=== PATIENT | female | born 1945 | race Caucasian/White ===

== ENCOUNTER → 2018-02-16 16:12 | Outpatient (CLI) | payer MEDICARE, BC, SELFPAY ==
--- NOTE | 2018-02-16 16:23 | DI.RAD.S_ITS ---
PROCEDURE: XR KNEE RT 3V INDICATIONS: pain TECHNIQUE: 3 views of the knee were acquired. COMPARISON: None. FINDINGS: Bones: No fractures or dislocations. No suspicious bony lesions. Soft tissues: No joint effusion. No suspicious soft tissue calcifications. IMPRESSION: Mild medial compartment joint with narrowing, consistent with mild osteoarthritis. A small amount of degenerative spurring is seen at the patellofemoral joint on the lateral projection. Overall, mild osteoarthritis. Dictated by: Seth Gonsalez M.D. on 02/16/2018 at 17:08 Approved by: Seth Gonsalez M.D. on 02/16/2018 at 17:08
--- NOTE | 2018-02-16 16:23 | DI.RAD.S_ITS ---
PROCEDURE: XR HIP W PEL IF DONE RT 2V INDICATIONS: pain TECHNIQUE: AP pelvis with lateral view(s) of the right hip. COMPARISON: None. FINDINGS: Bones: No fractures or dislocations. Pelvic ring appears intact. No suspicious bony lesions. Prior spine fusion posteriorly with transverse pedicle screws and vertical fixation rods and an interbody disc prosthesis at L4-5. Mild hip joint osteoarthritis symmetric bilaterally. Soft tissues: The visualized bowel gas pattern is normal. No suspicious soft tissue calcifications. IMPRESSION: Mild bilateral hip joint osteoarthritis symmetric bilaterally. Prior spine fusion L4-5. No definite acute disease. No trauma found. Dictated by: Seth Gonsalez M.D. on 02/16/2018 at 17:07 Approved by: Seth Gonsalez M.D. on 02/16/2018 at 17:08
== END ==
PROVIDERS: Visit Provider Physician Assistant
DX: M16.0 Bilateral primary osteoarthritis of hip (principal); Z98.1 Arthrodesis status
CPT/HCPCS: 73502; 73562

== ENCOUNTER → 2018-05-26 16:16 | Outpatient (CLI) | payer MEDICARE, BC, SELFPAY ==
--- NOTE | 2018-05-26 | DI.MRI.S_ITS ---
PROCEDURE: MR KNEE RT WO CON INDICATIONS: TEAR TECHNIQUE: Noncontrast sagittal PD fast spin echo and T2 fast spin echo with fat saturation, sagittal 3-D FLASH with fat saturation; coronal T1 spin echo and PD fast spin echo with fat saturation, and axial PD fast spin echo with fat saturation through the knee. COMPARISON: None. FINDINGS: Image quality: Excellent. Menisci: There is no evidence of focal medial or lateral meniscal tear. Degenerative changes are noted in posterior horn medial meniscus. The meniscal root ligaments appear intact. Cruciate ligaments: The anterior and posterior cruciate ligaments appear intact. Medial structures: The medial collateral ligament appears intact. The posterior oblique ligament, semimembranosus tendon insertions, oblique popliteal ligament, and meniscocapsular junction appear intact. Visualized portions of the pes anserinus tendons appear normal. No abnormal bursal fluid. Lateral structures: The lateral collateral ligament, long and short heads of the biceps femoris tendon appear intact. The popliteus tendon appears normal; the popliteofibular ligament appears intact. The posterosuperior and anteroinferior popliteomeniscal fascicles appear intact. The arcuate and fabellofibular ligaments appear intact, on either side of the lateral inferior geniculate artery. Iliotibial band appears normal. Anterior structures: The quadriceps and patellar tendons appear intact. Patellar alignment is normal. No femoral trochlear dysplasia or ventral trochlear prominence. No edema in the infrapatellar fat pad. Bones and cartilage: There is mild to moderate tricompartment osteoarthritis with thinning of articulating cartilages in all 3 compartments, joint space narrowing and subchondral sclerosis. No marrow edema. No fracture or dislocation. Joint space: There is small amount of joint fluid. No Grant's cyst. Normal appearing synovial plicae are incidentally noted. IMPRESSION: 1. Mild to moderate tricompartmental osteoarthritis and small joint effusion. No fracture or dislocation. 2. No MR evidence of focal meniscal tear. Cruciate ligaments are intact. Dictated by: Bentley Bennett M.D. on 05/27/2018 9:17 Approved by: Bentley Bennett M.D. on 05/27/2018 at 10:07
--- NOTE | 2018-05-26 | DI.US.S_ITS ---
PROCEDURE: US PERIPH VENOUS LOW EXTREM RT INDICATIONS: Possible DVT. TECHNIQUE: Real-time imaging, as well as color and pulse Doppler interrogation, were performed of the lower extremity deep veins from the inguinal ligament to the popliteal fossa. COMPARISON: None. FINDINGS: The deep veins are normally compressible, and free of intraluminal thrombus. Color and pulse Doppler demonstrate normal phasic intraluminal flow. There is normal augmentation response to distal compression maneuver. IMPRESSION: No DVT found. Dictated by: Seth Gonsalez M.D. on 05/26/2018 at 16:55 Approved by: Seth Gonsalez M.D. on 05/26/2018 at 17:13
== END ==
PROVIDERS: Visit Provider Physician Assistant Medical
DX: M17.11 Unilateral primary osteoarthritis, right knee (principal); M25.461 Effusion, right knee; Z13.89 Encounter for screening for other disorder
CPT/HCPCS: 73721; 93971

== ENCOUNTER 2019-01-01 12:37 | Emergency (ER) | payer MEDICARE, BC, SELFPAY ==
[2019-01-01 12:41] VITALS: BP 145/70; PULSE 77; RESP 16; TEMP 36.8; O2SAT 99; BMI 28.8
[2019-01-01 13:22] LABS: RBC Urine 1-5/HPF (0-5/HPF)
[2019-01-01 13:23] LABS: Bacteria Urine Moderate (10-30); Culture Indicated Urine Specimen Cultured; Mucus Urine 1+ (Negative); Squamous Epithelial Cell Urine 1-5 /HPF; Urine Comments UNSPUN; WBC Urine 5-10/HPF (0-5/HPF)
--- NOTE | 2019-01-01 14:02 | ED_ITS ---
HPI - Female Genitourinary <CORY Pak - Last Filed: 01/01/19 15:00> General Chief complaint: Urogenital-Female Stated complaint: UTI Time Seen by Provider: 01/01/19 12:59 Source: patient Mode of arrival: ambulatory Limitations: no limitations History of Present Illness HPI Narrative: The patient is a 73-year-old female nonsmoker with history of hypertension and high cholesterol presents with a chief complaint of ?I believe I have a UTI still. She was treated for UTI last month with Macrobid, felt better for a few days and then immediately had dysuria urgency and frequency return. She denies any fevers, nausea vomiting or diarrhea. She denies any abdominal pain. she states she is concerned about her continued symptoms as she is supposed to fly to [place] tomorrow. She denies any vaginal bleeding or vaginal discharge. she denies any rashes. she denies any flank or back pain. Related Data Home Medications Medication Instructions Recorded Confirmed aspirin 81 mg tablet,delayed 81 mg PO DAILY 02/16/18 02/16/18 release atorvastatin 10 mg tablet 10 mg PO DAILY 02/16/18 02/16/18 biotin 1 mg capsule 1 mg PO DAILY 02/16/18 02/16/18 cholecalciferol (vitamin D3) 2,000 2,000 unit PO DAILY 02/16/18 02/16/18 unit capsule [id number]-[id number] tab PO tab 02/16/18 02/16/18 250 mg-250 mg-120 mg tab docusate sodium 100 mg capsule 100 mg PO DAILY 02/16/18 02/16/18 ibuprofen 200 mg tablet 200 mg PO QID PRN 02/16/18 02/16/18 magnesium hydroxide 400 mg/5 mL 5 ml PO BEDTIME PRN 02/16/18 02/16/18 oral suspension omega-3 fatty acids 1,000 mg 1,000 mg PO DAILY 02/16/18 02/16/18 capsule valsartan 40 mg tablet 40 mg PO BID 02/16/18 02/16/18 Allergies Allergy/AdvReac Type Severity Reaction Status Date / Time Sulfa (Sulfonamide Allergy Intermediate rash Verified 01/01/19 12:44 Antibiotics) Review of Systems <CORY Pak - Last Filed: 01/01/19 15:00> Review of Systems GENERAL: Denies chills, fatigue, malaise, fever, sweats. HEENT: Denies sinus pain, ear pain, sore throat, difficulty swallowing, dizziness. RESPIRATORY: Denies dyspnea, cough, wheezing, hemoptysis, sputum. CARDIOVASCULAR: Denies chest pain, palpitations, orthopnea, edema, GASTROINTESTINAL: Denies nausea, vomiting, abdominal pain, diarrhea, constipation, melena. : See HPI MUSCULOSKELETAL: denies weakness, joint pain, or bony pain SKIN: Denies rash, skin lesions, or other NEUROLOGIC: Denies weakness, headache, numbness, change in speech, confusion, seizures, incoordination. PSYCHIATRIC: No concerning psychosocial issues. 12 point review of systems is negative except for those stated above PFSH <CORY Pak - Last Filed: 01/01/19 15:00> Social History Smoking Status: Never smoker Social History Smoking Status: Never smoker Exam <CORY Pak - Last Filed: 01/01/19 15:00> Narrative Exam Narrative: GENERAL: This is a well-nourished, well-developed patient, sitting on stretcher appears anxious HEAD: Atraumatic. Normocephalic. No temporal or scalp tenderness. EYES: Pupils equal round and reactive. Extraocular motions intact. No scleral icterus. No injection or drainage. ENT: Nose without bleeding, purulent drainage or septal hematoma. Throat without erythema, tonsillar hypertrophy or exudate. Uvula midline. Airway patent. NECK: Trachea midline. No JVD or lymphadenopathy. Supple, nontender, no meningeal signs. CARDIOVASCULAR: Regular rate and rhythm RESPIRATORY: Clear to auscultation. Breath sounds equal bilaterally. No wheezes, rales, or rhonchi. No cough. No increased respiratory effort. GASTROINTESTINAL: Abdomen soft, non-tender, nondistended. No hepato- splenomegaly, or palpable masses. No guarding. EXTREMITIES: No clubbing, cyanosis, or edema. No joint tenderness, effusion, or edema noted. BACK: Nontender without deformity or crepitance. No flank tenderness. no CVA tenderness bilaterally. NEURO: AOx3. SKIN: No rash or erythema. Initial Vital Signs Initial Vital Signs: Vital Signs Temperature 98.2 F 01/01/19 12:41 Pulse Rate 77 01/01/19 12:41 Respiratory Rate 16 01/01/19 12:41 Blood Pressure 145/70 H 01/01/19 12:41 Pulse Oximetry 99 01/01/19 12:41 <Danika Layne DO - Last Filed: 01/01/19 17:20> Initial Vital Signs Initial Vital Signs: Vital Signs Temperature 98.2 F 01/01/19 12:41 Pulse Rate 77 01/01/19 12:41 Respiratory Rate 16 01/01/19 12:41 Blood Pressure 145/70 H 01/01/19 12:41 Pulse Oximetry 99 01/01/19 12:41 Course <CORY Pak - Last Filed: 01/01/19 15:00> Orders Ordered: ED Orders 01/01/19 13:17 Urine Culture Stat Urine Microscopic Stat Vital Signs - 8 hr 01/01/19 12:41 01/01/19 14:07 Temperature 98.2 F Pulse Rate 77 62 Respiratory Rate 16 20 Blood Pressure 145/70 H 147/69 H Pulse Oximetry 99 98 <Danika Layne DO - Last Filed: 01/01/19 17:20> Orders Ordered: ED Orders 01/01/19 13:17 Urine Culture Stat Urine Microscopic Stat Vital Signs - 8 hr 01/01/19 12:41 01/01/19 14:07 Temperature 98.2 F Pulse Rate 77 62 Respiratory Rate 16 20 Blood Pressure 145/70 H 147/69 H Pulse Oximetry 99 98 MDM - Female Genitourinary <CORY Pak - Last Filed: 01/01/19 15:00> Lab Data Lab Results 01/01/19 Range/Units 13:17 Urine RBC 1-5/hpf (0-5/HPF) Urine WBC 5-10/hpf H (0-5/HPF) Ur Squamous Epith Cells 1-5 /hpf Urine Bacteria Moderate (10-30) H (None) Urine Mucus 1+ H (Negative) Ur Culture Indicated? Specimen cultured Micro UA Comment Unspun Urine Dip Bedside Urine Glucose 500 mg/dl Bedside Urine Bilirubin - Negative Bedside Urine Ketone +/- 5 Urine Specific Kinsey 1.030 Bedside Urine Occult Blood +/- Bedside Urine pH 6.0 Bedside Urine Protein + 30 Bedside Urine Urobilinogen +/- 1mg Bedside Urine Nitrite - Negative Bedside Urine Leukocytes +++ 500 Esterase MDM Narrative Medical decision making narrative: The patient is a 73-year-old female who presents with chief complaint urinary tract infection symptoms. A UA indicated UTI. She is afebrile, does not have flank pain and is nontoxic appearing and hemodynamically stable. thus I elected to treat her with a different antibiotic. She is allergic to sulfa and has tolerated Cipro while in the past, so I gave her prescription of that. We discussed at length monitoring for tendon pain and/or muscle aches. However her [facility] call stating that she was allergic to Cipro and their system. She had again did declined a Cipro allergy to the pharmacist. However we elected to transfer her to Augmentin 500 mg b.i.d for 7 days. Discussed directly with pharmacist. I discussed at length with the patient that she needs to be re-evaluated if she develops any fevers, vomiting or diarrhea as she is at risk for kidney infection if the UTI continues to not be treated well. she stated understanding and had no questions or co ncerns upon discharge. <Danika Layne, DO - Last Filed: 01/01/19 17:20> Lab Data Lab Results 01/01/19 Range/Units 13:17 Urine RBC 1-5/hpf (0-5/HPF) Urine WBC 5-10/hpf H (0-5/HPF) Ur Squamous Epith Cells 1-5 /hpf Urine Bacteria Moderate (10-30) H (None) Urine Mucus 1+ H (Negative) Ur Culture Indicated? Specimen cultured Micro UA Comment Unspun Urine Dip Bedside Urine Glucose 500 mg/dl Bedside Urine Bilirubin - Negative Bedside Urine Ketone +/- 5 Urine Specific Kinsey 1.030 Bedside Urine Occult Blood +/- Bedside Urine pH 6.0 Bedside Urine Protein + 30 Bedside Urine Urobilinogen +/- 1mg Bedside Urine Nitrite - Negative Bedside Urine Leukocytes +++ 500 Esterase Discharge Plan Departure Patient Disposition: Home Clinical Impression: Urinary tract infection Qualifiers: Urinary tract infection type: site unspecified Hematuria presence: with hematuria Qualified Code(s): N39.0 - Urinary tract infection, site not specified Discharge Date/Time: 01/01/19 14:08 Interventions: ED Discharge Assessment Last Done: 01/01/19 14:07 Instructions: DI for Urinary Tract Infection (UTI) Activity Restrictions/Additional Instructions: I am starting you on another antibiotic for urinary tract infection please monitor for fever, vomiting, diarrhea, and flank pain. These are signs that you are getting sicker any infection might be going to your kidneys. Please rest and push fluids. Please follow up with primary care provider if needed. Please come back to the emergency department for any acute concerns such as inability keep down fluids etc. Please monitor for tendon pain or muscle aches as these could be a side effect of the antibiotic. Please be evaluated if you notice any of these. Prescriptions: No Action omega-3 fatty acids [Fish Oil Concentrate] 1,000 mg capsule 1,000 mg PO DAILY RF: 0 atorvastatin 10 mg tablet 10 mg PO DAILY RF: 0 aspirin [Adult Low Dose Aspirin] 81 mg tablet,delayed release (DR/EC) 81 mg PO DAILY RF: 0 magnesium hydroxide [Roland Milk of Magnesia] 400 mg/5 mL suspension 5 ml PO BEDTIME PRNRF: 0 ibuprofen [Advil] 200 mg tablet 200 mg PO QID PRNRF: 0 docusate sodium [Colace] 100 mg capsule 100 mg PO DAILY RF: 0 valsartan 40 mg tablet 40 mg PO BID RF: 0 [id number]-150hb 250-250-120 mg tablet PO RF: 0 cholecalciferol (vitamin D3) 2,000 unit capsule 2,000 unit PO DAILY RF: 0 biotin 1 mg capsule 1 mg PO DAILY RF: 0 <Danika Layne DO - Last Filed: 01/01/19 17:20> [facility] Attestation: I was immediately available in the department for consultation. Documentation has been reviewed. I agree with assessment and plan.
[2019-01-01 14:07] VITALS: BP 147/69; PULSE 62; RESP 20; O2SAT 98
== END 2019-01-01 14:08 | disposition home or self-care (01) ==
PROVIDERS: Emergency Provider Nurse Practitioner Family
DX: N39.0 Urinary tract infection, site not specified (principal)
CPT/HCPCS: 81003; 81015; 87086; 99283

== ENCOUNTER → 2019-01-15 11:13 | Outpatient (CLI) | payer MEDICARE, BC, SELFPAY | PROVIDERS: Visit Provider Physician Assistant | DX: R07.0 Pain in throat (principal) | CPT/HCPCS: 87070 ==

== ENCOUNTER → 2019-09-13 09:17 | Outpatient (CLI) | payer MEDICARE, BC, SELFPAY ==
--- NOTE | 2019-09-13 | DI.RAD.S_ITS ---
PROCEDURE: XR KNEE LT 3V INDICATIONS: BILATERAL KNEE PAIN TECHNIQUE: 3 views of the knee were acquired. COMPARISON: None. FINDINGS: Bones: No fractures or dislocations. No suspicious bony lesions. Mild tricompartmental knee joint narrowing and para-articular osteophyte formation. Soft tissues: No joint effusion. No suspicious soft tissue calcifications. IMPRESSION: Mild tricompartmental knee joint degeneration. Dictated by: Klever MILNA Interpreted: Lety Camacho MD on 09/13/2019 at 17:28 Approved by: Lety Camacho M.D. on 09/13/2019 at 18:37
--- NOTE | 2019-09-13 | DI.RAD.S_ITS ---
PROCEDURE: XR KNEE RT 3V INDICATIONS: BILATERAL KNEE PAIN TECHNIQUE: 3 views of the knee were acquired. COMPARISON: [facility], , XR KNEE RT 3V, 02/16/2018, 16:05. FINDINGS: Bones: No fractures or dislocations. No suspicious bony lesions. Mild tricompartmental knee joint narrowing. Soft tissues: No joint effusion. No suspicious soft tissue calcifications. IMPRESSION: Mild tricompartmental knee joint degeneration and small effusion. Dictated by: Klever MILAN Interpreted: Lety Camacho MD on 09/13/2019 at 17:29 Approved by: Lety Camacho M.D. on 09/13/2019 at 18:37
--- NOTE | 2019-09-13 | DI.RAD.S_ITS ---
PROCEDURE: XR LUMBAR SPINE 2-3V INDICATIONS: LOWER BACK PAIN TECHNIQUE: 3 views of the lumbar spine were acquired. COMPARISON: None. FINDINGS: Bones: 5 [id number] vertebrae are present. Posterior/interbody fusion at the L4-L5 level. Multilevel disc degeneration, moderate to severe at the L5-S1 level. Moderate lower lumbar spine facet joint arthropathy. There is normal bony alignment. No vertebral body compression fractures. No suspicious bony lesions. Soft tissues: Overlying bowel gas pattern is normal. No suspicious soft tissue calcifications. IMPRESSION: Posterior fixation at the L4-L5 level and multilevel spondylosis. Dictated by: Klever BUENO Interpreted: Lety Camacho MD on 09/13/2019 at 17:31 Approved by: Lety Camacho M.D. on 09/13/2019 at 18:36
== END ==
PROVIDERS: PCP Student in an Organized Health Care Education/Training Program; Visit Provider Student in an Organized Health Care Education/Training Program
DX: M54.5 Low back pain (principal); M47.816 Spondylosis without myelopathy or radiculopathy, lumbar region; M51.37 Other intervertebral disc degeneration, lumbosacral region; M25.561 Pain in right knee; M25.562 Pain in left knee; M17.0 Bilateral primary osteoarthritis of knee; Z98.1 Arthrodesis status
CPT/HCPCS: 72100; 73562

== ENCOUNTER → 2021-03-25 10:38 | Outpatient (CLI) | payer MEDICARE, BC, SELFPAY ==
[2021-03-25 12:44] LABS: BUN Creatinine Ratio 15.8 (6-22); Blood Urea Nitrogen 9 mg/dL (7-17); Calcium 9.6 mg/dL (8.4-10.2); Carbon Dioxide 25 mmol/L (22-32); Chloride 100 mmol/L (98-107); Cholesterol 260 mg/dL (140-199); Estimated Glomerular Filt Rate > 60.0 mL/min (>60); Glucose 98 mg/dL (80-110); HEMOLYSIS < 15 (0-50); Potassium 4.4 mmol/L (3.4-5.1); Sodium 130 mmol/L (137-145); Triglycerides 133 mg/dL (35-150)
[2021-03-25 12:58] LABS: HDL Cholesterol 118 mg/dL (40-60); LDL Cholesterol Calculated 115 mg/dL (<100)
== END ==
PROVIDERS: PCP Student in an Organized Health Care Education/Training Program; Referring Provider Student in an Organized Health Care Education/Training Program; Visit Provider Student in an Organized Health Care Education/Training Program
DX: M85.851 Other specified disorders of bone density and structure, right thigh (principal); Z78.0 Asymptomatic menopausal state; E78.2 Mixed hyperlipidemia; E55.9 Vitamin D deficiency, unspecified; Z13.820 Encounter for screening for osteoporosis; I10 Essential (primary) hypertension
CPT/HCPCS: 36415; 77080; 80048; 80061; 82306

== ENCOUNTER → 2021-04-09 10:11 | Outpatient (CLI) | payer MEDICARE, BC, SELFPAY ==
[2021-04-10 11:42] LABS: Fecal Immunochemical Test Negative (Negative)
== END ==
PROVIDERS: PCP Student in an Organized Health Care Education/Training Program; Referring Provider Student in an Organized Health Care Education/Training Program; Visit Provider Student in an Organized Health Care Education/Training Program
DX: Z12.11 Encounter for screening for malignant neoplasm of colon (principal)
CPT/HCPCS: 82274

== ENCOUNTER → 2021-06-18 09:23 | Outpatient (CLI) | payer MEDICARE, BC, SELFPAY ==
[2021-06-18 10:46] LABS: Blood Urea Nitrogen 9 mg/dL (7-17); Calcium 9.2 mg/dL (8.4-10.2); Carbon Dioxide 28 mmol/L (22-32); Chloride 104 mmol/L (98-107); Cholesterol 265 mg/dL (140-199); Estimated Glomerular Filt Rate > 60.0 mL/min (>60); Glucose 106 mg/dL (80-110); HEMOLYSIS < 15 (0-50); Potassium 4.5 mmol/L (3.4-5.1); Sodium 137 mmol/L (137-145); Triglycerides 112 mg/dL (35-150)
[2021-06-18 10:59] LABS: HDL Cholesterol 148 mg/dL (40-60); LDL Cholesterol Calculated 95 mg/dL (<100); Vitamin D 25 Hydroxy (D3) 52.7 ng/mL (30.0-100.0)
== END ==
PROVIDERS: PCP Student in an Organized Health Care Education/Training Program; Referring Provider Student in an Organized Health Care Education/Training Program; Visit Provider Student in an Organized Health Care Education/Training Program
DX: E78.2 Mixed hyperlipidemia (principal); M81.0 Age-related osteoporosis without current pathological fracture; E87.1 Hypo-osmolality and hyponatremia
CPT/HCPCS: 36415; 80048; 80061; 82306

== ENCOUNTER → 2021-07-22 14:13 | Outpatient (CLI) | payer MEDICARE, BC, SELFPAY ==
--- NOTE | 2021-07-22 14:16 | DI.RAD.S_ITS ---
PROCEDURE: XR LUMBAR SPINE 2-3V INDICATIONS: Low back pain TECHNIQUE: 3 views of the lumbar spine were acquired. COMPARISON: [facility], CR, XR LUMBAR SPINE 2-3V, 09/13/2019, 9:23. FINDINGS: Bones: 5 [id number] vertebrae are present. Again noted are post fusion changes at L4-5 level. Lumbar spine alignment is unchanged from previous study. No gross hardware loosening or failure. No vertebral body compression fractures. No suspicious bony lesions. Soft tissues: Overlying bowel gas pattern is normal. No suspicious soft tissue calcifications. IMPRESSION: Stable lumbar spine alignment. No gross hardware complication. No acute compression fracture or spondylolisthesis. Dictated by: Bentley Bennett M.D. on 07/22/2021 at 15:57 Approved by: Bentley Bennett M.D. on 07/22/2021 at 15:58
--- NOTE | 2021-07-22 14:16 | DI.RAD.S_ITS ---
PROCEDURE: XR HIP W PEL IF DONE EBONY MIN 4V INDICATIONS: Hip pain TECHNIQUE: AP pelvis with lateral view(s) of the bilateral hip(s). COMPARISON: [facility], CR, XR HIP W PEL IF DONE RT 2V, 02/16/2018, 16:05. FINDINGS: Bones: No fractures or dislocations. Pelvic ring appears intact. No suspicious bony lesions. Mild bilateral joint space narrowing and subchondral sclerosis, slightly increased from the prior exam. Lower lumbar spine discectomy and fusion with instrumentation noted. Soft tissues: The visualized bowel gas pattern is normal. No suspicious soft tissue calcifications. IMPRESSION: Bilateral hip osteoarthritis, slightly increased from the prior. Stable L4-5 discectomy and fusion with instrumentation. Approved by: Yosi Bridges M.D. on 07/22/2021 at 18:16
== END ==
PROVIDERS: PCP Student in an Organized Health Care Education/Training Program; Referring Provider Student in an Organized Health Care Education/Training Program; Visit Provider Student in an Organized Health Care Education/Training Program
DX: M54.50 Low back pain, unspecified (principal); M16.0 Bilateral primary osteoarthritis of hip; M25.559 Pain in unspecified hip; Z98.1 Arthrodesis status
CPT/HCPCS: 72100; 73522

== ENCOUNTER 2021-10-16 15:38 | Emergency (ER) | payer MEDICARE, BC, SELFPAY ==
[2021-10-16 16:01] VITALS: BP 181/77; PULSE 71; RESP 16; TEMP 36.4; O2SAT 100; BMI 29.2
--- NOTE | 2021-10-16 19:46 | ED.GIBLEED ---
HPI - GI Bleed General Chief complaint: GI Bleed Stated complaint: PASSED BLACK STOOL Time Seen by Provider: 10/16/21 19:45 Source: patient Mode of arrival: Ambulatory History of Present Illness HPI Narrative: 76-year-old female nonsmoker with history of hyperlipidemia and osteoporosis presents with a chief complaint of dark stools for the past few days. She denies any pain and is not dizzy nor weak or lightheaded. She denies the use of Pepto-Bismol or other stomach medicines. She states that she takes aspirin frequently for arthritis. She denies any history of ulcers and states she has never had an abnormal colonoscopy. She is otherwise well and free of complaint Related Data Home Medications Medication Instructions Recorded Confirmed aspirin 81 mg tablet,delayed 81 mg PO DAILY 02/16/18 07/22/21 release (Adult Low Dose Aspirin) biotin 1 mg capsule 1 mg PO DAILY 02/16/18 07/22/21 docusate sodium 100 mg capsule 100 mg PO DAILY 02/16/18 07/22/21 (Colace) omega-3 fatty acids 1,000 mg 1,000 mg PO DAILY 02/16/18 07/22/21 capsule (Fish Oil Concentrate) cholecalciferol (vitamin D3) 50 800 unit PO DAILY cap 06/20/21 07/22/21 mcg (2,000 unit) capsule Previous Rx's Medication Instructions Recorded pregabalin 25 mg capsule 25 mg PO .COMPLEX #90 cap 02/27/21 atorvastatin 20 mg tablet 20 mg PO DAILY #90 tab 03/27/21 losartan 25 mg tablet 25 mg PO DAILY #90 tab 06/28/21 alendronate 70 mg tablet 70 mg PO QWEEK #12 tab 07/30/21 Allergies Allergy/AdvReac Type Severity Reaction Status Date / Time Sulfa (Sulfonamide Allergy Intermediate rash Verified 10/16/21 16:03 Antibiotics) Review of Systems Review of Systems Narrative: GENERAL: Denies chills, fatigue, malaise, fever, sweats. HEENT: Denies sinus pain, ear pain, sore throat, difficulty swallowing, dizziness. RESPIRATORY: Denies dyspnea, cough, wheezing, hemoptysis, sputum. CARDIOVASCULAR: Denies chest pain, palpitations, orthopnea, edema, GASTROINTESTINAL: See HPI : Denies dysuria, frequency, incontinence, hematuria, urinary retention. MUSCULOSKELETAL: denies weakness, joint pain, or bony pain SKIN: Denies rash, skin lesions, or other NEUROLOGIC: Denies weakness, headache, numbness, change in speech, confusion, seizures, incoordination. PSYCHIATRIC: No concerning psychosocial issues. 12 point review of systems is negative except for those stated above Patient History Social History Smoking Status: Never smoker Smoking Status: Never smoker alcohol intake frequency: holidays/special occasions only Substance Use Type: does not use Exam Narrative Exam Narrative: GENERAL: 76 ] year old patient appears stated age. Well-developed patient, in mild distress. HEAD: Atraumatic. Normocephalic. EYES: Pupils equal round and reactive. Extraocular motions intact. No scleral icterus. No injection or drainage. ENT: Nose without bleeding, purulent drainage. Throat without erythema, tonsillar hypertrophy or exudate. Airway patent. NECK: Trachea midline. Non tender CARDIOVASCULAR: Regular rate and rhythm without murmurs, gallops, or rubs. RESPIRATORY: Clear to auscultation. Breath sounds equal bilaterally. No wheezes, rales, or rhonchi. GASTROINTESTINAL: Abdomen soft, non-tender, nondistended. RECTAL: No fissure, hemorrhoid or pain. No stool in vault, small amount of mucus sampled which is heme-positive EXTREMITIES: No edema or joint tenderness. BACK: Nontender without deformity or crepitance. No flank tenderness. NEURO: AOx3. SKIN: No rash or erythema of visible areas Initial Vital Signs Initial Vital Signs: Vital Signs Temperature 97.6 F 10/16/21 16:01 Pulse Rate 71 10/16/21 16:01 Respiratory Rate 16 10/16/21 16:01 Blood Pressure 181/77 H 10/16/21 16:01 Pulse Oximetry 100 10/16/21 16:01 Course Orders Ordered: ED Orders 10/16/21 20:38 Complete Blood Count AUTO DIFF Stat Comprehensive Metabolic Panel Stat Prothrombin Time INR Stat Type and Screen Stat 10/16/21 22:45 Salicylate Stat 10/16/21 22:55 HH [Hemoglobin and Hematocrit] Stat Vital Signs Vital signs: Vital Signs - 8 hr 10/17/21 00:01 Pulse Rate 60 Respiratory Rate 18 Blood Pressure 165/78 H Pulse Oximetry 100 MDM - GI Bleed Lab Data Result diagrams: 10/16/21 22:55 10/16/21 20:38 Labs: Lab Results 10/16/21 10/16/21 10/16/21 Range/Units 20:38 20:38 20:38 WBC 5.6 (4.5-11.0) X10^3/uL RBC 3.07 L (4.0-5.2) X10^6/uL Hgb 9.2 L (12.0-16.0) g/dL Hct 27.4 L (36-46) % MCV 89.1 (80-100) fL MCH 30.0 (26-34) PG MCHC 33.6 (30-36) % RDW 13.4 (11.6-14.8) % Plt Count 167 (150-400) X10^3/uL Neut % (Auto) 38.5 L (50-75) % Lymph % (Auto) 51.9 H (25-40) % [place] % (Auto) 7.2 (3-14) % Eos % (Auto) 0.4 L (2-4) % Baso % (Auto) 2.0 (0-2) % Neut # (Auto) 2200 (0339-4656) /uL Lymph # (Auto) 2900 (6900-5703) /uL [place] # (Auto) 400 (0-900) /uL Eos # (Auto) 0 (0-450) /uL Baso # (Auto) 100 (0-100) /uL PT (10.1-12.7) SECONDS INR (0.9-1.3) Sodium 136 L (137-145) mmol/L Potassium 4.4 (3.4-5.1) mmol/L Chloride 106 (98-107) mmol/L Carbon Dioxide 29 (22-32) mmol/L BUN 10 (7-17) mg/dL Creatinine 0.57 (0.52-1.04) mg/dL Estimated GFR > 60.0 (>60) mL/min BUN/Creatinine Ratio 17.5 (6-22) Glucose 103 (80-110) mg/dL Calcium 9.2 (8.4-10.2) mg/dL Total Bilirubin 0.4 (0.2-1.3) mg/dL AST 22 (14-36) IU/L ALT 14 (<35) IU/L Alkaline Phosphatase 38 (38-126) U/L Total Protein 6.3 (6.3-8.2) g/dL Albumin 3.8 (3.5-5.0) g/dL Globulin 2.5 (1.7-4.1) g/dL Albumin/Globulin Ratio 1.5 (1.0-2.8) Salicylates (<20) mg/dL Blood Type O Positive Antibody Screen Negative 10/16/21 10/16/21 10/16/21 Range/Units 20:38 22:45 22:55 WBC (4.5-11.0) X10^3/uL RBC (4.0-5.2) X10^6/uL Hgb 9.9 L (12.0-16.0) g/dL Hct 29.1 L (36-46) % MCV (80-100) fL MCH (26-34) PG MCHC (30-36) % RDW (11.6-14.8) % Plt Count (150-400) X10^3/uL Neut % (Auto) (50-75) % Lymph % (Auto) (25-40) % [place] % (Auto) (3-14) % Eos % (Auto) (2-4) % Baso % (Auto) (0-2) % Neut # (Auto) (8098-6293) /uL Lymph # (Auto) (4672-1317) /uL [place] # (Auto) (0-900) /uL Eos # (Auto) (0-450) /uL Baso # (Auto) (0-100) /uL PT 12.2 (10.1-12.7) SECONDS INR 1.1 (0.9-1.3) Sodium (137-145) mmol/L Potassium (3.4-5.1) mmol/L Chloride (98-107) mmol/L Carbon Dioxide (22-32) mmol/L BUN (7-17) mg/dL Creatinine (0.52-1.04) mg/dL Estimated GFR (>60) mL/min BUN/Creatinine Ratio (6-22) Glucose (80-110) mg/dL Calcium (8.4-10.2) mg/dL Total Bilirubin (0.2-1.3) mg/dL AST (14-36) IU/L ALT (<35) IU/L Alkaline Phosphatase (38-126) U/L Total Protein (6.3-8.2) g/dL Albumin (3.5-5.0) g/dL Globulin (1.7-4.1) g/dL Albumin/Globulin Ratio (1.0-2.8) Salicylates < 1.0 (<20) mg/dL Blood Type Antibody Screen MDM Narrative Medical decision making narrative: Patient with very reassuring history and physical exam. Vitals are stable. Initial hemoglobin low no old labs available for comparison. A repeat demonstrates improvement if anything. Very minimal if any active bleeding noted. Extensive discussion with patient regarding her use of aspirin and it is likely contribution to her symptoms. Salicylate level is normal. Patient awake, or ambulatory. She is tolerating orals without difficulty. Extensive return precautions discussed, minimizing use of Excedrin and other NSAIDs discussed, questions answered to her apparent satisfaction. Discharge Plan Departure Patient Disposition: Home Clinical Impression: Acute GI bleeding Instructions: Gastrointestinal Bleeding Activity Restrictions/Additional Instructions: *You have been diagnosed with [mild gastrointestinal bleeding. Thankfully your physical exam and labs are very reassuring. As we discussed you take multiple NSAIDs per day which are likely contributing to this bleeding. Please try to avoid taking Excedrin and stick only to the baby aspirin you take at night *What to do: *Please continue to take your regular medications as directed. [x ] New medication prescriptions sent to your pharmacy: [[facility] ] [ ] New medication written as a paper prescription [ ] No new medications given *Please follow up with your primary care provider in 2-3 days, call for an appointment. Let them know you were seen in the Emergency Department and that we ask that you be seen in follow up. We will electronically transmit a record of today's note if your PCP is in our system *If you do not have a primary care provider please contact the [facility] Resource line at [phone]. They will ask some questions about your medical history and help get you set up with a doctor in the community. *Return to Emergency Department if you should have any new, worsening or concerning symptoms, such as [fever greater than 101 F, shaking chills, worsening pain, persistent vomiting or other bothersome symptoms] Prescriptions: No Action omega-3 fatty acids [Fish Oil Concentrate] 1,000 mg capsule 1,000 mg PO DAILY 0RF aspirin [Adult Low Dose Aspirin] 81 mg tablet,delayed release (DR/EC) 81 mg PO DAILY 0RF docusate sodium [Colace] 100 mg capsule 100 mg PO DAILY 0RF biotin 1 mg capsule 1 mg PO DAILY 0RF pregabalin 25 mg capsule 25 mg PO .COMPLEX Qty: 90 5RF Rx Instructions: 25 mg PO 1 cap in the morning, 2 caps at bedtime; atorvastatin 20 mg tablet 20 mg PO DAILY Qty: 90 3RF losartan 25 mg tablet 25 mg PO DAILY Qty: 90 2RF alendronate 70 mg tablet 70 mg PO QWEEK Qty: 12 3RF cholecalciferol (vitamin D3) 50 mcg (2,000 unit) capsule 800 unit PO DAILY 0RF Referrals: Julián Francis MD [Primary Care Provider] -
[2021-10-16 21:00] LABS: Add Manual Diff / Slide Review NO; Basophils Absolute Auto 100 /uL (0-100); Eosinophils Absolute Auto 0 /uL (0-450); Eosinophils Percent Auto 0.4 % (2-4); Hematocrit 27.4 % (36-46); Hemoglobin 9.2 g/dL (12.0-16.0); Lymphocytes Absolute Auto 2900 /uL (1100-4500); Lymphocytes Percent Auto 51.9 % (25-40); Mean Corpuscular HGB Conc 33.6 % (30-36); Mean Corpuscular Volume 89.1 fL (80-100); Monocytes Absolute Auto 400 /uL (0-900); Monocytes Percent Auto 7.2 % (3-14); Neutrophils Absolute Auto 2200 /uL (1500-7000); Neutrophils Percent Auto 38.5 % (50-75); Platelet Count 167 X10^3/uL (150-400); Red Blood Cell Count 3.07 X10^6/uL (4.0-5.2); Red Cell Distribution Width 13.4 % (11.6-14.8); White Blood Cell Count 5.6 X10^3/uL (4.5-11.0)
[2021-10-16 21:09] LABS: INR 1.1 (0.9-1.3); Prothrombin Time 12.2 SECONDS (10.1-12.7)
[2021-10-16 21:16] LABS: Alanine Aminotransferase 14 IU/L (<35); Albumin 3.8 g/dL (3.5-5.0); Albumin Globulin Ratio 1.5 (1.0-2.8); Alkaline Phosphatase 38 U/L (38-126); Aspartate Aminotransferase 22 IU/L (14-36); BUN Creatinine Ratio 17.5 (6-22); Bilirubin Total 0.4 mg/dL (0.2-1.3); Blood Urea Nitrogen 10 mg/dL (7-17); Calcium 9.2 mg/dL (8.4-10.2); Carbon Dioxide 29 mmol/L (22-32); Chloride 106 mmol/L (98-107); Estimated Glomerular Filt Rate > 60.0 mL/min (>60); Globulin 2.5 g/dL (1.7-4.1); Glucose 103 mg/dL (80-110); HEMOLYSIS < 15 (0-50); Potassium 4.4 mmol/L (3.4-5.1); Sodium 136 mmol/L (137-145); Total Protein 6.3 g/dL (6.3-8.2)
[2021-10-16 23:04] LABS: Hematocrit 29.1 % (36-46); Hemoglobin 9.9 g/dL (12.0-16.0)
[2021-10-16 23:40] LABS: Salicylate < 1.0 mg/dL (<20)
[2021-10-17 00:01] VITALS: BP 165/78; PULSE 60; RESP 18; O2SAT 100
== END 2021-10-17 00:03 | disposition home or self-care (01) ==
PROVIDERS: Emergency Provider Emergency Medicine; PCP Student in an Organized Health Care Education/Training Program
DX: K92.2 Gastrointestinal hemorrhage, unspecified (principal)
CPT/HCPCS: 36415; 80053; 80329; 85014; 85018; 85025; 85610; 86850; 86900; 86901; 99283; G0480

== ENCOUNTER 2021-12-05 10:30 | Outpatient (RCR) | payer MEDICARE, BC, SELFPAY ==
--- NOTE | 2021-11-11 17:10 | PT.OPPOC ---
Physical, Occupational & Speech Therapy At [facility] Current Diagnoses Stiffness of unspecified hip, not elsewhere classified (11/11/21) Sciatica, right side (11/11/21) Other symptoms and signs involving the musculoskeletal system (11/11/21) Visit Care Team Role Provider Type Julián Francis MD Attending Provider Physician Family Provider Primary Care Provider Referring Provider Specialty: Internal Medicine Address: [address] [place] [address], [address], [address] Email: [email or web address] Plan Of Care PT-OP-T Assessment and Plan Start: 11/08/21 17:47 Freq: Status: Active Protocol: Document 11/11/21 14:20 LRN (Rec: 11/11/21 17:53 LRN [id number]) Physical Therapy Assessment Rehab Potential Rehabilitation Potential Good Evaluation Complexity Number of Personal Factors/Comorbidities 3 or More Number of Body Systems Impaired 4 or More Clinical Presentation at Evaluation Evolving Impairments Impairments Activity Tolerance,Functional Activities,Pain,Sensation,Soft Tissue Mobility,Strength Goals Four Impairment Pt lacks supportive footwear ( failing orthotic) [employer] Goal (LTG) Pt will be fit for an over-the -counter arch support. LTG Duration 11/15/21 Three Impairment Decreased core stability Short Term Goal (STG) Pt will be placed on a hip strengthening program to improve pelvic/core stability. STG Duration 12/28/21 Wine Pasteurizer Goal (LTG) Pt will demonstrate ability to maintain a stable core with manual muscle testing of the LE's. LTG Duration 02/09/22 Two Impairment Low back and R Sciatic pain rated 5/10. Impairment ROBBY score initially is 28 (20- 39% impaired). Short Term Goal (STG) Reduce pain in the low back and R LE to a tolerable level (3/10). STG Duration 12/28/21 Skilled Nursing Goal (LTG) Improve function per ROBBY score less than 20. LTG Duration 02/09/22 One Impairment Pt lacks appropriate self care HEP Short Term Goal (STG) Pt will be educated in an initial self care ex program to be done while on her pilgrimage. STG Duration 11/15/21 Wine Pasteurizer Goal (LTG) Pt will be independent in a self care HEP exercise program to improve LB mobility and core/hip stability. LTG Duration 02/09/22 Assessment Summary Assessment Pt presents with complaints of bilateral low back pain and R sciatic pain that has worsened with lack of arch support due to failing support of her current orthotic, and due to decreased stability of her R hip and core and lack of an appriopriate self care program. The pt primary goal this week is to obtain a supportive arch for her feet because she is leaving in a week for a 14 day pilgrimage. It was explained that we do not make orthotics but the pt is agreeable to being fit for [id number] Superfeet arch supports at the next appointment. The pt will return from her pilgrimage to complete her physical therapy rehabilitation, addressing her bilateral low back and R sciatic pain. The pt will benefit from skilled physical therapy to achieve the above stated goals. Physical Therapy Plan Frequency and Duration Frequency of Treatment 2x/Week Plan of Care Start Date 11/11/21 Plan of Care End Date 02/09/22 Therapeutic Interventions Therapeutic Interventions Home Exercise Program,Manual Therapy,Neuromuscular Re- education,Patient/Caregiver Education,Self-Care/Home Management,Soft Tissue Mobilization,Therapeutic Activities,Therapeutic Exercises Modalities Cold Pack/Ice Massage,Hot Packs Next Visit Focus/Plan Next Note Type Treatment Note Next Visit Plan Fit pt for proper superfeet supports and gradual progression of wearing the supports over time, Assess gait. Initiate HEP: Core stab, R hip IR & trunk flex stretch, gentle trunk ext, (if time clamshell w/TA). Core and R hip stabilization. Plan of Care Dates Plan of Care Start Date 11/11/21 Plan of Care End Date 02/09/22 Electronically Signed by: Melita Romano, PT 11/12/21 0822 Please Sign and Return: I have reviewed this Plan of Care and certify that the skilled therapy services above are required to meet the patient?s needs. Physician Signature Date Printed Name and Credentials Clinical Instructor Signature Printed Name and Credentials
--- NOTE | 2021-11-11 17:10 | PT.OIE ---
Current Diagnoses Stiffness of unspecified hip, not elsewhere classified (11/11/21) Sciatica, right side (11/11/21) Other symptoms and signs involving the musculoskeletal system (11/11/21) Visit Care Team Role Provider Type Julián Francis MD Attending Provider Physician Family Provider Primary Care Provider Referring Provider Specialty: Internal Medicine Address: [address] [place] [address], [facility] Email: [email or web address] Physical Therapy Initial Evaluation PT-OP-A Visit Information Start: 11/08/21 17:47 Freq: Status: Active Protocol: Document 11/11/21 14:20 LRN (Rec: 11/11/21 17:53 LRN [id number]) Out-Patient Physical Therapy Visit Information Visit Information Visit Type Initial Evaluation Visit Start Time 14:20 Visit Stop Time 15:13 Total Visit Minutes 53 Visit Number 1 Evaluation Information Evaluation Date 11/11/21 Precautions Precautions Per intake form: Arthritis, back pain, depression, memory loss, osteoporosis, dizziness on standing. Per records review: Flexor hallucis longus tendonitis, bilateral tendonitis, polyarthritis. PT-OP-B Current Condition Start: 11/08/21 17:47 Freq: Status: Active Protocol: Document 11/11/21 14:20 LRN (Rec: 11/11/21 17:53 LRN [id number]) Current Condition History of Current Condition Onset Date 5-6 yrs ago Current Complaints LBP and R sciatic pain and no arch supports for the shoes. History of Current Condition Has had back pain for 5-6 yrs. It has continued to worsen and she is planning on going on a 14 day pilgrimage in a week and wants to get some supports for her feet. Pt states without the arch it throws her balance off, and that contributes to her back pain. Pain is across the low back and down the R leg ( sciatic pain). Spouse has passed, she has 2 children. Wears a soft back brace that she purchased at [employer]. Feet size is 7-7.5 Prior Treatments and Tests Has had X-ray done 3-4 yrs ago . Future Testing and Treatments Planned No. Developmental History Developmental History Takes Lyrica for sleep Fell a long time ago and landing on her knee, and also fell while going down concrete stairs, and bounced down the stairs. She states having back surgery when something metal was put in her back because of missing cartilage between vertebrae. Treatment Goals Patient/Caregiver Goals Pt's goal is to get an arch support for the shoes, to strengthen the back and legs and reduce pain in the lower, HEP exercise program. Prior Functional Status Baseline Function- ADL's Independent Baseline Function- Mobility Independent Baseline Function- Gait 1.5 yrs ago walked 2 hours. 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 Current Functional Impairments (Reported) Functional Limitations- ADL's More difficult vaccuming and hasn't vacummed for a year or two. Functional Limitations- Mobility/Gait Doesn't walk often. Functional Limitations- Other Can sit ~1 hr before getting up to move. Will have to sit (10 hrs) on airplane to get to [place]. Personal Factors Other Personal Factors That May Effect Forgetfulness. Therapy/Recovery Has not walked for any length of distance recently. Pt leaving in 1 week for a 14 day pilgrimage. PT-OP-C Subjective Start: 11/08/21 17:47 Freq: Status: Active Protocol: Document 11/11/21 14:20 LRN (Rec: 11/11/21 17:53 LRN [id number]) Patient Questionnaires Oswestry Low Back Index Oswestry Score 28 Oswestry Impairment 20 to 39% Impaired (Score 20- 39) OP-PT Pain Assessment Pain Assessment Grid Paper Pain Assessment Grid Completed Yes Location Low Back Pain Location Details Low back pain Intensity 5 Scale Used Numeric (0 - 10) Description- Other Toothache, deep inside. PT-OP-H Neuro Start: 11/08/21 17:47 Freq: Status: Active Protocol: Document 11/11/21 14:20 LRN (Rec: 11/11/21 17:53 LRN [id number]) Sensation Evaluation Gross Sensation Sensation Description Numbness Comments Summary Comments Sometimes numbness in R 3-5th toes and lateral foot. Currently normal. Deep Tendon Reflex & Clonus Assessment Deep Tendon Reflex Bilateral Patellar Deep Tendon Reflex 1+ Diminished Left Achilles Deep Tendon Reflex 1+ Diminished Right Achilles Deep Tendon Reflex 0 Absent PT-OP-J Posture/Palpation/Skin Start: 11/08/21 17:47 Freq: Status: Active Protocol: Document 11/11/21 14:20 LRN (Rec: 11/11/21 17:53 LRN [id number]) Posture Evaluation Position Standing Head/C-Spine Posture Forward Head T-Spine Posture Increased Kyphosis L-Spine Posture Decreased Lordosis Hip Posture (L) Flexed,(R) Flexed,(L) Externally Rotated,(R) Externally Rotated Ankle/Foot Posture (R) Calcaneal Eversion,(L) Calcaneal Inversion Foot Arch (L) Low Arch,(R) Low Arch Comments Posture Comments Hips flexed 11 deg's. Wide stance. Low Arch: L is flatter than R. PT-OP-K Range of Motion Start: 11/08/21 17:47 Freq: Status: Active Protocol: Document 11/11/21 14:20 LRN (Rec: 11/11/21 17:53 LRN [id number]) Lumbar Spine Range of Motion Lumbar Spine Active Degrees Testing Position Standing Flexion 90 Extension 15 Rotation Left 20 Rotation Right 20 Lateral Flexion Left 5 Lateral Flexion Right 10 ROM Limitations Soft Tissue Tightness Comments Trunk flex is with 80 deg's hip flexion Trunk ext is with 15 deg's hip extension Hip Goniometric Range of Motion Hip Right Passive Testing Position Supine Flexion w/Knee Flexed 110 Straight Leg Raise 100 Internal Rotation 40 External Rotation 55 Comments KTC relieves LBP Left Passive Hip ROM WFL Yes Testing Position Supine Flexion w/Knee Flexed 110 Straight Leg Raise 85 Internal Rotation 35 External Rotation 50 Comments KTC relieves LBP PT-OP-L Special Tests Start: 11/08/21 17:47 Freq: Status: Active Protocol: Document 11/11/21 14:20 LRN (Rec: 11/11/21 17:53 LRN [id number]) Special Tests Lumbar Spine Special Tests Straight Leg Raise Test Results Negative bilaterally PT-OP-M Strength Start: 11/08/21 17:47 Freq: Status: Active Protocol: Document 11/11/21 14:20 LRN (Rec: 11/11/21 17:53 LRN [id number]) Trunk Strength Trunk Manual Muscle Testing Core Stabilization Lacks rotational core stabilization during LE MMT. Hip Strength Hip Manual Muscle Testing Right Flexion (L2) 5 Normal Left Flexion (L2) 5 Normal PT-OP-Q Treatments Start: 11/08/21 17:47 Freq: Status: Active Protocol: Document 11/11/21 14:20 LRN (Rec: 11/11/21 17:53 LRN [id number]) Self-Care/Home Management Treatment Education Other Education Discussed results of evaluation, goals, and at length plan of care (POC), including plan before and after her pilgrimage. Pt agreeable to goals and POC. Educated pt in Superfeet over- the-counter arch supports with a discussion of the different types. Reviewed pricing and purchasing through hospital or foot store in [facility]. PT-OP-T Assessment and Plan Start: 11/08/21 17:47 Freq: Status: Active Protocol: Document 11/11/21 14:20 LRN (Rec: 11/11/21 17:53 LRN [id number]) Physical Therapy Assessment Rehab Potential Rehabilitation Potential Good Evaluation Complexity Number of Personal Factors/Comorbidities 3 or More Number of Body Systems Impaired 4 or More Clinical Presentation at Evaluation Evolving Impairments Impairments Activity Tolerance,Functional Activities,Pain,Sensation,Soft Tissue Mobility,Strength Goals Four Impairment Pt lacks supportive footwear ( failing orthotic) Correction Goal (LTG) Pt will be fit for an over-the -counter arch support. LTG Duration 11/15/21 Three Impairment Decreased core stability Short Term Goal (STG) Pt will be placed on a hip strengthening program to improve pelvic/core stability. STG Duration 12/28/21 Correction Goal (LTG) Pt will demonstrate ability to maintain a stable core with manual muscle testing of the LE's. LTG Duration 02/09/22 Two Impairment Low back and R Sciatic pain rated 5/10. Impairment ROBBY score initially is 28 (20- 39% impaired). Short Term Goal (STG) Reduce pain in the low back and R LE to a tolerable level (3/10). STG Duration 12/28/21 Correction Goal (LTG) Improve function per ROBBY score less than 20. LTG Duration 02/09/22 One Impairment Pt lacks appropriate self care HEP Short Term Goal (STG) Pt will be educated in an initial self care ex program to be done while on her pilgrimage. STG Duration 11/15/21 Correction Goal (LTG) Pt will be independent in a self care HEP exercise program to improve LB mobility and core/hip stability. LTG Duration 02/09/22 Assessment Summary Assessment Pt presents with complaints of bilateral low back pain and R sciatic pain that has worsened with lack of arch support due to failing support of her current orthotic, and due to decreased stability of her R hip and core and lack of an appriopriate self care program. The pt primary goal this week is to obtain a supportive arch for her feet because she is leaving in a week for a 14 day pilgrimage. It was explained that we do not make orthotics but the pt is agreeable to being fit for [id number] Superfeet arch supports at the next appointment. The pt will return from her pilgrimage to complete her physical therapy rehabilitation, addressing her bilateral low back and R sciatic pain. The pt will benefit from skilled physical therapy to achieve the above stated goals. Physical Therapy Plan Frequency and Duration Frequency of Treatment 2x/Week Plan of Care Start Date 11/11/21 Plan of Care End Date 02/09/22 Therapeutic Interventions Therapeutic Interventions Home Exercise Program,Manual Therapy,Neuromuscular Re- education,Patient/Caregiver Education,Self-Care/Home Management,Soft Tissue Mobilization,Therapeutic Activities,Therapeutic Exercises Modalities Cold Pack/Ice Massage,Hot Packs Next Visit Focus/Plan Next Note Type Treatment Note Next Visit Plan Fit pt for proper superfeet supports and gradual progression of wearing the supports over time, Assess gait. Initiate HEP: Core stab, R hip IR & trunk flex stretch, gentle trunk ext, (if time clamshell w/TA). Core and R hip stabilization.
--- NOTE | 2021-12-05 17:27 | PT.OTN ---
Current Diagnoses Stiffness of unspecified hip, not elsewhere classified (12/05/21) Sciatica, right side (12/05/21) Other symptoms and signs involving the musculoskeletal system (12/05/21) Physical Therapy Treatment Note PT-OP-A Visit Information Start: 11/08/21 17:47 Freq: Status: Active Protocol: Document 12/05/21 10:41 LRN (Rec: 12/05/21 11:20 LRN [id number]) Out-Patient Physical Therapy Visit Information Visit Information Visit Type Treatment Note Visit Start Time 10:41 Visit Stop Time 11:19 Total Visit Minutes 38 Visit Number 2 Evaluation Information Evaluation Date 11/11/21 Precautions Precautions Per intake form: Arthritis, back pain, depression, memory loss, osteoporosis, dizziness on standing. Per records review: Flexor hallucis longus tendonitis, bilateral tendonitis, polyarthritis. PT-OP-B Current Condition Start: 11/08/21 17:47 Freq: Status: Active Protocol: Document 11/11/21 14:20 LRN (Rec: 11/11/21 17:53 LRN [id number]) Current Condition History of Current Condition Onset Date 5-6 yrs ago Current Complaints LBP and R sciatic pain and no arch supports for the shoes. History of Current Condition Has had back pain for 5-6 yrs. It has continued to worsen and she is planning on going on a 14 day pilgrimage in a week and wants to get some supports for her feet. Pt states without the arch it throws her balance off, and that contributes to her back pain. Pain is across the low back and down the R leg ( sciatic pain). Spouse has passed, she has 2 children. Wears a soft back brace that she purchased at [employer]. Feet size is 7-7.5 Prior Treatments and Tests Has had X-ray done 3-4 yrs ago . Future Testing and Treatments Planned No. Developmental History Developmental History [place] for sleep Fell a long time ago and landing on her knee, and also fell while going down concrete stairs, and bounced down the stairs. She states having back surgery when something metal was put in her back because of missing cartilage between vertebrae. Treatment Goals Patient/Caregiver Goals Pt's goal is to get an arch support for the shoes, to strengthen the back and legs and reduce pain in the lower, HEP exercise program. Prior Functional Status Baseline Function- ADL's Independent Baseline Function- Mobility Independent Baseline Function- Gait 1.5 yrs ago walked 2 hours. 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 Current Functional Impairments (Reported) Functional Limitations- ADL's More difficult vaccuming and hasn't vacummed for a year or two. Functional Limitations- Mobility/Gait Doesn't walk often. Functional Limitations- Other Can sit ~1 hr before getting up to move. Will have to sit (10 hrs) on airplane to get to [place]. Personal Factors Other Personal Factors That May Effect Forgetfulness. Therapy/Recovery Has not walked for any length of distance recently. Pt leaving in 1 week for a 14 day pilgrimage. PT-OP-C Subjective Start: 11/08/21 17:47 Freq: Status: Active Protocol: Document 12/05/21 10:41 LRN (Rec: 12/05/21 11:20 LRN [id number]) OP-PT Subjective Patient Comments Patient Comments NO change. Wearing a back and R knee brace; therefore defers supine ex's. Back from trip and had a hard time on the plane. Was able to do the walking but it was difficulty and stairs were really hard. She wore her back and R knee brace. PT-OP-H Neuro Start: 11/08/21 17:47 Freq: Status: Active Protocol: Document 11/11/21 14:20 LRN (Rec: 11/11/21 17:53 LRN [id number]) Sensation Evaluation Gross Sensation Sensation Description Numbness Comments Summary Comments Sometimes numbness in R 3-5th toes and lateral foot. Currently normal. Deep Tendon Reflex & Clonus Assessment Deep Tendon Reflex Bilateral Patellar Deep Tendon Reflex 1+ Diminished Left Achilles Deep Tendon Reflex 1+ Diminished Right Achilles Deep Tendon Reflex 0 Absent PT-OP-J Posture/Palpation/Skin Start: 11/08/21 17:47 Freq: Status: Active Protocol: Document 11/11/21 14:20 LRN (Rec: 11/11/21 17:53 LRN [id number]) Posture Evaluation Position Standing Head/C-Spine Posture Forward Head T-Spine Posture Increased Kyphosis L-Spine Posture Decreased Lordosis Hip Posture (L) Flexed,(R) Flexed,(L) Externally Rotated,(R) Externally Rotated Ankle/Foot Posture (R) Calcaneal Eversion,(L) Calcaneal Inversion Foot Arch (L) Low Arch,(R) Low Arch Comments Posture Comments Hips flexed 11 deg's. Wide stance. Low Arch: L is flatter than R. PT-OP-K Range of Motion Start: 11/08/21 17:47 Freq: Status: Active Protocol: Document 11/11/21 14:20 LRN (Rec: 11/11/21 17:53 LRN [id number]) Lumbar Spine Range of Motion Lumbar Spine Active Degrees Testing Position Standing Flexion 90 Extension 15 Rotation Left 20 Rotation Right 20 Lateral Flexion Left 5 Lateral Flexion Right 10 ROM Limitations Soft Tissue Tightness Comments Trunk flex is with 80 deg's hip flexion Trunk ext is with 15 deg's hip extension Hip Goniometric Range of Motion Hip Right Passive Testing Position Supine Flexion w/Knee Flexed 110 Straight Leg Raise 100 Internal Rotation 40 External Rotation 55 Comments KTC relieves LBP Left Passive Hip ROM WFL Yes Testing Position Supine Flexion w/Knee Flexed 110 Straight Leg Raise 85 Internal Rotation 35 External Rotation 50 Comments KTC relieves LBP PT-OP-L Special Tests Start: 11/08/21 17:47 Freq: Status: Active Protocol: Document 11/11/21 14:20 LRN (Rec: 11/11/21 17:53 LRN [id number]) Special Tests Lumbar Spine Special Tests Straight Leg Raise Test Results Negative bilaterally PT-OP-M Strength Start: 11/08/21 17:47 Freq: Status: Active Protocol: Document 11/11/21 14:20 LRN (Rec: 11/11/21 17:53 LRN [id number]) Trunk Strength Trunk Manual Muscle Testing Core Stabilization Lacks rotational core stabilization during LE MMT. Hip Strength Hip Manual Muscle Testing Right Flexion (L2) 5 Normal Left Flexion (L2) 5 Normal PT-OP-Q Treatments Start: 11/08/21 17:47 Freq: Status: Active Protocol: Document 12/05/21 10:41 LRN (Rec: 12/05/21 11:20 LRN [id number]) Therapeutic Exercises Supine Exercises Hip flexor stretch Supine Exercise Name Leg over side of table - DC'd due to onset sciatic pain Side left Reps/Minutes 2' KTC stretch Supine Exercise Name KTC stretch Side left Reps/Minutes 3' Piriformis Supine Exercise Name Piriformis stretch Side left Reps/Minutes 4' Comments Extra time for training of position and max christy position Sitting Exercises Pelvic Tilts Sitting Exercise Name Pelvic Tilts Reps/Minutes 5 H x 10 Comments V cuing needed for proper movement. Tunk flex stretch Sitting Exercise Name Trunk flex stretch Reps/Minutes 2 breath holds x 10 Comments Extra time for proper stretch and stretch tolerance Piriformis stretch Sitting Exercise Name Piriformis stretch Side bilateral Reps/Minutes 10 H, x10 L, x8 R. Comments phy&v cuing needed,domo on L side to get tolerable stretch. L sitting uprig Self-Care/Home Management Treatment Education Other Education Discussed use of superfeet, pt stated she had one at home after some discussion; therefore pt will bring her's in. Activities Self-Care/Home Management Activities Issued & reviewed HEP: Batsheva VASQUEZ Piriformis stretch in sit & sup. PT-OP-T Assessment and Plan Start: 11/08/21 17:47 Freq: Status: Active Protocol: Document 12/05/21 10:41 LRN (Rec: 12/05/21 11:20 LRN [id number]) Physical Therapy Assessment Goals Four Impairment Pt lacks supportive footwear ( failing orthotic) Protocol Manager Goal (LTG) Pt will be fit for an over-the -counter arch support. LTG Duration 11/15/21 Three Impairment Decreased core stability Short Term Goal (STG) Pt will be placed on a hip strengthening program to improve pelvic/core stability. STG Duration 12/28/21 Protocol Manager Goal (LTG) Pt will demonstrate ability to maintain a stable core with manual muscle testing of the LE's. LTG Duration 02/09/22 Two Impairment Low back and R Sciatic pain rated 5/10. Impairment ROBBY score initially is 28 (20- 39% impaired). Short Term Goal (STG) Reduce pain in the low back and R LE to a tolerable level (3/10). STG Duration 12/28/21 Nursing Home Goal (LTG) Improve function per ROBBY score less than 20. LTG Duration 02/09/22 One Impairment Pt lacks appropriate self care HEP Short Term Goal (STG) Pt will be educated in an initial self care ex program to be done while on her pilgrimage. STG Duration 11/15/21 Protocol Manager Goal (LTG) Pt will be independent in a self care HEP exercise program to improve LB mobility and core/hip stability. LTG Duration 02/09/22 Assessment Summary Assessment Pt attends after returning from her pilgramage trip. She appeared to have a difficult time with the sitting during the flight and presents today wearing a soft back brace and soft knee brace. Pt at first was resistive to supine ex's but later agreed to supine ex' s. Pt needs much cuing for performing ex. L posterior leg pain with stretch to anterior thigh muscles. Physical Therapy Plan Frequency and Duration Frequency of Treatment 2x/Week Plan of Care Start Date 11/11/21 Plan of Care End Date 02/09/22 Next Visit Focus/Plan Next Note Type Treatment Note Next Visit Plan Assess gait Review sitting R hip IR & trunk flex stretch, add active stretch after passive stretch . Initiate HEP: Core stab, trunk flex stretch, gentle trunk ext, (if time clamshell w/TA). Core and R hip stabilization.
--- NOTE | 2022-04-22 09:41 | PT.OPDS ---
Current Diagnoses Stiffness of unspecified hip, not elsewhere classified (12/05/21) Sciatica, right side (12/05/21) Other symptoms and signs involving the musculoskeletal system (12/05/21) Visit Care Team Role Provider Type Julián Francis MD Attending Provider Physician Family Provider Primary Care Provider Referring Provider Specialty: Internal Medicine Address: [address] [place] [address], [address], [facility] Email: [email or web address] Visit Number Visit Number 2 Discharge Summary PT-OP-B Current Condition Start: 11/08/21 17:47 Freq: Status: Active Protocol: Document 11/11/21 14:20 LRN (Rec: 11/11/21 17:53 LRN [id number]) Current Condition History of Current Condition Onset Date 5-6 yrs ago Current Complaints LBP and R sciatic pain and no arch supports for the shoes. History of Current Condition Has had back pain for 5-6 yrs. It has continued to worsen and she is planning on going on a 14 day pilgrimage in a week and wants to get some supports for her feet. Pt states without the arch it throws her balance off, and that contributes to her back pain. Pain is across the low back and down the R leg ( sciatic pain). Spouse has passed, she has 2 children. Wears a soft back brace that she purchased at [employer]. Feet size is 7-7.5 Prior Treatments and Tests Has had X-ray done 3-4 yrs ago . Future Testing and Treatments Planned No. Developmental History Developmental History [place] for sleep Fell a long time ago and landing on her knee, and also fell while going down concrete stairs, and bounced down the stairs. She states having back surgery when something metal was put in her back because of missing cartilage between vertebrae. Treatment Goals Patient/Caregiver Goals Pt's goal is to get an arch support for the shoes, to strengthen the back and legs and reduce pain in the lower, HEP exercise program. Prior Functional Status Baseline Function- ADL's Independent Baseline Function- Mobility Independent Baseline Function- Gait 1.5 yrs ago walked 2 hours. 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 Current Functional Impairments (Reported) Functional Limitations- ADL's More difficult vaccuming and hasn't vacummed for a year or two. Functional Limitations- Mobility/Gait Doesn't walk often. Functional Limitations- Other Can sit ~1 hr before getting up to move. Will have to sit (10 hrs) on airplane to get to [place]. Personal Factors Other Personal Factors That May Effect Forgetfulness. Therapy/Recovery Has not walked for any length of distance recently. Pt leaving in 1 week for a 14 day pilgrimage. PT-OP-C Subjective Start: 11/08/21 17:47 Freq: Status: Active Protocol: Document 12/05/21 10:41 LRN (Rec: 12/05/21 11:20 LRN [id number]) OP-PT Subjective Patient Comments Patient Comments NO change. Wearing a back and R knee brace; therefore defers supine ex's. Back from trip and had a hard time on the plane. Was able to do the walking but it was difficulty and stairs were really hard. She wore her back and R knee brace. PT-OP-H Neuro Start: 11/08/21 17:47 Freq: Status: Active Protocol: Document 11/11/21 14:20 LRN (Rec: 11/11/21 17:53 LRN [id number]) Sensation Evaluation Gross Sensation Sensation Description Numbness Comments Summary Comments Sometimes numbness in R 3-5th toes and lateral foot. Currently normal. Deep Tendon Reflex & Clonus Assessment Deep Tendon Reflex Bilateral Patellar Deep Tendon Reflex 1+ Diminished Left Achilles Deep Tendon Reflex 1+ Diminished Right Achilles Deep Tendon Reflex 0 Absent PT-OP-J Posture/Palpation/Skin Start: 11/08/21 17:47 Freq: Status: Active Protocol: Document 11/11/21 14:20 LRN (Rec: 11/11/21 17:53 LRN [id number]) Posture Evaluation Position Standing Head/C-Spine Posture Forward Head T-Spine Posture Increased Kyphosis L-Spine Posture Decreased Lordosis Hip Posture (L) Flexed,(R) Flexed,(L) Externally Rotated,(R) Externally Rotated Ankle/Foot Posture (R) Calcaneal Eversion,(L) Calcaneal Inversion Foot Arch (L) Low Arch,(R) Low Arch Comments Posture Comments Hips flexed 11 deg's. Wide stance. Low Arch: L is flatter than R. PT-OP-K Range of Motion Start: 11/08/21 17:47 Freq: Status: Active Protocol: Document 11/11/21 14:20 LRN (Rec: 11/11/21 17:53 LRN [id number]) Lumbar Spine Range of Motion Lumbar Spine Active Degrees Testing Position Standing Flexion 90 Extension 15 Rotation Left 20 Rotation Right 20 Lateral Flexion Left 5 Lateral Flexion Right 10 ROM Limitations Soft Tissue Tightness Comments Trunk flex is with 80 deg's hip flexion Trunk ext is with 15 deg's hip extension Hip Goniometric Range of Motion Hip Right Passive Testing Position Supine Flexion w/Knee Flexed 110 Straight Leg Raise 100 Internal Rotation 40 External Rotation 55 Comments KTC relieves LBP Left Passive Hip ROM WFL Yes Testing Position Supine Flexion w/Knee Flexed 110 Straight Leg Raise 85 Internal Rotation 35 External Rotation 50 Comments KTC relieves LBP PT-OP-L Special Tests Start: 11/08/21 17:47 Freq: Status: Active Protocol: Document 11/11/21 14:20 LRN (Rec: 11/11/21 17:53 LRN [id number]) Special Tests Lumbar Spine Special Tests Straight Leg Raise Test Results Negative bilaterally PT-OP-M Strength Start: 11/08/21 17:47 Freq: Status: Active Protocol: Document 11/11/21 14:20 LRN (Rec: 11/11/21 17:53 LRN [id number]) Trunk Strength Trunk Manual Muscle Testing Core Stabilization Lacks rotational core stabilization during LE MMT. Hip Strength Hip Manual Muscle Testing Right Flexion (L2) 5 Normal Left Flexion (L2) 5 Normal PT-OP-T Assessment and Plan Start: 11/08/21 17:47 Freq: Status: Active Protocol: Document 04/22/22 09:36 LRN (Rec: 04/22/22 09:41 LRN [id number]) Physical Therapy Assessment Goals Four Impairment Pt lacks supportive footwear ( failing orthotic) Mechanical Laboratory Technician Goal (LTG) Pt will be fit for an over-the -counter arch support. LTG Duration 11/15/21 Three Impairment Decreased core stability Short Term Goal (STG) Pt will be placed on a hip strengthening program to improve pelvic/core stability. STG Duration 12/28/21 Jail Goal (LTG) Pt will demonstrate ability to maintain a stable core with manual muscle testing of the LE's. LTG Duration 02/09/22 Two Impairment Low back and R Sciatic pain rated 5/10. Impairment ROBBY score initially is 28 (20- 39% impaired). Short Term Goal (STG) Reduce pain in the low back and R LE to a tolerable level (3/10). STG Duration 12/28/21 Mechanical Laboratory Technician Goal (LTG) Improve function per ROBBY score less than 20. LTG Duration 02/09/22 One Impairment Pt lacks appropriate self care HEP Short Term Goal (STG) Pt will be educated in an initial self care ex program to be done while on her pilgrimage. STG Duration 11/15/21 Jail Goal (LTG) Pt will be independent in a self care HEP exercise program to improve LB mobility and core/hip stability. LTG Duration 02/09/22 Assessment Summary Assessment Pt was seen for her initial evaluation and one treatment session. The pt failed to call back to schedule more visits; therefore the pt is being discharged due to lack of attendance. She will need a new referral if physical therapy is needed. Goals were not met. Physical Therapy Plan Discharge Physical Therapy Discharge Reasons No Longer Attending PT Discharge Comments Thank you for your referral.
== END 2022-04-28 14:45 ==
LOC: PHYS 10:30
PROVIDERS: Family Provider Student in an Organized Health Care Education/Training Program; PCP Student in an Organized Health Care Education/Training Program; Referring Provider Student in an Organized Health Care Education/Training Program; Visit Provider Student in an Organized Health Care Education/Training Program
DX: M54.31 Sciatica, right side (principal); M25.659 Stiffness of unspecified hip, not elsewhere classified; R29.898 Other symptoms and signs involving the musculoskeletal system
CPT/HCPCS: 97110; 97162; 97535

== ENCOUNTER → 2022-05-15 15:36 | Outpatient (CLI) | payer MEDICARE, BC, SELFPAY ==
--- NOTE | 2022-05-15 15:37 | DI.MRI.S_ITS ---
PROCEDURE: MR LUMBAR SPINE WO CON INDICATIONS: Chronic Right sciatica TECHNIQUE: Noncontrast sagittal T1 spin echo and T2 fast echo, sagittal STIR, and T2 fast spin echo through the lumbar spine. In cases with scoliosis, additional coronal T2 fast spin echo may be performed. COMPARISON: [facility], CR, XR LUMBAR SPINE 2-3V, 07/22/2021, 14:29. FINDINGS: Image quality: There is artifact associated with the metallic hardware. Alignment and Curvature: There is normal bony alignment. Bone Marrow: Marrow is of normal overall signal. No acute vertebral body compression fractures. Spinal Cord: Conus medullaris terminates at the L1 level. Visualized cord demonstrates normal signal and size. Paraspinous Soft Tissues: No paravertebral masses. T12-L1: Normal appearance. L1-L2: Normal appearance. L2-L3: The disc height is well-preserved. Loss of disc signal is seen at this level. Mild to moderate disc bulge is seen. Mild to moderate bilateral neural foraminal narrowing is seen. There is [id number] central canal narrowing. L3-L4: The disc height is well-preserved. Loss of disc signal is seen at this level. Moderate generalized disc bulge is seen. At least moderate facet hypertrophy can be seen. There is at least moderate right-sided and moderate to severe left-sided neural foraminal narrowing. There is a degree of compression seen upon the exiting left L3 nerve root. Moderate central canal narrowing is seen. L4-L5: Postoperative changes are seen at this level, with bilateral pedicle screws and vertical fixation rods. A disc spacer is seen. There has been removal of portions of the posterior elements. There is no significant right-sided and moderate left-sided neural foraminal narrowing. The central canal is widely patent. L5-S1: Moderate loss of disc height is seen. Loss of disc signal is seen. Moderate disc bulge is seen, which is eccentric to the left. There is a central/left disc extrusion seen, with inferior migration of the disc material, as on series 4, image 11 and on series 7 image 13. Mass effect can be seen upon the transiting left S1 nerve root. Moderate facet joint hypertrophy is seen. There is moderate to severe bilateral neural foraminal narrowing seen, with an associated a degree of compression seen upon the exiting nerve roots. Mild central canal narrowing is seen. IMPRESSION: Focal degenerative change is seen at the L5-S1 level, including a central/left disc extrusion, with inferior migration of the disc material. Should mass effect upon the transiting left S1 nerve root. Unremarkable L4-5 postoperative change. Dictated by: Betito Winn M.D. on 05/15/2022 at 16:53 Approved by: Betito Winn M.D. on 05/15/2022 at 16:56
== END ==
PROVIDERS: Family Provider Student in an Organized Health Care Education/Training Program; PCP Student in an Organized Health Care Education/Training Program; Referring Provider Student in an Organized Health Care Education/Training Program; Visit Provider Student in an Organized Health Care Education/Training Program
DX: M51.17 Intervertebral disc disorders with radiculopathy, lumbosacral region (principal); M47.27 Other spondylosis with radiculopathy, lumbosacral region
CPT/HCPCS: 72148

== ENCOUNTER → 2022-06-02 06:56 | Outpatient (CLI) | payer MEDICARE, BC, SELFPAY ==
[2022-06-02 08:15] LABS: Reticulocyte Count, Percent 1.6 % (1.1-2.6)
[2022-06-02 08:59] LABS: Ferritin 14 ng/mL (11-264)
[2022-06-02 09:14] LABS: HEMOLYSIS < 15 (0-50); Iron 100 ug/dL (37-170)
[2022-06-02 09:25] LABS: Percent Iron Saturation 29 % (15-50); Total Iron Binding Capacity 347 ug/dL (265-497); Transferrin 278 mg/dL (206-381)
[2022-06-02 09:30] LABS: Folate 16.6 ng/mL (2.76-20.0); Vitamin B12 493 pg/mL (239-931)
[2022-06-02 09:44] LABS: TSH w/ Reflex to FT4 1.91 uIU/mL (0.47-4.68)
== END ==
PROVIDERS: Family Provider Student in an Organized Health Care Education/Training Program; PCP Student in an Organized Health Care Education/Training Program; Referring Provider Student in an Organized Health Care Education/Training Program; Visit Provider Student in an Organized Health Care Education/Training Program
DX: Z87.19 Personal history of other diseases of the digestive system (principal); R26.89 Other abnormalities of gait and mobility
CPT/HCPCS: 36415; 82607; 82728; 82746; 83540; 83550; 84443; 85045

== ENCOUNTER → 2022-09-15 15:39 | Outpatient (CLI) | payer MEDICARE, BC, SELFPAY ==
[2022-09-15 18:38] LABS: Appearance Urine UA CLEAR; Bilirubin Urine UA NEGATIVE (NEGATIVE); Color Urine UA YELLOW; Glucose Urine UA TRACE g/dL (Negative); Ketones Urine UA NEGATIVE (NEGATIVE); Leukocyte Esterase Urine UA TRACE (NEGATIVE); Nitrite Urine UA NEGATIVE (Negative); Occult Blood Urine UA NEGATIVE (Negative); Protein Urine UA NEGATIVE (Negative); Urobilinogen Urine UA 0.2 E.U./dL (0.2)
[2022-09-15 18:41] LABS: pH Urine UA 7.5 (4.5-8.0)
[2022-09-15 18:55] LABS: Amorphous Sediment Urine 1+; Bacteria Urine None Seen; Culture Indicated Urine Cult Not Indicated; RBC Urine None Seen (0-5/HPF); Squamous Epithelial Cell Urine 0-1 /HPF (0-5/HPF); WBC Urine 0-1/HPF (0-5/HPF)
== END ==
PROVIDERS: Family Provider Student in an Organized Health Care Education/Training Program; PCP Student in an Organized Health Care Education/Training Program; Referring Provider Registered Nurse Diabetes Educator; Visit Provider Registered Nurse Diabetes Educator
DX: R30.0 Dysuria (principal)
CPT/HCPCS: 81001

== ENCOUNTER → 2022-09-16 07:37 | Outpatient (CLI) | payer MEDICARE, BC, SELFPAY | PROVIDERS: Family Provider Student in an Organized Health Care Education/Training Program; PCP Student in an Organized Health Care Education/Training Program; Visit Provider Registered Nurse Diabetes Educator | DX: R30.0 Dysuria (principal) | CPT/HCPCS: 87086 ==

== ENCOUNTER → 2022-12-09 16:09 | Outpatient (CLI) | payer MEDICARE, BC, SELFPAY ==
[2022-12-09 16:26] LABS: Appearance Urine UA CLEAR; Bilirubin Urine UA NEGATIVE (NEGATIVE); Color Urine UA YELLOW; Glucose Urine UA 1+ g/dL (Negative); Ketones Urine UA NEGATIVE (NEGATIVE); Leukocyte Esterase Urine UA 1+ (NEGATIVE); Nitrite Urine UA NEGATIVE (Negative); Occult Blood Urine UA NEGATIVE (Negative); Protein Urine UA NEGATIVE (Negative); Specific Gravity Urine UA 1.025 (1.000-1.035); Urobilinogen Urine UA 0.2 E.U./dL (0.2)
[2022-12-09 16:36] LABS: RBC Urine None Seen (0-5/HPF); WBC Urine 5-10/HPF (0-5/HPF)
[2022-12-09 16:37] LABS: Bacteria Urine Occasional (0-1); Culture Indicated Urine Specimen Cultured; Renal Epithelial Cells Urine 0-1/HPF (0-1/HPF)
== END ==
PROVIDERS: Family Provider Student in an Organized Health Care Education/Training Program; PCP Student in an Organized Health Care Education/Training Program; Referring Provider Student in an Organized Health Care Education/Training Program; Visit Provider Student in an Organized Health Care Education/Training Program
DX: R30.0 Dysuria (principal)
CPT/HCPCS: 81001; 87086

== ENCOUNTER → 2023-03-23 07:13 | Outpatient (CLI) | payer MEDICARE, BC, SELFPAY | PROVIDERS: Family Provider Student in an Organized Health Care Education/Training Program; PCP Student in an Organized Health Care Education/Training Program; Visit Provider Nurse Practitioner Family | DX: N39.0 Urinary tract infection, site not specified (principal); N89.8 Other specified noninflammatory disorders of vagina | CPT/HCPCS: 87086; 87210 ==

== ENCOUNTER 2023-04-04 11:50 | Emergency (ER) | payer MEDICARE, BC, SELFPAY ==
[2023-04-04 11:52] VITALS: BP 178/72; PULSE 67; RESP 16; TEMP 36.9; O2SAT 99; BMI 27.6
--- NOTE | 2023-04-04 12:14 | ED.FEMALEGU ---
HPI - Female Genitourinary <Aide Funes PA-C - Last Filed: 04/04/23 13:23> General Chief complaint: Urogenital-Female Stated complaint: UTI Time Seen by Provider: 04/04/23 11:54 Source: patient Mode of arrival: Ambulatory History of Present Illness HPI Narrative: This is a 77-year-old woman with a history of hypertension, hyperlipidemia, polyarthritis, previous UTI and yeast infection who presents with concern for possible UTI or yeast infection. Patient states for about 2 weeks now she is been having itching and burning specifically with urination. She feels like her skin is irritated in the vaginal area although she notes she has not really been able to look at it. She states that she was previously seen for this a few weeks ago and was prescribed nystatin she has been using this without any improvement in her symptoms. She states she also did take the oral pill prescribed fluconazole. She denies flank pain, fevers, chills, nausea, vomiting, loss of appetite, diarrhea, vaginal discharge or any other symptoms. Patient states she is not sexually active. Related Data Home Medications Medication Instructions Recorded Confirmed aspirin 81 mg tablet,delayed 81 mg PO DAILY 02/16/18 03/10/23 release (Adult Low Dose Aspirin) biotin 1 mg capsule 1 mg PO DAILY 02/16/18 03/10/23 docusate sodium 100 mg capsule 100 mg PO DAILY 02/16/18 03/10/23 (Colace) omega-3 fatty acids 1,000 mg 1,000 mg PO DAILY 02/16/18 03/10/23 capsule (Fish Oil Concentrate) cholecalciferol (vitamin D3) 50 800 unit PO DAILY 06/20/21 03/10/23 mcg (2,000 unit) capsule turmeric PO 11/03/22 03/10/23 Previous Rx's Medication Instructions Recorded pregabalin 25 mg capsule 25 mg PO .COMPLEX #90 caps 09/15/22 lisinopril 20 mg tablet 20 mg PO DAILY blood pressure #90 11/03/22 tabs alendronate 70 mg tablet 70 mg PO QWEEK #12 tabs 12/08/22 nystatin 100,000 unit/gram topical 1 applic topical BID #60 grams 03/10/23 cream fluconazole 200 mg tablet 200 mg PO DAILY yeast #2 tabs 03/27/23 (Diflucan) fluconazole 100 mg tablet 100 mg PO DAILY 2 days #2 tabs 04/04/23 (Diflucan) hydrocortisone 1 % topical cream 1 applic topical BID-QID PRN skin 04/04/23 packet irritation #144 ea Allergies Allergy/AdvReac Type Severity Reaction Status Date / Time Sulfa (Sulfonamide Allergy Intermediate rash Verified 04/04/23 11:57 Antibiotics) Review of Systems <Aide Funes PA-C - Last Filed: 04/04/23 13:23> Review of Systems Narrative: See HPI Patient History <Aide Funes PA-C - Last Filed: 04/04/23 13:23> Medical History Facet arthropathy, lumbar Flexor hallucis longus tendonitis Hyponatremia Internal hemorrhoids Lumbosacral radiculopathy Osteoporosis Snoring alcohol intake frequency: holidays/special occasions only Substance Use Type: does not use Exam <Aide Funes PA-C - Last Filed: 04/04/23 13:23> Narrative Exam Narrative: GENERAL: 77 year old patient appears stated age. Well-developed patient, in mild distress. HEAD: Atraumatic. Normocephalic. EYES: Pupils equal round and reactive. Extraocular motions intact. No scleral icterus. No injection or drainage. ENT: Nose without bleeding, purulent drainage. Airway patent. NECK: Trachea midline. CARDIOVASCULAR: Regular rate and rhythm without murmurs, gallops, or rubs. RESPIRATORY: Clear to auscultation. Breath sounds equal bilaterally. No wheezes, rales, or rhonchi. GASTROINTESTINAL: Abdomen nondistended, no CVA tenderness. EXTREMITIES: No edema or joint tenderness. BACK: No flank tenderness. NEURO: AOx3. SKIN: No rash or erythema of visible areas Initial Vital Signs Initial Vital Signs: Vital Signs Temperature 98.4 F 04/04/23 11:52 Pulse Rate 67 04/04/23 11:52 Respiratory Rate 16 04/04/23 11:52 Blood Pressure 178/72 H 04/04/23 11:52 Pulse Oximetry 99 04/04/23 11:52 Oxygen Delivery Method Room Air 04/04/23 11:52 <Con Ruiz DO - Last Filed: 04/04/23 13:49> Initial Vital Signs Initial Vital Signs: Vital Signs Temperature 98.4 F 04/04/23 11:52 Pulse Rate 67 04/04/23 11:52 Respiratory Rate 16 04/04/23 11:52 Blood Pressure 178/72 H 04/04/23 11:52 Pulse Oximetry 99 04/04/23 11:52 Oxygen Delivery Method Room Air 04/04/23 11:52 Course <Aide Funes PA-C - Last Filed: 04/04/23 13:23> Orders Ordered: ED Orders 04/04/23 12:35 Wet Prep Tric BV Patricia Stat Vital Signs Vital signs: Vital Signs - 8 hr 04/04/23 11:52 04/04/23 13:33 Temperature 98.4 F Pulse Rate 67 70 Respiratory Rate 16 14 Blood Pressure 178/72 H 131/78 Pulse Oximetry 99 99 Oxygen Delivery Method Room Air Room Air <Con Ruiz DO - Last Filed: 04/04/23 13:49> Orders Ordered: ED Orders 04/04/23 12:35 Wet Prep Tric BV Patricia Stat Vital Signs Vital signs: Vital Signs - 8 hr 04/04/23 11:52 04/04/23 13:33 Temperature 98.4 F Pulse Rate 67 70 Respiratory Rate 16 14 Blood Pressure 178/72 H 131/78 Pulse Oximetry 99 99 Oxygen Delivery Method Room Air Room Air MDM - Female Genitourinary <Aide Funes PA-C - Last Filed: 04/04/23 13:23> Differential Diagnosis Differential diagnosis: Likely urinary tract infection, bacterial vaginosis and other (yeast infection) Medical Records Attestation: I reviewed the patient's medical records. Lab Data Attestation: I reviewed the patient's lab results. Labs: Urine Dip Bedside Urine Glucose 100 mg/dl Bedside Urine Bilirubin - Negative Bedside Urine Ketone - Negative Urine Specific [place] 1.020 Bedside Urine Occult Blood - Negative Bedside Urine pH 6.0 Bedside Urine Protein - Negative Bedside Urine Urobilinogen - Negative Bedside Urine Nitrite - Negative Bedside Urine Leukocytes - Negative Esterase MDM Narrative Medical decision making narrative: This is a well-appearing 77-year-old woman who presents with about 2 weeks of symptoms of vaginal discomfort and itching with urination specifically. History and symptoms are certainly suggestive of yeast infection, however she has no findings on her wet prep and a negative UA urinalysis today as well. She is generally well-appearing with unremarkable vitals and I have low suspicion for acute intra-abdominal pelvic process. Additional labs or imaging are not obtained. Patient did a self swab for her wet prep. Additional fluconazole prescribed today she did take this in the past 2 weeks, as well as nystatin cream the nystatin cream was ineffective. She is also prescribed a topical steroid cream today for symptomatic relief and advised to follow up closely with PCP and consider seeing woman's health provider if her present symptoms are persistent. Return precautions provided, follow-up plan discussed, all questions answered. <Con Ruiz, DO - Last Filed: 04/04/23 13:49> Lab Data Labs: Urine Dip Bedside Urine Glucose 100 mg/dl Bedside Urine Bilirubin - Negative Bedside Urine Ketone - Negative Urine Specific [place] 1.020 Bedside Urine Occult Blood - Negative Bedside Urine pH 6.0 Bedside Urine Protein - Negative Bedside Urine Urobilinogen - Negative Bedside Urine Nitrite - Negative Bedside Urine Leukocytes - Negative Esterase Discharge Plan Departure Patient Disposition: Home Clinical Impression: Itching in the vaginal area Activity Restrictions/Additional Instructions: *You have been diagnosed with [ itching/pain of vaginal area] *What to do: *Please continue to take your regular medications as directed. [ 1] New medication prescriptions sent to your pharmacy: [Diflucan ] [ ] New medication written as a paper prescription [ ] No new medications given *Please follow up with your primary care provider in 2-3 days, call for an appointment. Let them know you were seen in the Emergency Department and that we ask that you be seen in follow up. We will electronically transmit a record of today's note if your PCP is in our system. I strongly recommend you follow-up with your primary care provider for further evaluation, or woman's health provider, once again we did not see evidence of yeast on the wet prep the obtained and it does not look like you have a UTI, based on your symptoms I am suspicious that you have a yeast infection and am prescribing an oral medication to treat this, additionally I am prescribing a topical steroid cream, however for any reason this is not effective I do want you to follow-up closely with your primary care provider or see a women's health provider for further evaluation. *If you do not have a primary care provider please contact the [facility] Resource line at [phone]. They will ask some questions about your medical history and help get you set up with a doctor in the community. *Return to Emergency Department if you should have any new, worsening or concerning symptoms, such as [fever greater than 101 F, shaking chills, worsening pain, persistent vomiting or other bothersome symptoms] Prescriptions: New fluconazole [Diflucan] 100 mg tablet 100 mg PO DAILY 2 Days Qty: 2 0RF hydrocortisone 1 % cream in packet 1 applic topical BID-QID PRN (Reason: skin irritation) Qty: 144 0RF No Action omega-3 fatty acids [Fish Oil Concentrate] 1,000 mg capsule 1,000 mg PO DAILY aspirin [Adult Low Dose Aspirin] 81 mg tablet,delayed release (DR/EC) 81 mg PO DAILY docusate sodium [Colace] 100 mg capsule 100 mg PO DAILY biotin 1 mg capsule 1 mg PO DAILY pregabalin 25 mg capsule 25 mg PO .COMPLEX Qty: 90 5RF Rx Instructions: 25 mg PO 1 cap in the morning, 2 caps at bedtime; fluconazole [Diflucan] 200 mg tablet 200 mg PO DAILY Qty: 2 0RF Rx Instructions: Pt takes one now and one in 3 days cholecalciferol (vitamin D3) 50 mcg (2,000 unit) capsule 800 unit PO DAILY turmeric PO lisinopril 20 mg tablet 20 mg PO DAILY Qty: 90 3RF nystatin 100,000 unit/gram cream 1 applic topical BID Qty: 60 0RF alendronate 70 mg tablet 70 mg PO QWEEK Qty: 12 3RF Referrals: Julián Francis MD [Primary Care Provider] - Stand Alone Forms: Patient Portal/API <Con Ruiz, DO - Last Filed: 04/04/23 13:49> Cosign ED Attending Cosignature Attestation: Dr Ruiz Co-Sign Statement: I was available for consultation during this patient's emergency department visit. This chart is signed by myself for administrative purposes only. I did not have direct contact with this patient during this visit. They were seen independently by the APC.
--- NOTE | 2023-04-04 12:40 | PC.NURSE ---
Wet prep swab obtained and sent to lab
--- NOTE | 2023-04-04 13:07 | PC.NURSE ---
Pt c/o vaginal pain and itching for two weeks. Denies discharge or dysuria.
[2023-04-04 13:33] VITALS: BP 131/78; PULSE 70; RESP 14; O2SAT 99
== END 2023-04-04 13:35 | disposition home or self-care (01) ==
PROVIDERS: Emergency Provider Student in an Organized Health Care Education/Training Program; Family Provider Student in an Organized Health Care Education/Training Program; PCP Student in an Organized Health Care Education/Training Program
DX: N89.8 Other specified noninflammatory disorders of vagina (principal)
CPT/HCPCS: 81003; 87210; 99282

== ENCOUNTER → 2023-04-22 17:01 | Outpatient (CLI) | payer MEDICARE, BC, SELFPAY ==
--- NOTE | 2023-04-22 | DI.MRI.S_ITS ---
PROCEDURE: MR HEAD/BRAIN WO CON INDICATIONS: COGNITIVE IMPAIRMENT TECHNIQUE: Non-contrast axial T1 spin echo, axial T2 fast spin echo, sagittal and axial FLAIR, coronal T2 fast spin echo, axial gradient echo, axial diffusion and ADC through the brain. COMPARISON: None. FINDINGS: Image quality: Excellent. CSF spaces: Ventricles appear symmetric in size and shape. Basal cisterns are patent. No extra-axial fluid collections. Brain: No intracranial bleeds or mass effects. There is cerebral volume loss for age. There are periventricular and deep white matter chronic small vessel ischemic changes, also involving the denise. Brainstem otherwise appears normal. Diffusion-weighted images show no acute ischemic insults. No chronic ischemic insults. Normal intravascular flow voids are present. Few foci of susceptibility artifact within the right parietal lobe and right occipital lobe, may represent sequela of prior microhemorrhage. Skull and face: Calvarial bone marrow is normal in signal. Bilateral lens replacements. Otherwise, the orbits are unremarkable. Sinuses: Sinuses and mastoids are clear. IMPRESSION: There is mild global volume loss and chronic microvascular ischemic change. No acute infarct or intracranial hemorrhage. Dictated by: Pato Encarnacion M.D. on 04/23/2023 at 8:31 Approved by: Pato Encarnacion M.D. on 04/23/2023 at 8:34
== END ==
PROVIDERS: Family Provider Student in an Organized Health Care Education/Training Program; PCP Student in an Organized Health Care Education/Training Program; Referring Provider Psychiatry & Neurology Neurology; Visit Provider Psychiatry & Neurology Neurology
DX: R41.89 Other symptoms and signs involving cognitive functions and awareness (principal)
CPT/HCPCS: 70551

== ENCOUNTER → 2023-05-28 07:09 | Outpatient (CLI) | payer MEDICARE, BC, SELFPAY ==
[2023-05-28 08:44] LABS: Hemoglobin A1C% w Est Avg Glu 5.7 % (4.0-6.0)
[2023-05-28 08:54] LABS: Glucose 102 mg/dL (80-110)
[2023-05-28 09:09] LABS: Appearance Urine UA CLEAR; Bilirubin Urine UA NEGATIVE (NEGATIVE); Color Urine UA YELLOW; Glucose Urine UA NEGATIVE (Negative); Ketones Urine UA NEGATIVE (NEGATIVE); Leukocyte Esterase Urine UA NEGATIVE (NEGATIVE); Nitrite Urine UA NEGATIVE (Negative); Occult Blood Urine UA NEGATIVE (Negative); Protein Urine UA NEGATIVE (Negative); Urobilinogen Urine UA 0.2 E.U./dL (0.2)
[2023-05-28 09:53] LABS: Bacteria Urine None Seen; Culture Indicated Urine Cult Not Indicated; RBC Urine 0-1/HPF (0-5/HPF); Squamous Epithelial Cell Urine None Seen (0-5/HPF); WBC Urine 0-1/HPF (0-5/HPF)
== END ==
PROVIDERS: Family Provider Student in an Organized Health Care Education/Training Program; PCP Pediatrics; Referring Provider Specialist; Visit Provider Specialist
DX: R81 Glycosuria (principal); R35.0 Frequency of micturition
CPT/HCPCS: 36415; 81001; 82947; 83036

== ENCOUNTER → 2023-07-16 14:22 | Outpatient (CLI) | payer MEDICARE, BC, SELFPAY ==
[2023-07-16 14:45] LABS: Add Manual Diff / Slide Review NO; Basophils Absolute Auto 200 /uL (0-100); Basophils Percent Auto 4.6 % (0-2); Eosinophils Absolute Auto 100 /uL (0-450); Eosinophils Percent Auto 1.1 % (2-4); Hematocrit 36.1 % (36-46); Hemoglobin 12.4 g/dL (12.0-16.0); Lymphocytes Absolute Auto 2200 /uL (1100-4500); Lymphocytes Percent Auto 41.3 % (25-40); Mean Corpuscular HGB Conc 34.4 % (30-36); Mean Corpuscular Hemoglobin 30.5 PG (26-34); Mean Corpuscular Volume 88.6 fL (80-100); Monocytes Absolute Auto 400 /uL (0-900); Monocytes Percent Auto 7.5 % (3-14); Neutrophils Absolute Auto 2500 /uL (1500-7000); Neutrophils Percent Auto 45.5 % (50-75); Platelet Count 250 X10^3/uL (150-400); Red Blood Cell Count 4.07 X10^6/uL (4.0-5.2); Red Cell Distribution Width 13.5 % (11.6-14.8); White Blood Cell Count 5.4 X10^3/uL (4.5-11.0)
[2023-07-16 14:55] LABS: Hemoglobin A1C% w Est Avg Glu 5.7 % (4.0-6.0)
[2023-07-16 15:06] LABS: BUN Creatinine Ratio 16.9 (6-22); Blood Urea Nitrogen 10 mg/dL (7-17); Calcium 9.7 mg/dL (8.4-10.2); Carbon Dioxide 28 mmol/L (22-32); Chloride 99 mmol/L (98-107); Estimated Glomerular Filt Rate > 60 mL/min (>60); Glucose 126 mg/dL (80-110); HEMOLYSIS < 15 (0-50); Potassium 4.3 mmol/L (3.4-5.1); Sodium 134 mmol/L (137-145)
== END ==
PROVIDERS: Family Provider Student in an Organized Health Care Education/Training Program; PCP Pediatrics; Referring Provider Orthopaedic Surgery Orthopaedic Surgery of the Spine; Visit Provider Orthopaedic Surgery Orthopaedic Surgery of the Spine
DX: Z01.818 Encounter for other preprocedural examination (principal); R73.9 Hyperglycemia, unspecified; Z01.82 Encounter for allergy testing
CPT/HCPCS: 36415; 80048; 83036; 85025; 93005

== ENCOUNTER → 2023-07-31 14:16 | Outpatient (CLI) | payer MEDICARE, BC, SELFPAY ==
--- NOTE | 2023-07-31 14:18 | DI.MG.S_ITS ---
BILATERAL DIGITAL DIAGNOSTIC MAMMOGRAM 3D/2D: 07/31/2023 CLINICAL: Baseline exam. Palpable left breast lump. No prior exams were available for comparison. Both breasts are heterogeneously dense, which may obscure small masses (category c / 51-75% glandular tissue). A BB marker was placed in the area of clinical concern in the left breast, and no mammographic abnormality is identified. No significant masses, calcifications, or other findings are seen in either breast. IMPRESSION: INCOMPLETE: NEEDS ADDITIONAL IMAGING EVALUATION No mammographic evidence of malignancy. Recommend further evaluation with targeted left breast ultrasound, which will immediately follow this exam. Based on the Tyrer Cuzick model (a risk assessment model) the patient's lifetime risk is 6.1% and her 10 year risk is 0.0%. According to the ACR, ACS, and NCCN guidelines, an annual breast MRI exam along with mammogram is recommended if the patient's lifetime risk is 20% or greater. This exam was interpreted at Station ID: [id number]. NOTE: For mammograms, a report in lay terms will be sent to the patient. Approximately 15% of breast malignancies will not be visualized mammographically. In the management of a palpable breast mass, a negative mammogram must not discourage biopsy of a clinically suspicious lesion. Electronically Signed By: Amaris Ledesma M.D., PH.D eb/:07/31/2023 15:34:04 ACR BI-RADS Category 0: Incomplete 3340F
--- NOTE | 2023-07-31 14:18 | DI.US.S_ITS ---
LIMITED ULTRASOUND OF LEFT BREAST: 07/31/2023 CLINICAL: Patient returns today to evaluate a focal asymmetry in the left breast. Comparison is made to exam dated: 07/31/2023 mammogram - [facility]. Ultrasound of the left breast 5 o'clock region was performed. There is a 0.9 cm x 0.3 cm x 0.6 cm oval hypoechoic skin based mass in the left breast at 5 o'clock,anterior depth 10 cm from the nipple. This finding corresponds to area of clinical palpable concern. IMPRESSION: BENIGN Left breast skin based finding at 5 o'clock coresponding to area of palpable concern. Finding likely represents dermal inclusion cyst and is benign. No mammographic or sonographic evidence of malignancy. A 1 year screening mammogram is recommended. Clinical follow-up is also recommended, and further management of palpable abnormalities or other focal signs or symptoms should be based on the results of clinical evaluation. If palpable abnormality or other concerning symptom persists or progresses, further clinical evaluation should be considered. Findings and recommendations were conveyed to the patient during today's evaluation. This exam was interpreted at Station ID: [id number]. Electronically Signed By: Amaris Ledesma M.D., PH.D eb/:07/31/2023 15:58:24 letter sent: Clinical Evaluation Ultrasound BI-RADS: 2 Benign
== END ==
PROVIDERS: Family Provider Student in an Organized Health Care Education/Training Program; PCP Pediatrics; Referring Provider Physician Assistant; Visit Provider Physician Assistant
DX: N60.82 Other benign mammary dysplasias of left breast (principal); N63.23 Unspecified lump in the left breast, lower outer quadrant; R92.2 Inconclusive mammogram
CPT/HCPCS: 76642; 77066; G0279

== ENCOUNTER → 2023-08-07 12:40 | Outpatient (CLI) | payer MEDICARE, BC, SELFPAY ==
[2023-08-07 15:20] LABS: Folate > 20.0 ng/mL (2.76-20.0); Vitamin B12 841 pg/mL (239-931)
== END ==
PROVIDERS: Family Provider Student in an Organized Health Care Education/Training Program; PCP Physician Assistant; Referring Provider Psychiatry & Neurology Neurology; Visit Provider Psychiatry & Neurology Neurology
DX: R41.89 Other symptoms and signs involving cognitive functions and awareness (principal)
CPT/HCPCS: 36415; 82607; 82746

== ENCOUNTER → 2023-09-22 09:44 | Outpatient (CLI) | payer MEDICARE, BC, SELFPAY ==
[2023-09-22 10:36] LABS: Influenza A - CEPHEID Flu A NEGATIVE (NEGATIVE); Influenza B - CEPHEID Flu B NEGATIVE (NEGATIVE); Respiratory Syncytial Virus Negative (Negative)
[2023-09-22 10:37] LABS: COVID-19 CEPHEID 4-PLEX PCR POSITIVE (Negative)
== END ==
PROVIDERS: Family Provider Student in an Organized Health Care Education/Training Program; PCP Student in an Organized Health Care Education/Training Program; Visit Provider Physician Assistant
DX: R05.1 Acute cough (principal)
CPT/HCPCS: 0241U

== ENCOUNTER → 2023-11-05 11:11 | Outpatient (CLI) | payer MEDICARE, BC, SELFPAY ==
[2023-11-05 12:08] LABS: Add Manual Diff / Slide Review NO; Basophils Absolute Auto 100 /uL (0-100); Basophils Percent Auto 2.4 % (0-2); Eosinophils Absolute Auto 100 /uL (0-450); Eosinophils Percent Auto 1.8 % (2-4); Hematocrit 30.9 % (36-46); Hemoglobin 10.6 g/dL (12.0-16.0); Lymphocytes Absolute Auto 1700 /uL (1100-4500); Lymphocytes Percent Auto 40.1 % (25-40); Mean Corpuscular HGB Conc 34.3 % (30-36); Mean Corpuscular Hemoglobin 30.8 PG (26-34); Mean Corpuscular Volume 89.7 fL (80-100); Monocytes Absolute Auto 300 /uL (0-900); Monocytes Percent Auto 7.9 % (3-14); Neutrophils Absolute Auto 2100 /uL (1500-7000); Neutrophils Percent Auto 47.8 % (50-75); Platelet Count 256 X10^3/uL (150-400); Red Blood Cell Count 3.45 X10^6/uL (4.0-5.2); Red Cell Distribution Width 13.7 % (11.6-14.8); White Blood Cell Count 4.3 X10^3/uL (4.5-11.0)
[2023-11-05 12:17] LABS: BUN Creatinine Ratio 16.7 (6-22); Blood Urea Nitrogen 9 mg/dL (7-17); Calcium 9.2 mg/dL (8.4-10.2); Carbon Dioxide 28 mmol/L (22-32); Chloride 100 mmol/L (98-107); Estimated Glomerular Filt Rate > 60 mL/min (>60); Glucose 96 mg/dL (80-110); HEMOLYSIS 15 (0-50); Potassium 4.5 mmol/L (3.4-5.1); Sodium 133 mmol/L (137-145)
== END ==
PROVIDERS: Family Provider Student in an Organized Health Care Education/Training Program; PCP Student in an Organized Health Care Education/Training Program; Referring Provider Orthopaedic Surgery Orthopaedic Surgery of the Spine; Visit Provider Orthopaedic Surgery Orthopaedic Surgery of the Spine
DX: Z01.812 Encounter for preprocedural laboratory examination (principal)
CPT/HCPCS: 36415; 80048; 85025

== ENCOUNTER 2023-12-07 11:43 | Inpatient (IN) | payer MEDICARE, BC, SELFPAY ==
[2023-12-03 08:38] VITALS: BMI 25.7
[2023-12-07] VITALS (18 sets, daily range): BP systolic 118–159; BP diastolic 60–90; PULSE 54–80; RESP 10–18; TEMP 35.8–36.6; O2SAT 94–100; BMI 26.9
[2023-12-07] MEDS: GABAPENTIN 300 MG CAPSULE PO ×2 (12:44→21:41)
[2023-12-07] MEDS: ACETAMINOPHEN 325 MG TABLET 975 MG PO (12:45)
[2023-12-07] MEDS: LACTATED RINGERS 1,000 ML 42 ML IV ×2 (12:46→15:59)
--- NOTE | 2023-12-07 13:26 | PM.PREOP ---
Pre-operative Note Interval Note History & Physical reviewed/Exam performed by Physician: Yes Changes to H&P: No
[2023-12-07] MEDS: CEFAZOLIN 2 GM/100 ML PREMIX 100 ML IV ×2 (14:42→21:39)
--- NOTE | 2023-12-07 14:55 | SUR.OPER ---
Prone on spine table, head in foam head support, padded chest and pelvic supports, gel pad at knees, lower legs supported by pillows; nipples, genitalia and toes free of pressure, arms secured on foam padded arm boards at <90 degrees abduction. Tape over blanket at thigh secured to table.
[2023-12-07] MEDS: BUPIVACAINE 0.25% (PF) 60 ML, EPINEPHrine 0.15 MG INJ (14:59)
[2023-12-07] MEDS: BUPIVACAINE LIPOSOME 266 MG/20 ML VIAL INJ (14:59)
--- NOTE | 2023-12-07 16:51 | DI.RAD.S_ITS ---
PROCEDURE: XR LUMBAR SPINE 2-3V INDICATIONS: L5-S1 TLIF TECHNIQUE: 2 intraoperative fluoroscopic views of the lumbar spine were acquired. COMPARISON: [facility], CR, XR LUMBAR SPINE 2-3V, 07/22/2021, 14:29. FINDINGS: Two intraoperative fluoroscopic images demonstrate L5-S1 posterior fixation with intervertebral disc spacer. IMPRESSION: Two intraoperative fluoroscopic images demonstrate L5-S1 fixation. Please see separately dictated operative report for full details. Approved by: Amaris Ledesma M.D. on 12/07/2023 at 17:13
--- NOTE | 2023-12-07 16:58 | PM.OP.1 ---
Operative Date/Time/Diagnoses Date of procedure: 12/07/23 Time of procedure: 13:00 Pre-op diagnosis: 1. History of L4-5 TLIF with retained hardware 2. L5-S1 spondylolisthesis 3. L5-S1 spinal stenosis Post-op diagnosis: same Procedure & Clinicians Procedure: 1. L5-S1 posterolateral and posterior interbody fusion 2. L5-S1 posterior interbody cage placement 3. L4-5 posterior non-segmental instrumentation removal 4. L4-5 revision laminectomy with exploration of fusion 5. L5-S1 posterior segmental instrumentation with pedicle screw placement 6. Carlisle of bone marrow from iliac crest through a separate incision 7. Utilization of microsurgical technique and operating microscope Same procedure as scheduled: Yes Indications: Patient has been having chronic back pain and worsening lumbar radiculopathy. Patient had prior L4-5 fusion more than 10 years ago and has been doing well until about a year ago. Patient has imaging showing severe foraminal stenosis at L5-S1 with anterolisthesis due to significant facet arthropathy with prior L4-5 fusion. Patient failed multiple conservative management with worsening pain weakness and numbness in her lower extremity. Patient has been having difficulty performing activity of daily living. After discussing risks benefits of treatment options, patient elected proceed with surgery. Surgeon: Jasvir Cannon Commercial Journeyman Electrician: Shima Chaves Click Yes if Unassisted: No Anesthesia Type: General Operative Notes Closure Type: primary Specimen(s): none sent Prosthetic devices, grafts, tissues, transplants, or devices: Globus revolve screws, Rise cage Estimated Blood Loss (mL): 50 Blood products transfused: none Procedure in detail: Patient was seen in the preoperative area. Risks and benefits of the surgery was discussed with the patient. Informed consent was obtained from the patient and placed in the chart. Surgical site was marked. Patient was taken to the operative room. General anesthesia was administered. Prophylactic antibiotic was given to the patient less than 30 min before the incision was made. Patient was placed into a prone position on the Gerardo table. Patient's back was then prepped and draped in the sterile fashion. Time-out was performed at this time. Using patient's previous scar incision was made over the L4-5 L5-S1 interval on the right side. Fascia was incised in line with skin incision. Patient's previously placed hardware over the L4-5 level was identified by dissecting down to the level the hardware using a Bovie and a Oneal. The locking caps which was removed using globus screwdriver. The locking cullen was then removed from the tulips of the pedicle screws using a Devorah. The pedicle screws were then removed using the screwdriver. The screws were found to have good purchase. The Globus and MARS retractors was then placed into the wound and docked onto the L4 lamina using C-arm guidance. Using microsurgical technique and operating microscope a laminectomy facetectomy was performed by removing the L5 lamina and the L5-S1 facet. The laminectomy and facetectomy was performed in order to decompress patient's cauda equina as well as the nerve roots exiting at the L5-S1 level. The disc space at L5-S1 level was identified next. And a total diskectomy was performed at L5-S1 level. The endplates were decorticated using a rasp and shaver. The total diskectomy and decortication was performed at L5-S1 level in order to to accomplish a L5-S1 fusion. The local bone from the laminectomy and facetectomy was saved for local bone grafting. After the total diskectomy and decortication was completed, DBM bone graft material was combined with local bone that was harvested earlier. At this time, a separate skin is incision was made over the iliac crest. A Jamshidi needle was inserted into the iliac crest through a separate skin incision. 5 cc of bone marrow aspiration was obtained through the separate skin incision using a Jamshidi needle from the iliac crest. The bone marrow aspiration was combined with local bone and the DBM bone grafting material. The bone grafting material was placed into the L5-S1 interbody space along with a expandable cage. The cage was expanded to its maximum height using the torque limiting screwdriver. At this time a mirror image incision was made on the left side. The fascia was incised in line with the skin incision. Patient's previously placed hardware on the right side was then removed in the same fashion as it was on the left side. The hardware was also found to have good purchase. The fusion mass on the right side was exposed by performing a right-sided hemilaminectomy at L4-5 level. The hemilaminectomy was performed using the Kerrison rongeur to undercut the lamina at L4-5 as well removing additional epidural scar tissue for purpose of decompressing the epidural space. The fusion mass was explored and was found have solid fusion. Globus MARS retractor was inserted and docked onto the L5-S1 posterolateral gutter. Using the power drill, posterior-lateral decortication was performed at L5-S1 level until bleeding cortical bone was identified. The remaining bone grafting material was placed into the L5-S1 posterior lateral gutter he order to accomplish posterolateral fusion at the L5-S1 level. Using the double C-arm technique, pedicle screws were placed into the L5 and S1 pedicles bilaterally. This was done by placing the Jamshidi needle into the pedicles, then placing the guidewires over the Jamshidi needle, and finally placing the cannulated screws over the guidewires bilaterally. After the pedicle screws were placed, 2 titanium rods was locked into the heads of the pedicle screws using locking caps and torque limiting screwdriver. Bone wax was placed into the L4 pedicle where the previous screw holes were placed to eliminate bleeding from bilateral pedicles at L4 level. No visible blood was coming from the pedicles after the hardware was removed. After all the hardware was placed, and confirmed with AP and lateral C-arm imaging, the wound was then irrigated with sterile normal saline and packed with [place] gauze for 3 min to accomplish hemostasis. After the gauze was removed the deep fascia was closed with #1 Vicryl suture. The subcutaneous layer was closed with 2-0 Vicryl. The skin was closed with skin peace. Patient tolerated the procedure well. There were no complications. The Operation could not have been safely performed without compromising the technical result or length of the procedure, without the assistance of a skilled surgical supplies sterilizer. The surgical supplies sterilizer was medically necessary for proper positioning, retraction and manipulation of instruments, proper exposure, surgical preparation, and manipulation of tissue. Neuro monitoring was utilized during the entire procedure which was stable throughout the entire procedure without any complications. Complications: none Post-operative Condition: stable Disposition: PACU Plan for aftercare: Admit to inpatient hospital
[2023-12-07] MEDS: OXYCODONE IR 5 MG TABLET PO ×3 (17:30→21:39)
[2023-12-07] MEDS: hydrOXYzine 50 MG/ML INJ 25 MG IM (17:33)
[2023-12-07] MEDS: HYDROMORPHONE 1 MG INJ IV ×2 (17:54→18:01)
[2023-12-07] MEDS: DOCUSATE 100 MG CAPSULE PO (21:39)
[2023-12-07] MEDS: SENNOSIDES 8.6 MG TABLET 17.2 MG PO (21:39)
[2023-12-07] MEDS: ACETAMINOPHEN 325 MG TABLET 650 MG PO (21:40)
[2023-12-07] MEDS: LACTATED RINGERS 1,000 ML 100 ML IV (22:16)
[2023-12-08] VITALS: BP 150/68; PULSE 60; RESP 17; O2SAT 98
[2023-12-08 03:22] VITALS: BP 135/72; PULSE 60; RESP 17; O2SAT 100
[2023-12-08] MEDS: ACETAMINOPHEN 325 MG TABLET 650 MG PO ×2 (03:44→20:07)
[2023-12-08] MEDS: OXYCODONE IR 5 MG TABLET PO ×4 (03:45→17:53)
[2023-12-08] MEDS: CEFAZOLIN 2 GM/100 ML PREMIX 100 ML IV (04:37)
[2023-12-08 05:40] LABS: Hematocrit 30.8 % (36-46); Hemoglobin 10.6 g/dL (12.0-16.0)
[2023-12-08] MEDS: ALENDRONATE 70 MG TABLET PO (06:44)
[2023-12-08 08:00] VITALS: BP 124/62; TEMP 36.1
--- NOTE | 2023-12-08 09:00 | OT.IP.EVAL ---
Current Diagnoses Spinal stenosis, lumbosacral region (12/07/23) Arthrodesis status (12/07/23) Surgery Performed Operation Date: 12/07/23 13:30 Actual Procedures p L5-S1 TLIF, L5-S1 PSF, revision of L4-L5 hardware - Jasvir Cannon MD Past Medical History (Last Updated 12/03/23 @ 09:18 by Annel Schmidt, RN) Dementia Depression Facet arthropathy, lumbar Flexor hallucis longus tendonitis History of COVID-19 (2019) HTN (hypertension) Hyponatremia Internal hemorrhoids Lumbosacral radiculopathy Macular degeneration Osteoporosis Rash (11/2023) Snoring Spinal stenosis Surgical History (Last Updated 12/03/23 @ 09:18 by Annel Schmidt, RN) History of back surgery Hx of bilateral cataract extraction Hx of dilation and curettage Occupational Therapy Inpatient Evaluation/Re-Eval M1 PT/OT-IP Prior Functional Status Start: 12/08/23 09:51 Freq: NEEDED Status: Active Protocol: Document 12/08/23 09:51 [facility] (Rec: 12/08/23 10:09 [facility] [id number]) Medical Review Prior Functional Status Communication Independent Mobility and Gait Pt did not use a device to ambulate but her pain limited her distance per pt. Activities of Daily Living and IADL's Pt had pain during ADl and IADL needs. Prior Functional Level (Other details) Pt daughter to stay with her for 2 weeks and then her son to come and assist her. Social History Household Members none Living Arrangements Apartment/Condo Number of Floors (Floors) One Floor Number of Stairs To Enter/Railing? 1 platform step and then step to get into the house. Home Environment Standard Height Toilet,Walk in Shower,Tub/Shower Home Equipment Four Wheel Walker,Straight Cane,Shower Seat without Backrest,Hand Held Shower Additional Social History Comment Pt states has power recliner but not a lift chair to sleep in if needed. M2 OT-IP Current Condition Start: 12/08/23 09:51 Freq: Status: Active Protocol: Document 12/08/23 09:51 [facility] (Rec: 12/08/23 10:09 [facility] [id number]) Occupational Therapy Current Condition Current Condition Evaluation Date 12/08/23 Treatment Diagnosis S/P L5-S1 TLIF, L4-5 PSF Diagnosis Onset Date 12/07/23 Post Operative Precautions Lumbar Precautions Log Roll,No Twisting,Limit Bending,Lifting Restriction of 10 lbs,Gait Belt above Incisional Area M3 OT- IP Subjective and Pain Start: 12/08/23 09:51 Freq: Status: Active Protocol: Document 12/08/23 09:51 [facility] (Rec: 12/08/23 10:09 [facility] [id number]) OT- Subjective Occupational Therapy Visit Type Type Initial Evaluation Visit Start Time 09:00 Visit Stop Time 09:50 Occupational Therapy Visit Comments Patient Comments Pt wanting to get up to use the bathroom. Patient/Caregiver Goals TO go home. OT Pain Assessment Pain When Pain Assessed At Rest Pain Present Pain Present Pain Reported Location back Intensity 8 Scale Used Numeric (0 - 10) M4 OT- IP ADL's Start: 12/08/23 09:51 Freq: Status: Active Protocol: Document 12/08/23 09:51 [facility] (Rec: 12/08/23 10:09 [facility] [id number]) OT OPN-Eiuz-Cwqoris General Evaluation Self-Feeding Ability Independent OT ADL-Grooming General Evaluation Grooming Ability Standby Assistance Comments OT Grooming Comments While standing with FWW OT ADL-Oral Care General Eval Oral Care Ability Independent OT ADL-Dressing General Eval Lower Body Dressing Ability Maximum Assistance Areas Needing Assistance Socks Comments OT Dressing Comments Educated pt on use of LB dressing equipment for needs. Suggested pt items from [employer] as open today. OT ADL-Toileting Comments OT Toileting Comments Pt agrees best to wear pads at night and to call her daughter for assist. BSC would be safer to come to stand. Suggested standing to wipe and use of wet one to best follow her back precautions. OT ADL-Bathing Comments OT Bathing Comments Educated pt care for her dressing while showering to cover and tape the dressing to prevent from getting it wet. M5 OT- IP IADL's Start: 12/08/23 09:51 Freq: Status: Active Protocol: Document 12/08/23 09:51 [facility] (Rec: 12/08/23 10:09 [facility] [id number]) OT-Instrumental Activities of Daily Living Deficits IADL Deficits Identified Deficits Home Safety Awareness Awareness of Need for Assistance at Home Good Awareness Home Safety Comments Pt is a little groggy at this time and best to have at least supervision for her needs. Medication Management Medication Management Comments Best to have assist at this time. Money Management Money Management Comments Best to have assist. Meal Preparation Meal Preparation Caregiver Provides Assist Product Expert Product Expert Caregiver Provides Assist Driving Driving Concerns Identified Regarding Safety M6 OT- IP Functional Cognition Start: 12/08/23 09:51 Freq: Status: Active Protocol: Document 12/08/23 09:51 [facility] (Rec: 12/08/23 10:09 [facility] [id number]) Cognitive Factors Limiting Selfcare Function Cognitive Ability Level of Alertness Alert,Confusional State Patient Orientation Name,Place,Situation Attention Span Ability Capable of Focused Attention, Capable of Sustained Attention Ability to Follow Commands Able to Follow One Step Commands with Increased Time, Able to Follow One Step Commands with Repetition Safety Awareness Decreased Recall of Precautions,Decreased Ability to Apply Precautions, Underestimates Need for Assistance Cognitive Comments Cognitive Assessment Comments Pt is a bit impulsive and needing cues for safety awareness for FWW and to recall and incorporate her back precautions for ADl and mobility needs. VC to push up from surfaces versus grab the FWW to stand. OT- Vision and Hearing OT- Hearing Assessment OT- Hearing Assessment WFL OT- Vision Assessment Visual Acuity Glasses For Reading Visual Attentiveness WFL Occular Pursuits WFL M7 OT- IP Mobility and Balance Start: 12/08/23 09:51 Freq: Status: Active Protocol: Document 12/08/23 09:51 [facility] (Rec: 12/08/23 10:09 [facility] [id number]) OT- Bed Mobility Assessment Rolling Level of Assistance Standby Assistance Supine to Sit Supine to Sit Assist Standby Assistance Sit to Supine Sit to Supine Assist Standby Assistance Scooting Scooting to Edge of Bed Standby Assistance OT-Transfer Assessment Sit to and From Stand Sit to and from Stand Standby Assistance,Contact Guard Assistance Transfers Transfer Ability Standby Assistance,Contact Guard Assistance Technique Transfer Destination Bed,Chair,Toilet Transfer Technique Stand Step Pivot Devices Transfer Assistive Devices Gait Belt,Front Wheeled Walker Comments Mobility Comments CGA to SBA and cues for safety . OT- Balance Assessment Sitting Balance and Reactions Static Sitting Balance Ability Good Dynamic Sitting Balance Ability Good Standing Balance and Reactions Static Standing Balance Ability Good Dynamic Standing Balance Ability Fair M8 OT- IP Objective Assessments Start: 12/08/23 09:51 Freq: Status: Active Protocol: Document 12/08/23 09:51 [facility] (Rec: 12/08/23 10:09 [facility] [id number]) OT Gross Range of Motion Upper Extremity Range of Motion ROM Impairments WFL for needs. OT Strength Comments Strength Comments WFL for needs. OT-Muscle Tone Assessment Muscle Tone WNL Yes M9 OT- IP Assessment and Plan Start: 12/08/23 09:51 Freq: Status: Active Protocol: Document 12/08/23 09:51 [facility] (Rec: 12/08/23 10:09 [facility] [id number]) OT Summary Assessment and Plan Potential Rehabilitation Potential Excellent Analytic Complexity at Evaluation Low Summary OT Impairments Pain,Balance,Functional Mobility,Dressing,Toileting, Bathing,Toilet Transfers, Shower Transfers Progress Towards Goals Progressing Toward Goals Assessment Summary Pt low complexity and main barriers are pain, decreased safety awareness, and ability to recall and incorporate her back precaution at this time. Pt is groggy from the surgery and needing step by step instructions for needs at this time. Pt looking to go home with her daughter when medically stable. Pt on RA and at 93% and 84% after activity and needing time and deep breaths to get to 92%. Pt able to use the spirometer with education and then at 94% on RA, nursing aware that pt was feeling woozy. Goals Grooming Goal Independent Dressing Goal Independent,Long Handled Shoe Horn,Inspector Mechanical,Sock Aid Toileting Goal Independent Bathing Goal Standby Assistance Toilet Transfer Goal Independent Shower Transfer Goal Standby Assistance Patient/Caregiver Education Goal Caregiver Independent Assisting Patient Days to Meet Goals 5 Frequency of Treatment Frequency Of Treatment Once a Day Treatment Plan OT Treatment Plan ADL Training,Functional Mobility,Patient/Family Education,Discharge Planning Discharge Recommendations OT Discharge Recommendations Home with 27/04 Assist Available Home Equipment Needs LB dressing equipment, BSC Transportation Needs at Discharge Private Vehicle
[2023-12-08] MEDS: GABAPENTIN 300 MG CAPSULE PO ×2 (09:37→20:07)
[2023-12-08] MEDS: lisinopriL 20 MG TABLET PO (09:37)
[2023-12-08] MEDS: DOCUSATE 100 MG CAPSULE PO ×2 (09:37→20:07)
--- NOTE | 2023-12-08 09:55 | PT.IIE ---
Current Diagnoses Spinal stenosis, lumbosacral region (12/07/23) Arthrodesis status (12/07/23) Surgery Performed Operation Date: 12/07/23 13:30 Actual Procedures p L5-S1 TLIF, L5-S1 PSF, revision of L4-L5 hardware - Jasvir Cannon MD Surgical History (Last Updated 12/03/23 @ 09:18 by Annel Schmidt, RN) History of back surgery Hx of bilateral cataract extraction Hx of dilation and curettage Medical History (Last Updated 12/03/23 @ 09:18 by Annel Schmidt RN) Dementia Depression Facet arthropathy, lumbar Flexor hallucis longus tendonitis History of COVID-19 (2019) HTN (hypertension) Hyponatremia Internal hemorrhoids Lumbosacral radiculopathy Macular degeneration Osteoporosis Rash (11/2023) Snoring Spinal stenosis Physical Therapy Inpatient Evaluation/Re-Eval M1 PT/OT-IP Prior Functional Status Start: 12/08/23 11:18 Freq: NEEDED Status: Active Protocol: Document 12/08/23 09:55 [facility] (Rec: 12/08/23 11:34 AB [id number]) Medical Review Prior Functional Status Medical History Reviewed Yes Communication able to make needsknown Mobility and Gait pt stated that she was independent with all mobilities and ambulation without AD Activities of Daily Living and IADL's per OT note: Pt had pain during ADl and IADL needs. Social History Household Members none Living Arrangements Apartment/Condo Number of Floors (Floors) One Floor Number of Stairs To Enter/Railing? 2 steps without rails to enter the house Home Environment Standard Height Toilet,Walk in Shower,Tub/Shower Home Equipment Straight Cane,Shower Seat without Backrest,Hand Held Shower Additional Social History Comment pt's daughter who lives in [place] will be staying with pt only for a few days (until thursday) and pt's son will be coming thursday to stay with pt for a few days. pt has a caregiver that comes in [facility] 930- ~ 3-4pm to assist her with house chores, medications and appointments pt has a power recliner at home M2 PT-IP Current Condition Start: 12/08/23 11:18 Freq: NEEDED Status: Active Protocol: Document 12/08/23 09:55 [facility] (Rec: 12/08/23 11:34 [id number]) Physical Therapy Current Condition Current Condition Evaluation Date 12/08/23 Treatment Diagnosis s/p L4-5 instrum; s/p L5S1 TLIF; difficulty in walking Onset Date 12/07/23 M3 PT-IP Subjective Start: 12/08/23 11:18 Freq: NEEDED Status: Active Protocol: Document 12/08/23 09:55 [facility] (Rec: 12/08/23 11:34 [id number]) Subjective Physical Therapy Visit Type Type Initial Evaluation Visit Start Time 09:55 Visit Stop Time 10:40 Number of FIRE PROTECTION ENGINEER Visits 0 Physical Therapy Visit Comments Patient Comments agreeable to do PT Therapy Pain Assessment Pain When Pain Assessed At Rest Pain Present Pain Present Pain Reported Location back Intensity 8 Scale Used Numeric (0 - 10) Pain Management Techniques Distraction,Modification of Treatment,Re-positioning, Timing of Activity with Medications M4 PT-IP Mobility and Gait Start: 12/08/23 11:18 Freq: NEEDED Status: Active Protocol: Document 12/08/23 09:55 [facility] (Rec: 12/08/23 11:34 [id number]) PT-Bed Mobility Assessment Rolling Type of Rolling Log Rolling Level of Assist Standby Assistance,Minimal Assistance Supine to Sit Supine to Sit Standby Assistance,Minimal Assistance Sit to Supine Sit to Supine Standby Assistance,Minimal Assistance PT-Transfer Assessment Sit to and From Stand Sit to and from Stand Contact Guard Assistance,1 Person Assistance,Use of Upper Extremities Equipment Transfer Assistive Device Gait Belt,Front Wheeled Walker Orthotic/Prosthetic Devices or Brace: No Transfers Transfer Destination Bed,Chair Transfer Technique ambulated Transfer Ability Level of Assist Contact Guard Assistance,1 Person Assistance,Use of Upper Extremities Comments Mobility Comments pt sitting on the chair. daughter in room with pt. daughter stated that pt will not have anybody at home to assist her and plans to go to rehab. obtained PLOF and home set up from pt and daughter. reviewed post-op folder contents. educated on back precautions and log roll bed mobility. BP in sittin/ 58 O2 sat: 100 WI: 86 pt completed sit to stand CGA and ambulated in room ~ 40 ft CGA using FWW. pt sat on EOB. completed sit<>supine min A and max cues. pt completed sit to stand from EOB ambulated in room again ~ 30 ft. sat on EOB. completed log roll bed mobility sit<>supine SBA x 2 attempts. requires initial max cues but able to complete without cues on 2nd attempt. pt completed sit o stand from EOB CGA and step transfer to chair using FWW CGA. positioned pt on the chair but pt stated that she has to use the toilet. completed sit to stand CGA and ambulated to the toilet using FWW CGA and cues for safety. [facility] came and took over care of pt. Gait Assessment Gait Gait Assistance Required: Contact Guard Assist Distance (Feet) 40 Able to Maintain Weight Bearing Status Yes During Gait Assistive Devices Assistive Device Gait Belt,Front Wheeled Walker Orthotic/Prosthetic Devices or Brace: No Gait Deviations General Gait Pattern Decreased Stride Length, Decreased Feet Clearance Factors Limiting Gait Function Factors Limiting Gait Function Decreased Activity Tolerance, Decreased Strength,Difficulty Following Directions,Limited Range of Motion,Pain,Poor Balance,Poor Safety Awareness PT-Balance Assessment Sitting Balance and Reactions Static Sitting Balance Ability Normal Dynamic Sitting Balance Ability Good Standing Balance and Reactions Static Standing Balance Ability Fair Dynamic Standing Balance Ability Fair Device Used FWW M5 PT-IP Objective Assessments Start: 12/08/23 11:18 Freq: NEEDED Status: Active Protocol: Document 12/08/23 09:55 [facility] (Rec: 12/08/23 11:34 [id number]) Orientation Orientation/Cognition Level of Alertness Alert Orientation Name,Place,Situation Language Function Ability No Deficits Noted Safety Awareness Decreased Safety Awareness Memory Description Short Term Impaired Gross Range of Motion Lower Extremity ROM Assessment Within Functional Limits Strength Lower Extremity Strength Assessment Within Functional Limits Muscle Tone Muscle Tone WNL Yes M6 PT-IP Treatment Start: 12/08/23 11:18 Freq: NEEDED Status: Active Protocol: Document 12/08/23 09:55 [facility] (Rec: 12/08/23 11:34 [facility] [id number]) Physical Therapy Treatment Education Education Provided Precautions,Weight Bearing Status,Post-Op Packet,Safety M7 PT-IP Assessment and Plan Start: 12/08/23 11:18 Freq: NEEDED Status: Active Protocol: Document 12/08/23 09:55 [facility] (Rec: 12/08/23 11:34 [id number]) PT Summary Assessment and Plan Potential Rehabilitation Potential Fair Status of Condition at Evaluation Stable Summary Impairments Pain,ROM,Strength,Balance, Coordination,Sensation,Tone, Cognition,Bed Mobility, Transfers,Gait,Activity Tolerance Assessment Summary pt is a 78 y/o F s/p L5-S1 TLIF and L4-5 instrumentation placement POD 1. pt requiring CGA with transfers and ambulation using FWW and cues for precautions and safety. pt stated that she has mild dementia and has difficulty remembering. pt lives alone. family will initially stay with pt but will not be able to stay for longer periods. will continue to assess progress Goals Bed Mobility Goal Independent Transfer Goal Independent,Front Wheeled Walker Gait Goal Independent,Front Wheel Walker Gait Distance 300 Other Goals up/down 2 steps using SPC SBA Days to Meet Goals 10 Frequency of Treatment Frequency Of Treatment Twice a Day Treatment Plan Physical Therapy Treatment Plan Bed Mobility Training,Transfer Training,Gait Training, Therapeutic Exercise,Balance Retraining,Post Op Education, Discharge Planning,Hot or Cold Pack,Neuromuscular Re-ed, Coordination Retraining,Manual Therapy Precautions Lumbar Precautions Log Roll,No Twisting,Limit Bending,Lifting Restriction of 10 lbs,Gait Belt above Incisional Area Recommendations To Nursing Amount of Assist Needed 1 Person Assist Discharge Recommendations PT Discharge Recommendations Home vs SNF Equipment Needed for Home Before FWW Discharge Transportation Needs at Discharge Private Vehicle,Wheelchair/ Cabulance
--- NOTE | 2023-12-08 12:38 | PC.NURSE ---
Dressing to back is cdi, patient is getting oxycodone for discomfort every 3 hours. She states that this does help some. Up with one person assist and walker. Dressing to lower back is cdi. Patient is resting comfortably.
--- NOTE | 2023-12-08 13:50 | PT.IPTN ---
Current Diagnoses Spinal stenosis, lumbosacral region (12/07/23) Arthrodesis status (12/07/23) Surgery Performed Operation Date: 12/07/23 13:30 Actual Procedures p L5-S1 TLIF, L5-S1 PSF, revision of L4-L5 hardware - Jasvir Cannon MD Physical Therapy Treatment Note M2 PT-IP Current Condition Start: 12/08/23 11:18 Freq: NEEDED Status: Active Protocol: Document 12/08/23 09:55 [facility] (Rec: 12/08/23 11:34 AB [id number]) Physical Therapy Current Condition Current Condition Evaluation Date 12/08/23 Treatment Diagnosis s/p L4-5 instrum; s/p L5S1 TLIF; difficulty in walking Onset Date 12/07/23 M3 PT-IP Subjective Start: 12/08/23 11:18 Freq: NEEDED Status: Active Protocol: Document 12/08/23 14:29 TS (Rec: 12/08/23 14:45 TS [id number]) Subjective Physical Therapy Visit Type Type Treatment Note Visit Start Time 13:50 Visit Stop Time 14:25 Number of PRINTER SLOTTER HELPER Visits 1 Physical Therapy Visit Comments Patient Comments Pt found resting in bed, reports pain is 9/10 and has some shakiness she contributes to the pain. Therapy Pain Assessment Pain When Pain Assessed At Rest Pain Present Pain Present Pain Reported Location back Intensity 9 Scale Used Numeric (0 - 10) Description With Movement Pain Management Techniques Distraction,Modification of Treatment,Re-positioning, Timing of Activity with Medications M4 PT-IP Mobility and Gait Start: 12/08/23 11:18 Freq: NEEDED Status: Active Protocol: Document 12/08/23 14:29 TS (Rec: 12/08/23 14:45 TS [id number]) PT-Bed Mobility Assessment Rolling Type of Rolling Log Rolling Level of Assist Contact Guard Assistance,1 Person Assistance Supine to Sit Supine to Sit Contact Guard Assistance,1 Person Assistance Sit to Supine Sit to Supine Standby Assistance Scooting Scooting to Edge of Bed Standby Assistance PT-Transfer Assessment Sit to and From Stand Sit to and from Stand Contact Guard Assistance,1 Person Assistance,Use of Upper Extremities Equipment Transfer Assistive Device Gait Belt,Front Wheeled Walker Orthotic/Prosthetic Devices or Brace: No Comments Mobility Comments Pt recalled 2/3 spinal precautions prior to mobility( no lifting). Logroll to L side CGA with cues for sequencing and handrail assist. Supine to sit CGA for uprighting trunk, demonstrates good carryover. STS from bed CGA with no AD, pt cued for use of FWW and safety. She ambulated to toilet, performed own pericare . She ambulated in hallway SBA ~150' with FWW. She performed steps x2 with FWW on platform step and x2 with SPC CGA. Sit to supine into bed SBA, pt cued self for logroll. pt was left in be, all needs met. Gait Assessment Gait Gait Assistance Required: Standby Assistance Distance (Feet) 150 Able to Maintain Weight Bearing Status Yes During Gait Assistive Devices Assistive Device Gait Belt,Front Wheeled Walker Orthotic/Prosthetic Devices or Brace: No Gait Deviations General Gait Pattern Decreased Stride Length, Decreased Feet Clearance Factors Limiting Gait Function Factors Limiting Gait Function Decreased Activity Tolerance, Decreased Strength,Difficulty Following Directions,Limited Range of Motion,Pain,Poor Balance,Poor Safety Awareness Stair Climbing Assessment Evaluation Level of Assist On Stairs Contact Guard Assistance,1 Person Assistance Devices Stair Climbing Assistive Devices Straight Cane Technique/Endurance Stair Climbing Direction Ascend and Descend Stair Climbing Technique Step to Step Number of Steps Climbed 4 Comments Stair Climbing Comments See mobility comments PT-Balance Assessment Sitting Balance and Reactions Static Sitting Balance Ability Normal Dynamic Sitting Balance Ability Good Standing Balance and Reactions Static Standing Balance Ability Fair Dynamic Standing Balance Ability Fair Device Used FWW M5 PT-IP Objective Assessments Start: 12/08/23 11:18 Freq: NEEDED Status: Active Protocol: Document 12/08/23 09:55 AB (Rec: 12/08/23 11:34 AB [id number]) Orientation Orientation/Cognition Level of Alertness Alert Orientation Name,Place,Situation Language Function Ability No Deficits Noted Safety Awareness Decreased Safety Awareness Memory Description Short Term Impaired Gross Range of Motion Lower Extremity ROM Assessment Within Functional Limits Strength Lower Extremity Strength Assessment Within Functional Limits Muscle Tone Muscle Tone WNL Yes M6 PT-IP Treatment Start: 12/08/23 11:18 Freq: NEEDED Status: Active Protocol: Document 12/08/23 14:29 TS (Rec: 12/08/23 14:45 TS [id number]) Physical Therapy Treatment Education Education Provided Precautions,Weight Bearing Status,Post-Op Packet,Safety M7 PT-IP Assessment and Plan Start: 12/08/23 11:18 Freq: NEEDED Status: Active Protocol: Document 12/08/23 14:29 TS (Rec: 12/08/23 14:45 TS [id number]) PT Summary Assessment and Plan Potential Rehabilitation Potential Good Summary Impairments Pain,ROM,Strength,Balance, Coordination,Sensation,Tone, Cognition,Bed Mobility, Transfers,Gait,Activity Tolerance Progress Towards Goals Progressing Toward Goals Assessment Summary Linda is progressing well with her mobility. She is CGA/SBA for all bed mobility, requires some cueing for logroll sequencing, demonstrates good carryover at end of session. She progressed her gait to ~ 150'SBA with use of FWW, does require cues for safety, pt tends to try and not use FWW, will attempt to furniture surf in room. She progressed to steps x2 with SPC and x2 with FWW CGA, pt has no buckling or LOB. PT is recommending Home vs SNF. Goals Bed Mobility Goal Independent Transfer Goal Independent,Front Wheeled Walker Gait Goal Independent,Front Wheel Walker Gait Distance 300 Other Goals up/down 2 steps using SPC SBA Days to Meet Goals 10 Frequency of Treatment Frequency Of Treatment Twice a Day Treatment Plan Physical Therapy Treatment Plan Bed Mobility Training,Transfer Training,Gait Training, Therapeutic Exercise,Balance Retraining,Post Op Education, Discharge Planning,Hot or Cold Pack,Neuromuscular Re-ed, Coordination Retraining,Manual Therapy Precautions Lumbar Precautions Log Roll,No Twisting,Limit Bending,Lifting Restriction of 10 lbs,Gait Belt above Incisional Area Recommendations To Nursing Amount of Assist Needed 1 Person Assist Discharge Recommendations PT Discharge Recommendations Home vs SNF Equipment Needed for Home Before FWW Discharge Transportation Needs at Discharge Private Vehicle,Wheelchair/ Cabulance
--- NOTE | 2023-12-08 14:32 | P.PN_ITS ---
Subjective Subjective Date Patient Seen: 12/08/23 Time Patient Seen: 07:00 Interval history: Linda is found sitting comfortably in chair. Denies any nausea vomiting fever or chills. Denies any new numbness or pain down her legs. Pain is controlled with oral medications. She was able to void on her own last night. Exam Vital Signs (past 8 hours): - 12/08/23 08:00 Temperature 97 F L Blood Pressure 124/62 Oxygen Delivery Method Simple Mask Oxygen Flow Rate 0 Narrative Exam Narrative: Dressing is intact and clean and dry. Sensation in the lower extremities intact bilaterally. No increased pain compression along the posterior thigh or calf bilaterally. Able to dorsiflex and plantar flex against resistance bilaterally at both ankles. Resp Effort & Inspection: normal respiratory effort and able to speak in complete sentences Objective Labs 12/08/23 05:00 Labs: Laboratory Results - last 24 hr 12/08/23 05:00 Hgb 10.6 L Hct 30.8 L PFSH Medical History (Updated 12/03/23 @ 09:18 by Annel Schmidt RN) History of COVID-19 (2019) Depression Spinal stenosis HTN (hypertension) Macular degeneration Dementia Rash (11/2023) Facet arthropathy, lumbar Lumbosacral radiculopathy Snoring Flexor hallucis longus tendonitis Hyponatremia Osteoporosis Internal hemorrhoids Surgical History (Updated 12/03/23 @ 09:18 by Annel Schmidt RN) Hx of bilateral cataract extraction Hx of dilation and curettage History of back surgery Social History household members: none Smoking Status: Never smoker alcohol intake: current Assessment & Plan Post-op Postoperative Procedures: Procedures Operation Date: 12/07/23 13:30 Actual Procedure Side Surgeon p L5-S1 TLIF, L5-S1 PSF, revision of L4-L5 hardware Jasvir Cannon MD Postoperative day: 1 Postoperative status: doing well Postoperative plan: routine post-op care Postoperative plan narrative: 1) Patient plans on being discharged into a SNF as she does not have support at home. Arrangements are currently being made to make these accommodations. 2) Multi-modal pain control 3) Work with inpatient PT. 4) No lifting, twisting, deep bending, prolonged sitting. 5) keep dressing clean and dry, no soaking the incision site and posterior times, no topical ointments or creams to the incision site. 6) Follow up in 2 weeks at [facility] for as scheduled for postop appointment, wound check, staple removal. Time Spent With Patient Time with patient: less than 15 minutes Quality VTE Deep Vein Thrombosis/Pulmonary Embolism Present on Admission: No
[2023-12-08] MEDS: DONEPEZIL 5 MG TABLET 10 MG PO (17:54)
[2023-12-08] MEDS: HYDROMORPHONE 0.5 MG INJ IV (20:07)
[2023-12-08] MEDS: SENNOSIDES 8.6 MG TABLET 17.2 MG PO (20:07)
[2023-12-08 20:19] VITALS: BP 161/68; PULSE 95; RESP 22; TEMP 38.2; O2SAT 96
[2023-12-09 02:25] VITALS: BP 147/66; PULSE 81; RESP 20; TEMP 36.8; O2SAT 98
--- NOTE | 2023-12-09 07:40 | PM.PNPO.1 ---
Subjective Subjective Date Patient Seen: 12/09/23 Time Patient Seen: 07:40 Interval history: Linda is sitting in a chair, says 'everything hurts.' She is having pain radiating down both legs, in addition to back and hip pain. She is receiving APAP PRN, oxycodone, and hydromorphone IV. She has been evaluated by PT, who is currently recommending home w/ assitance vs SNF. Linda currently has her daughter available for support as well as a caregiver who comes to her house 3 times/wk. She says she was not taking pain medication prior to surgery, and her caregiver was insistent on holding NSAIDs prior to surgery. Eating and voiding without difficulty. Exam Vital Signs (past 8 hours): - 12/09/23 02:25 Temperature 98.2 F Pulse Rate 81 Respiratory Rate 20 Blood Pressure 147/66 H Pulse Oximetry 98 Oxygen Flow Rate 0 Oxygen Delivery Method Simple Mask Oxygen Flow Rate 0 Narrative Exam Narrative: 5/5 strength in hip flexors, quadriceps, hamstrings, DF, PF, EHL bilaterally. Sensation to light touch intact in BLE, calves soft and compressible. Dressings placed intraoperatively are CDI. Objective Labs 12/08/23 05:00 [facility] Medical History (Updated 12/03/23 @ 09:18 by Annel Schmidt RN) History of COVID-19 (2019) Depression Spinal stenosis HTN (hypertension) Macular degeneration Dementia Rash (11/2023) Facet arthropathy, lumbar Lumbosacral radiculopathy Snoring Flexor hallucis longus tendonitis Hyponatremia Osteoporosis Internal hemorrhoids Surgical History (Updated 12/09/23 @ 08:03 by Shima Chaves PA-C) Hx of bilateral cataract extraction Hx of dilation and curettage History of back surgery Social History household members: none Smoking Status: Never smoker alcohol intake: current Assessment & Plan Post-op Assessment and plan (1) S/P lumbar fusion: Assessment and Plan narrative: Opioid naive, elderly pt w/ poor pain control and radicular symptoms. Will start IV dexamethasone, which I reassured her should help alleviate her leg pain. If this is effective, will send home on a medrol irving, but she should continue to avoid NSAIDs d/t fusion and poor bone quality; currently takes alendronate. Encouraged participation w/ PT, discussed that she may need to go to rehab for a brief period if she is not ready for d/c home tomorrow. Postoperative Procedures: Procedures Operation Date: 12/07/23 13:30 Actual Procedure Side Surgeon p L5-S1 TLIF, L5-S1 PSF, revision of L4-L5 hardware Jasvir Cannon MD Postoperative day: 2 Quality VTE Deep Vein Thrombosis/Pulmonary Embolism Present on Admission: No
[2023-12-09] MEDS: OXYCODONE IR 5 MG TABLET PO ×4 (07:56→20:24)
[2023-12-09] MEDS: ACETAMINOPHEN 325 MG TABLET 650 MG PO ×3 (07:57→20:36)
[2023-12-09] MEDS: GABAPENTIN 300 MG CAPSULE PO ×2 (08:03→20:24)
[2023-12-09] MEDS: DOCUSATE 100 MG CAPSULE PO ×2 (08:03→20:24)
--- NOTE | 2023-12-09 08:03 | CM.DANOTE ---
Initial DCP Assessment Visit Note Reviewed EMR and team rounds for pt's medical status and updates. Pt was found to be sleeping when this PRODUCTION ILLUSTRATOR went to the room to introduce self and role. Called pt's dtr, Yanet, to discuss preferences for SNF facility for d/c. She states that the family would like a referral sent to [facility]. Called [facility] and initiated the referral. Pt will remain here 3-midnights in order to be eligible for placement.\ Payor: Medicare Attending: Dr. Cannon Pt is a 78 year-old F admitted post TLIF surgery on 12/06. She had a PMH of worsening back/leg pain that was limiting her mobility, as well as standing and sitting due to to pain. She tried conservative methods such as pain injections and exercise modification with no lasting benefit. Plan will be for her to go to SNF rehab due to no home cg available. Her dtr Yanet and her son will plan to assist her at home once she discharges from rehab. DCP will continue to monitor and assist with this discharge care transition. Discharge Planning/Care Management CM Discharge Assessment Start: 12/08/23 15:45 Freq: Status: Active Protocol: Document 12/08/23 15:46 DPL (Rec: 12/08/23 16:05 DPL [id number]) Discharge Planning Assessment Assigned It Network Architect MERCEDEZ Crain Advance Directives? No History Provided By Family Member,Medical Record Expected Length of Stay 3 Has Patient been admitted in last 30 No days? Prior Living Arrangements Apartment/Condo Household Members none Type of transporation used prior to Drives own vehicle admit Independent with ADL's Yes Is patient alert and oriented? Yes Caregiver for Another No Comment N/A Patient/Family Preference [facility] Facility Barriers to Discharge No Discharge Plan [facility] Facility Transportation Arrangement Facility Referrals Initiated [facility] If patient plan is SNF: Has PASSR been No completed? Medicare Choice List Provided Yes Medicare choice list reviewed on family electronic tablet with SNF/HH Preference SoundBulu Box Whiteboard Updated in Patient Room with Yes name and ext. # of It Network Architect Review Status In Process Please Provide Date Initial DC 12/08/23 Assessment Was Performed Pre-Anesthesia Assessment Start: 12/03/23 08:38 Freq: Status: Active Protocol: Document 12/03/23 08:38 CAB (Rec: 12/03/23 09:29 CAB [id number]) Pre-Anesthesia Assessment PAC Comment Pt has increased memory changes, would be beneficial for daughter to accompany pt during admit process Patient Information Reviewed Via Phone Assessment Assessment Completed With Patient Primary Care Provider Ellie Nix Seen Specialist in Last 12 Months Yes Specialist Seen Orthopedist,Sleep specialist, Other Comment Neurology Primary Language Setswana Glory Hole Tender Required No Height 160.02 cm Weight 65.771 kg Body Mass Index (BMI) 25.7 Hearing Ability Normal Visual Assist Glasses Dentition Type Teeth, Natural Present Barriers to Learning Memory Hx Anesthesia Reactions No Hx Family Anesthesia Reaction No Hx Malignant Hyperthermia No Hx Blood Transfusions No Anesthesia Review Requested No Glazier Artist No alcohol intake current alcohol intake frequency holidays/special occasions only Smoking Status Never smoker Substance Use Type does not use Pain Present Pain Reported Musculoskeletal Symptoms Abnormal Gait,Back Pain, Difficulty Walking,Joint Pain, Radiating Pain into Limb History of Falling (Recent or History of No ) Patient is completely paralyzed or No completely immobile Mental Status Oriented to own ability Is patient on oxygen? No Does patient have CROWLEY/SOB No Hx Sleep Apnea No Currently Taking a Beta Ritchie No Hx Chest Pain No Hx SOB No Hx Syncope or Dizziness No Anti-Coagulant Therapy No Has a Industrial Yard Brake Coupler No Cardiac Testing No Hx Pacemaker/ICD No Pacemaker Rep Required? No Cardiac Clearance Received Not Applicable Diet Type At Home Regular Dysphagia No Gastrointestinal Symptoms Constipation Bladder Pattern Frequency,Nocturia Urinary Catheter Present No Hx Urinary Self Catheterization No Diabetes No HgbA1C 5.7 Date 07/16/23 Patient No Lactating No Hx Drug Resistant Organism No Presence of External or Internal Medical Yes: Lumbar hardware Devices Received a COVID vaccine? Yes Received all doses? Yes Marital Status / Lives With none Current Living Arrangements Apartment/Condo Number of Floors (Floors) One Floor Support System Caregiver,Child/Children Does the Patient Have Assistance After Yes: Son & daughter will stay Surgery w/pt to assist @ DC Patient Discharge Plan Description Return Home Comment Pt advised 2 night length of stay per surgeon Feels Safe in Current Environment Yes Been Physically Hurt or Threatened By a No Person in Current Environment Do you have thoughts of harming yourself None or others? Are you currently considering suicide? No Do you have a plan to hurt yourself or No Plan others? Do You Have Any Spiritual Beliefs That No May Affect Your HC Choices? Do You Have Any Cultural Practices That No May Affect Your HC Choices? Comment Scientology Who Can We Speak to About Patient's Care Family, friends Identifying Code for Release of Patient Declines to issue Information Health Care Proxy/Next of Kin Ana María (son) Yanet ( daughter) Health Care Proxy Phone Number Ana María: [phone] Yanet: [phone] Emergency Contact Name Ana María (son) Yanet ( daughter) Advance Directives? No Power of City Maintenance Manager Yes Power of City Maintenance Manager Phone Number Yanet (daughter) Comment [phone] PAC Instructions Durable medical equipment, Medications to take/avoid, Nasal antibiotic,No ETOH/ petroleum product on skin DOS, NPO,Post-op transportation,Pre -surgical wash,Sensory aids, Sturdy shoes/comfortable clothes,Do not bring valuables and remove jewelry
[2023-12-09] MEDS: DEXAMETHASONE 4 MG/ML VIAL IV ×3 (08:04→17:17)
[2023-12-09 08:08] VITALS: BP 153/60; PULSE 68
[2023-12-09] MEDS: lisinopriL 20 MG TABLET PO (08:08)
--- NOTE | 2023-12-09 10:12 | PT.IPTN ---
Current Diagnoses Spinal stenosis, lumbosacral region (12/07/23) Arthrodesis status (12/07/23) Surgery Performed Operation Date: 12/07/23 13:30 Actual Procedures p L5-S1 TLIF, L5-S1 PSF, revision of L4-L5 hardware - Jasvir Cannon MD Physical Therapy Treatment Note M2 PT-IP Current Condition Start: 12/08/23 11:18 Freq: NEEDED Status: Active Protocol: Document 12/08/23 09:55 AB (Rec: 12/08/23 11:34 AB [id number]) Physical Therapy Current Condition Current Condition Evaluation Date 12/08/23 Treatment Diagnosis s/p L4-5 instrum; s/p L5S1 TLIF; difficulty in walking Onset Date 12/07/23 M3 PT-IP Subjective Start: 12/08/23 11:18 Freq: NEEDED Status: Active Protocol: Document 12/09/23 10:35 TS (Rec: 12/09/23 10:48 TS [id number]) Subjective Physical Therapy Visit Type Type Treatment Note Visit Start Time 10:12 Visit Stop Time 10:35 Notes Daughter present Number of ELECTRIC TRUCK OPERATOR Visits 2 Physical Therapy Visit Comments Patient Comments Pt found resting in bed, is agreeable to PT. Therapy Pain Assessment Pain When Pain Assessed At Rest Pain Present Pain Present Pain Reported M4 PT-IP Mobility and Gait Start: 12/08/23 11:18 Freq: NEEDED Status: Active Protocol: Document 12/09/23 10:35 TS (Rec: 12/09/23 10:48 TS [id number]) PT-Bed Mobility Assessment Rolling Type of Rolling Log Rolling Level of Assist Standby Assistance Supine to Sit Supine to Sit Standby Assistance PT-Transfer Assessment Sit to and From Stand Sit to and from Stand Standby Assistance,Use of Upper Extremities Equipment Transfer Assistive Device Gait Belt,Front Wheeled Walker Orthotic/Prosthetic Devices or Brace: No Comments Mobility Comments Logroll to L side SBA, pt cued fo ruse of handrails. Supine to sit SBA, pt demonstrates good carryover of sequencing. STS from bed SBA with FWW, pt demonstrates good standing balance with no retroleaning. She ambulated ~100' SBA with FWW, had no buckling or LOB. Pt was left back in room in chair, chair alarm on, daugther in room. Gait Assessment Gait Gait Assistance Required: Standby Assistance Distance (Feet) 100 Able to Maintain Weight Bearing Status Yes During Gait Assistive Devices Assistive Device Gait Belt,Front Wheeled Walker Orthotic/Prosthetic Devices or Brace: No Gait Deviations General Gait Pattern Decreased Stride Length, Decreased Feet Clearance Factors Limiting Gait Function Factors Limiting Gait Function Decreased Activity Tolerance, Decreased Strength,Difficulty Following Directions,Limited Range of Motion,Pain,Poor Balance,Poor Safety Awareness PT-Balance Assessment Sitting Balance and Reactions Static Sitting Balance Ability Normal Dynamic Sitting Balance Ability Good Standing Balance and Reactions Static Standing Balance Ability Good Dynamic Standing Balance Ability Good Device Used FWW M5 PT-IP Objective Assessments Start: 12/08/23 11:18 Freq: NEEDED Status: Active Protocol: Document 12/08/23 09:55 AB (Rec: 12/08/23 11:34 AB [id number]) Orientation Orientation/Cognition Level of Alertness Alert Orientation Name,Place,Situation Language Function Ability No Deficits Noted Safety Awareness Decreased Safety Awareness Memory Description Short Term Impaired Gross Range of Motion Lower Extremity ROM Assessment Within Functional Limits Strength Lower Extremity Strength Assessment Within Functional Limits Muscle Tone Muscle Tone WNL Yes M6 PT-IP Treatment Start: 12/08/23 11:18 Freq: NEEDED Status: Active Protocol: Document 12/09/23 10:35 TS (Rec: 12/09/23 10:48 TS [id number]) Physical Therapy Treatment Education Education Provided Precautions,Weight Bearing Status,Post-Op Packet,Safety M7 PT-IP Assessment and Plan Start: 12/08/23 11:18 Freq: NEEDED Status: Active Protocol: Document 12/09/23 10:35 TS (Rec: 12/09/23 10:48 TS [id number]) PT Summary Assessment and Plan Potential Rehabilitation Potential Good Summary Impairments Pain,ROM,Strength,Balance, Coordination,Sensation,Tone, Cognition,Bed Mobility, Transfers,Gait,Activity Tolerance Progress Towards Goals Progressing Toward Goals Assessment Summary Linda is progressing well with her mobility. She is SBA for bed mobility, demonstrates good carryover of sequencing. She continues to ambulate ~100 ' with FWW SBA, she has good balance and no buckling or LOB . PT continues to recommend home vs SNF. Pt could benefit from SNF to improve strength and functional mobility before return home. Goals Bed Mobility Goal Independent Transfer Goal Independent,Front Wheeled Walker Gait Goal Independent,Front Wheel Walker Gait Distance 300 Other Goals up/down 2 steps using SPC SBA Days to Meet Goals 10 Frequency of Treatment Frequency Of Treatment Twice a Day Treatment Plan Physical Therapy Treatment Plan Bed Mobility Training,Transfer Training,Gait Training, Therapeutic Exercise,Balance Retraining,Post Op Education, Discharge Planning,Hot or Cold Pack,Neuromuscular Re-ed, Coordination Retraining,Manual Therapy Precautions Lumbar Precautions Log Roll,No Twisting,Limit Bending,Lifting Restriction of 10 lbs,Gait Belt above Incisional Area Recommendations To Nursing Amount of Assist Needed 1 Person Assist Discharge Recommendations PT Discharge Recommendations Home vs SNF Equipment Needed for Home Before FWW Discharge Transportation Needs at Discharge Private Vehicle,Wheelchair/ Cabulance
--- NOTE | 2023-12-09 13:55 | OT.IP.TRT ---
Current Diagnoses Spinal stenosis, lumbosacral region (12/07/23) Arthrodesis status (12/07/23) Surgery Performed Operation Date: 12/07/23 13:30 Actual Procedures p L5-S1 TLIF, L5-S1 PSF, revision of L4-L5 hardware - Jasvir Cannon MD Occupational Therapy Treatment Note M2 OT-IP Current Condition Start: 12/08/23 09:51 Freq: Status: Active Protocol: Document 12/08/23 09:51 [facility] (Rec: 12/08/23 10:09 [facility] [id number]) Occupational Therapy Current Condition Current Condition Evaluation Date 12/08/23 Treatment Diagnosis S/P L5-S1 TLIF, L4-5 PSF Diagnosis Onset Date 12/07/23 Post Operative Precautions Lumbar Precautions Log Roll,No Twisting,Limit Bending,Lifting Restriction of 10 lbs,Gait Belt above Incisional Area M3 OT- IP Subjective and Pain Start: 12/08/23 09:51 Freq: Status: Active Protocol: Document 12/09/23 13:59 [facility] (Rec: 12/09/23 14:08 [facility] [id number]) OT- Subjective Occupational Therapy Visit Type Type Treatment Note Visit Start Time 13:30 Visit Stop Time 13:55 Occupational Therapy Visit Comments Patient Comments Pt wanting to use the bathroom . Patient/Caregiver Goals To get better. OT Pain Assessment Pain When Pain Assessed During Mobility Pain Present Pain Present Pain Reported Location back Intensity 5 Scale Used Numeric (0 - 10) M4 OT- IP ADL's Start: 12/08/23 09:51 Freq: Status: Active Protocol: Document 12/09/23 13:59 [facility] (Rec: 12/09/23 14:08 [facility] [id number]) OT CDQ-Htvc-Ctkabqz General Evaluation Self-Feeding Ability Independent OT ADL-Grooming General Evaluation Grooming Ability Independent Comments OT Grooming Comments While standing with FWW OT ADL-Oral Care General Eval Oral Care Ability Standby Assistance Comments Oral Care Comments VC to hinge at her hips to spit or spit into a cup to best follow her back precautions. OT ADL-Dressing Comments OT Dressing Comments Continue to suggest pt get LB dressing equipment for her needs. OT ADL-Toileting General Evaluation Toileting Ability Standby Assistance,Minimal Assistance Comments OT Toileting Comments Pt will need assist or use of terrazzo tile setter to assist for her brief and clothing. Pt also needing cues not to twist and best to stand and wipe at this time to best follow her back precautions. MAX vc not to twist and move her feet and body at the same time with the FWW to turn. OT ADL-Bathing Comments OT Bathing Comments Pt refused. M6 OT- IP Functional Cognition Start: 12/08/23 09:51 Freq: Status: Active Protocol: Document 12/09/23 13:59 [facility] (Rec: 12/09/23 14:08 [facility] [id number]) Cognitive Factors Limiting Selfcare Function Cognitive Ability Level of Alertness Alert,Confusional State Patient Orientation Name,Place,Situation Attention Span Ability Capable of Focused Attention, Capable of Sustained Attention Ability to Follow Commands Able to Follow One Step Commands with Increased Time, Able to Follow One Step Commands with Repetition Safety Awareness Decreased Recall of Precautions,Decreased Ability to Apply Precautions, Underestimates Need for Assistance Cognitive Comments Cognitive Assessment Comments Pt still needing cues for her back precautions and how to incorporate them during ADl and mobility needs. Able to simulate scenarios and have the pt identify what she is able to do and not able to do. Pt able to accurately identify correct safety measures 75% of the time. M7 OT- IP Mobility and Balance Start: 12/08/23 09:51 Freq: Status: Active Protocol: Document 12/09/23 13:59 [facility] (Rec: 12/09/23 14:08 [facility] [id number]) OT-Transfer Assessment Sit to and From Stand Sit to and from Stand Standby Assistance Transfers Transfer Ability Standby Assistance Technique Transfer Destination Chair,Toilet Transfer Technique Stand Step Pivot Devices Transfer Assistive Devices Gait Belt,Front Wheeled Walker Comments Mobility Comments SBA with FWW , mainly assist for vc to incorporate her back precautions. OT- Balance Assessment Sitting Balance and Reactions Static Sitting Balance Ability Normal Dynamic Sitting Balance Ability Good Standing Balance and Reactions Static Standing Balance Ability Good Dynamic Standing Balance Ability Good M8 OT- IP Objective Assessments Start: 12/08/23 09:51 Freq: Status: Active Protocol: Document 12/08/23 09:51 [facility] (Rec: 12/08/23 10:09 [facility] [id number]) OT Gross Range of Motion Upper Extremity Range of Motion ROM Impairments WFL for needs. OT Strength Comments Strength Comments WFL for needs. OT-Muscle Tone Assessment Muscle Tone WNL Yes M9 OT- IP Assessment and Plan Start: 12/08/23 09:51 Freq: Status: Active Protocol: Document 12/09/23 13:59 [facility] (Rec: 12/09/23 14:08 [facility] [id number]) OT Summary Assessment and Plan Potential Rehabilitation Potential Excellent Analytic Complexity at Evaluation Low Summary OT Impairments Pain,Balance,Functional Mobility,Dressing,Toileting, Bathing,Toilet Transfers, Shower Transfers Progress Towards Goals Progressing Toward Goals Assessment Summary Pt improving with her mobility but pt's decreased STM results in decreased safety awareness and needing vc to incorporate her precautions for ADL and mobility needs. Pt also needing cues to safety awareness. Pt would benefit form / assist at home and home health versus skilled rehab. Goals Grooming Goal Independent Dressing Goal Independent,Long Handled Shoe Horn,Curb Setter Helper,Sock Aid Toileting Goal Independent Bathing Goal Independent Toilet Transfer Goal Independent Shower Transfer Goal Independent Patient/Caregiver Education Goal Caregiver Independent Assisting Patient Days to Meet Goals 10 Frequency of Treatment Frequency Of Treatment Once a Day Treatment Plan OT Treatment Plan ADL Training,Functional Mobility,Patient/Family Education,Discharge Planning Discharge Recommendations OT Discharge Recommendations Home with 27/04 Assist Available,Home Health,SNF Rehab,Home vs SNF Home Equipment Needs LB dressing equipment, BSC Transportation Needs at Discharge Private Vehicle,Wheelchair/ Cabulance
--- NOTE | 2023-12-09 13:55 | PT.IPTN ---
Current Diagnoses Spinal stenosis, lumbosacral region (12/07/23) Arthrodesis status (12/07/23) Surgery Performed Operation Date: 12/07/23 13:30 Actual Procedures p L5-S1 TLIF, L5-S1 PSF, revision of L4-L5 hardware - Jasvir Cannon MD Physical Therapy Treatment Note M2 PT-IP Current Condition Start: 12/08/23 11:18 Freq: NEEDED Status: Active Protocol: Document 12/08/23 09:55 AB (Rec: 12/08/23 11:34 AB [id number]) Physical Therapy Current Condition Current Condition Evaluation Date 12/08/23 Treatment Diagnosis s/p L4-5 instrum; s/p L5S1 TLIF; difficulty in walking Onset Date 12/07/23 M3 PT-IP Subjective Start: 12/08/23 11:18 Freq: NEEDED Status: Active Protocol: Document 12/09/23 14:09 TS (Rec: 12/09/23 14:16 TS [id number]) Subjective Physical Therapy Visit Type Type Treatment Note Visit Start Time 13:55 Visit Stop Time 14:08 Number of [employer] Visits 3 Physical Therapy Visit Comments Patient Comments Pt found resting in chair, OT in room, pt agreeable to PT. Therapy Pain Assessment Pain When Pain Assessed At Rest Pain Present Pain Present Pain Reported Location back Intensity 3 Scale Used Numeric (0 - 10) Description With Movement Pain Management Techniques Distraction,Modification of Treatment,Re-positioning, Timing of Activity with Medications M4 PT-IP Mobility and Gait Start: 12/08/23 11:18 Freq: NEEDED Status: Active Protocol: Document 12/09/23 14:09 TS (Rec: 12/09/23 14:16 TS [id number]) PT-Transfer Assessment Sit to and From Stand Sit to and from Stand Standby Assistance,Use of Upper Extremities Equipment Transfer Assistive Device Gait Belt,Front Wheeled Walker Orthotic/Prosthetic Devices or Brace: No Comments Mobility Comments STS from chair SBA with use of FWW, pt demonstrates good standing balance. She ambulated ~200'SBA with FWW with a step thru gait and good pace. Pt ambulated back to room, was left in chair with alarm on, all needs met. Gait Assessment Gait Gait Assistance Required: Standby Assistance Distance (Feet) 200 Able to Maintain Weight Bearing Status Yes During Gait Assistive Devices Assistive Device Gait Belt,Front Wheeled Walker Orthotic/Prosthetic Devices or Brace: No Gait Deviations General Gait Pattern Decreased Stride Length, Decreased Feet Clearance Factors Limiting Gait Function Factors Limiting Gait Function Decreased Activity Tolerance, Decreased Strength,Difficulty Following Directions,Limited Range of Motion,Pain,Poor Balance,Poor Safety Awareness PT-Balance Assessment Sitting Balance and Reactions Static Sitting Balance Ability Normal Dynamic Sitting Balance Ability Good Standing Balance and Reactions Static Standing Balance Ability Good Dynamic Standing Balance Ability Good Device Used FWW M5 PT-IP Objective Assessments Start: 12/08/23 11:18 Freq: NEEDED Status: Active Protocol: Document 12/08/23 09:55 AB (Rec: 12/08/23 11:34 AB [id number]) Orientation Orientation/Cognition Level of Alertness Alert Orientation Name,Place,Situation Language Function Ability No Deficits Noted Safety Awareness Decreased Safety Awareness Memory Description Short Term Impaired Gross Range of Motion Lower Extremity ROM Assessment Within Functional Limits Strength Lower Extremity Strength Assessment Within Functional Limits Muscle Tone Muscle Tone WNL Yes M6 PT-IP Treatment Start: 12/08/23 11:18 Freq: NEEDED Status: Active Protocol: Document 12/09/23 14:09 TS (Rec: 12/09/23 14:16 TS [id number]) Physical Therapy Treatment Education Education Provided Precautions,Weight Bearing Status,Post-Op Packet,Safety M7 PT-IP Assessment and Plan Start: 12/08/23 11:18 Freq: NEEDED Status: Active Protocol: Document 12/09/23 14:09 TS (Rec: 12/09/23 14:16 TS [id number]) PT Summary Assessment and Plan Potential Rehabilitation Potential Good Summary Impairments Pain,ROM,Strength,Balance, Coordination,Sensation,Tone, Cognition,Bed Mobility, Transfers,Gait,Activity Tolerance Progress Towards Goals Progressing Toward Goals Assessment Summary Linda continues to make good progress with her mobility. She is SBA for STS with FWW. She dmeonstrates good standing balance with no retroleaning. She progressed her gait to ~ 200'SBA with FWW. She ambulates with a step thru gait and quick pace. PT continues to recommend home vs SNF. Goals Bed Mobility Goal Independent Transfer Goal Independent,Front Wheeled Walker Gait Goal Independent,Front Wheel Walker Gait Distance 300 Other Goals up/down 2 steps using SPC SBA Days to Meet Goals 10 Frequency of Treatment Frequency Of Treatment Twice a Day Treatment Plan Physical Therapy Treatment Plan Bed Mobility Training,Transfer Training,Gait Training, Therapeutic Exercise,Balance Retraining,Post Op Education, Discharge Planning,Hot or Cold Pack,Neuromuscular Re-ed, Coordination Retraining,Manual Therapy Precautions Lumbar Precautions Log Roll,No Twisting,Limit Bending,Lifting Restriction of 10 lbs,Gait Belt above Incisional Area Recommendations To Nursing Amount of Assist Needed 1 Person Assist Discharge Recommendations PT Discharge Recommendations Home vs SNF Equipment Needed for Home Before FWW Discharge Transportation Needs at Discharge Private Vehicle,Wheelchair/ Cabulance
[2023-12-09] MEDS: DONEPEZIL 5 MG TABLET 10 MG PO (17:16)
[2023-12-09 20:00] VITALS: BP 159/66; PULSE 65; RESP 16; TEMP 37.4; O2SAT 95
[2023-12-09] MEDS: SENNOSIDES 8.6 MG TABLET 17.2 MG PO (20:24)
[2023-12-10] MEDS: DEXAMETHASONE 4 MG/ML VIAL IV ×3 (00:18→11:35)
[2023-12-10] MEDS: HYDROMORPHONE 0.5 MG INJ IV (00:26)
[2023-12-10] MEDS: ACETAMINOPHEN 325 MG TABLET 650 MG PO ×2 (02:28→08:31)
[2023-12-10] MEDS: OXYCODONE IR 5 MG TABLET PO (02:29)
--- NOTE | 2023-12-10 06:40 | P.DS_ITS ---
History of Present Illness History of Present Illness Date Patient Seen: 12/10/23 Time Patient Seen: 06:41 Chief complaint: TLIF Narrative: Operative Date/Time/Diagnoses Date of procedure: 12/07/23 Time of procedure: 13:00 Pre-op diagnosis: 1. History of L4-5 TLIF with retained hardware 2. L5-S1 spondylolisthesis 3. L5-S1 spinal stenosis Post-op diagnosis: same Procedure & Clinicians Procedure: 1. L5-S1 posterolateral and posterior interbody fusion 2. L5-S1 posterior interbody cage placement 3. L4-5 posterior non-segmental instrumentation removal 4. L4-5 revision laminectomy with exploration of fusion 5. L5-S1 posterior segmental instrumentation with pedicle screw placement 6. [place] of bone marrow from iliac crest through a separate incision 7. Utilization of microsurgical technique and operating microscope Same procedure as scheduled: Yes Indications: Patient has been having chronic back pain and worsening lumbar radiculopathy. Patient had prior L4-5 fusion more than 10 years ago and has been doing well until about a year ago. Patient has imaging showing severe foraminal stenosis at L5-S1 with anterolisthesis due to significant facet arthropathy with prior L4-5 fusion. Patient failed multiple conservative management with worsening pain weakness and numbness in her lower extremity. Patient has been having difficulty performing activity of daily living. After discussing risks benefits of treatment options, patient elected proceed with surgery. Surgeon: Jasvir Cannon Ship Superintendent: Shima Chaves Click Yes if Unassisted: No Anesthesia Type: General Operative Notes Closure Type: primary Specimen(s): none sent Prosthetic devices, grafts, tissues, transplants, or devices: Globus revolve screws, Rise cage Estimated Blood Loss (mL): 50 Blood products transfused: none Discharge Providers Provider Date of admission: 12/07/23 11:43 Discharge Date: 12/10/23 Primary care physician: Florinda Urbano MD Consults: 12/07/23 18:52 Consult to Occupational Therapy Evaluate & Treat Comment: Physician Instructions: Evaluate and treat Consult to Physical Therapy Evaluate & Treat Comment: Physician Instructions: Evaluate and Treat 12/07/23 19:19 Consult to EPIDEMIOLOGY INTERN - Insight Leader Routine Comment: post op back, wants SNF at [place] Discharge provider: Shima Chaves PA-C Summary Hospital Course Discharge Diagnosis: History of L4-5 TLIF with retained hardware, L5-S1 spondylolisthesis, L5-S1 spinal stenosis; s/p L5-S1 lumbar fusion Hospital Course: Ms Oden's hospital course was remarkable for poor pain control and slow progress w/ PT. Throughout her stay, she was evaluated by PT who recommended home w/ assistance vs SNF. The decision was made by pt and family for d/c to SNF rehab prior to going home. On the morning of POD# 3, she was feeling well. She was eating and voiding without difficulty. Her pain was being managed w/ narcotic pain medication as well as steroids. Exam Vital Signs (past 8 hours): Oxygen Delivery Method Simple Mask Oxygen Flow Rate 0 Narrative Exam Narrative: 5/5 strength in hip flexors, quadriceps, hamstrings, DF, PF, EHL bilaterally. Sensation to light touch intact in BLE. Calves soft, compressible, nontender. Low back dressing CDI. Objective Labs 12/08/23 05:00 [facility] Medical History (Updated 12/03/23 @ 09:18 by Annel Schmidt RN) History of COVID-19 (2019) Depression Spinal stenosis HTN (hypertension) Macular degeneration Dementia Rash (11/2023) Facet arthropathy, lumbar Lumbosacral radiculopathy Snoring Flexor hallucis longus tendonitis Hyponatremia Osteoporosis Internal hemorrhoids Surgical History (Updated 12/09/23 @ 08:03 by Shima Chaves PA-C) Hx of bilateral cataract extraction Hx of dilation and curettage History of back surgery Social History household members: none Smoking Status: Never smoker alcohol intake: current Discharge Assessment & Plan Assessment and Plan Assessment: History of L4-5 TLIF with retained hardware, L5-S1 spondylolisthesis, L5-S1 spinal stenosis; s/p L5-S1 lumbar fusion Plan of Treatment: D/c to SNF. Will send oral steroid taper to start on 12/11/2023. F/u in office in 2 weeks as scheduled. Discharge Plan Discharge Plan Patient Disposition: SNF Transfer to: [facility] and [facility] Discharge orders & Medications Prescriptions: New acetaminophen 325 mg Tablet 650 mg PO Q6H Qty: 120 0RF docusate sodium 100 mg Capsule 100 mg PO BID Qty: 60 1RF oxycodone 5 mg Tablet 5 mg PO Q4-6H PRN (Reason: Pain, Moderate (4-6)) Qty: 60 0RF methylprednisolone [Methylpred DP] 4 mg tablets,dose pack See Rx Instructions .ROUTE .COMPLEX Qty: 21 0RF Rx Instructions: orally per package directions Continued donepezil 10 mg tablet 10 mg PO QPM lisinopril 20 mg tablet 20 mg PO DAILY Qty: 90 1RF alendronate 70 mg tablet 70 mg PO QWEEK Qty: 12 3RF gabapentin 300 mg Capsule 300 mg PO BID Qty: 60 0RF Follow up/Referrals: Jasvir Cannon MD [Physician] - 12/22/23 2:00 pm (Follow up w/ Juju Camacho PA-C, at [facility] office in [place].) Florinda Urbano MD [Primary Care Provider] - Diet/Activity/Treatments Diet: Diet as Tolerated Activity: No deep bending or twisting at the waist. No lifting more than 10 pounds. Cold/Heat Therapy: Heating pad to low back as needed for pain. Skin/Wound/Dressing Care Report to your healthcare provider any signs of infection, such as:: chills, fever, night sweats, unusual drainage and unusual redness Dressing: May shower; keep dressings as dry as possible. If dressings become wet or dirty, may remove and replace with clean, dry gauze. No bathing or otherwise soaking incisions. Do not apply any creams, lotions, or ointments to incisions. Visit Report/Discharge Packet Instructions: DI for Transforaminal Lumbar Interbody Fusion, DI for Prescription Opioid Use Stand Alone Forms: Patient Portal/API, Surgery Discharge Discharge Data Primary Care Provider: Florinda Urbano Quality VTE Deep Vein Thrombosis/Pulmonary Embolism Present on Admission: No
[2023-12-10 08:30] VITALS: BP 153/67; PULSE 60
[2023-12-10] MEDS: lisinopriL 20 MG TABLET PO (08:30)
[2023-12-10] MEDS: polyethylene glycoL 3350 17 GM POWD.PACK PO (08:31)
[2023-12-10] MEDS: GABAPENTIN 300 MG CAPSULE PO (08:31)
[2023-12-10] MEDS: DOCUSATE 100 MG CAPSULE PO (08:31)
--- NOTE | 2023-12-10 09:09 | CM.DPC ---
DCP Cont. Reviewed EMR and team rounds for status updates. Pt is now medically cleared for d/c, plan is for her to be picked up at 1:00pm today to go to [facility] for rehab. Called dtr to update, clinicals faxed. No further needs indicated at this time for DCP.
--- NOTE | 2023-12-10 10:15 | PT.IPTN ---
Current Diagnoses Spinal stenosis, lumbosacral region (12/07/23) Arthrodesis status (12/07/23) Surgery Performed Operation Date: 12/07/23 13:30 Actual Procedures p L5-S1 TLIF, L5-S1 PSF, revision of L4-L5 hardware - Jasvir Cannon MD Physical Therapy Treatment Note M2 PT-IP Current Condition Start: 12/08/23 11:18 Freq: NEEDED Status: Active Protocol: Document 12/08/23 09:55 AB (Rec: 12/08/23 11:34 AB [id number]) Physical Therapy Current Condition Current Condition Evaluation Date 12/08/23 Treatment Diagnosis s/p L4-5 instrum; s/p L5S1 TLIF; difficulty in walking Onset Date 12/07/23 M3 PT-IP Subjective Start: 12/08/23 11:18 Freq: NEEDED Status: Active Protocol: Document 12/10/23 10:50 TS (Rec: 12/10/23 10:56 TS [id number]) Subjective Physical Therapy Visit Type Type Treatment Note Visit Start Time 10:15 Visit Stop Time 10:38 Number of [employer]ADER Visits 4 Physical Therapy Visit Comments Patient Comments Pt found resting in chair, reports pain is 3/10, is agreeable to PT. Therapy Pain Assessment Pain When Pain Assessed At Rest Pain Present Pain Present Pain Reported Location back Intensity 3 Scale Used Numeric (0 - 10) Description With Movement Pain Management Techniques Distraction,Modification of Treatment,Re-positioning, Timing of Activity with Medications M4 PT-IP Mobility and Gait Start: 12/08/23 11:18 Freq: NEEDED Status: Active Protocol: Document 12/10/23 10:50 TS (Rec: 12/10/23 10:56 TS [id number]) PT-Transfer Assessment Sit to and From Stand Sit to and from Stand Standby Assistance,Use of Upper Extremities Equipment Transfer Assistive Device Gait Belt,Front Wheeled Walker Orthotic/Prosthetic Devices or Brace: No Comments Mobility Comments STS from chair SBA with FWW, pt demonstrates good standing balance. She ambulated in hallway ~300'SBA with FWW. She performed stairs x6 with B handrails SBA, pt had no buckling or LOB. Pt ambualted back to room, requested to use toilet, performed own pericare. pt was left in chair with alarm on, all needs met. Gait Assessment Gait Gait Assistance Required: Standby Assistance Distance (Feet) 300 Able to Maintain Weight Bearing Status Yes During Gait Assistive Devices Assistive Device Gait Belt,Front Wheeled Walker Orthotic/Prosthetic Devices or Brace: No Gait Deviations General Gait Pattern Decreased Stride Length, Decreased Feet Clearance Factors Limiting Gait Function Factors Limiting Gait Function Decreased Activity Tolerance, Decreased Strength,Difficulty Following Directions,Limited Range of Motion,Pain,Poor Balance,Poor Safety Awareness Stair Climbing Assessment Evaluation Level of Assist On Stairs Standby Assistance Devices Stair Climbing Assistive Devices Left Railing,Right Railing Technique/Endurance Stair Climbing Direction Ascend and Descend Stair Climbing Technique Step to Step Number of Steps Climbed 6 Comments Stair Climbing Comments See mobility comments PT-Balance Assessment Sitting Balance and Reactions Static Sitting Balance Ability Normal Dynamic Sitting Balance Ability Good Standing Balance and Reactions Static Standing Balance Ability Good Dynamic Standing Balance Ability Good Device Used FWW M5 PT-IP Objective Assessments Start: 12/08/23 11:18 Freq: NEEDED Status: Active Protocol: Document 12/08/23 09:55 AB (Rec: 12/08/23 11:34 AB [id number]) Orientation Orientation/Cognition Level of Alertness Alert Orientation Name,Place,Situation Language Function Ability No Deficits Noted Safety Awareness Decreased Safety Awareness Memory Description Short Term Impaired Gross Range of Motion Lower Extremity ROM Assessment Within Functional Limits Strength Lower Extremity Strength Assessment Within Functional Limits Muscle Tone Muscle Tone WNL Yes M6 PT-IP Treatment Start: 12/08/23 11:18 Freq: NEEDED Status: Active Protocol: Document 12/10/23 10:50 TS (Rec: 12/10/23 10:56 TS [id number]) Physical Therapy Treatment Education Education Provided Precautions,Weight Bearing Status,Post-Op Packet,Safety M7 PT-IP Assessment and Plan Start: 12/08/23 11:18 Freq: NEEDED Status: Active Protocol: Document 12/10/23 10:50 TS (Rec: 12/10/23 10:56 TS [id number]) PT Summary Assessment and Plan Potential Rehabilitation Potential Good Summary Impairments Pain,ROM,Strength,Balance, Coordination,Sensation,Tone, Cognition,Bed Mobility, Transfers,Gait,Activity Tolerance Progress Towards Goals Progressing Toward Goals Assessment Summary Jasmyne continues to progress with her mobility. She is SBA for STS with use of FWW and demonstrates good standin balance. She progressed her gait to ~300'SBA with FWW. She performed stairs x6 SBA with B handrails. Pt contineus to recommend home v SNF. Goals Bed Mobility Goal Independent Transfer Goal Independent,Front Wheeled Walker Gait Goal Independent,Front Wheel Walker Gait Distance 300 Other Goals up/down 2 steps using SPC SBA Days to Meet Goals 10 Frequency of Treatment Frequency Of Treatment Twice a Day Treatment Plan Physical Therapy Treatment Plan Bed Mobility Training,Transfer Training,Gait Training, Therapeutic Exercise,Balance Retraining,Post Op Education, Discharge Planning,Hot or Cold Pack,Neuromuscular Re-ed, Coordination Retraining,Manual Therapy Precautions Lumbar Precautions Log Roll,No Twisting,Limit Bending,Lifting Restriction of 10 lbs,Gait Belt above Incisional Area Recommendations To Nursing Amount of Assist Needed Standby Assistance Discharge Recommendations PT Discharge Recommendations Home vs SNF Equipment Needed for Home Before FWW Discharge Transportation Needs at Discharge Private Vehicle,Wheelchair/ Cabulance
--- NOTE | 2023-12-10 11:30 | OT.IP.TRT ---
Current Diagnoses Spinal stenosis, lumbosacral region (12/07/23) Arthrodesis status (12/07/23) Surgery Performed Operation Date: 12/07/23 13:30 Actual Procedures p L5-S1 TLIF, L5-S1 PSF, revision of L4-L5 hardware - Jasvir Cannon MD Occupational Therapy Treatment Note M2 OT-IP Current Condition Start: 12/08/23 09:51 Freq: Status: Active Protocol: Document 12/08/23 09:51 [facility] (Rec: 12/08/23 10:09 [facility] [id number]) Occupational Therapy Current Condition Current Condition Evaluation Date 12/08/23 Treatment Diagnosis S/P L5-S1 TLIF, L4-5 PSF Diagnosis Onset Date 12/07/23 Post Operative Precautions Lumbar Precautions Log Roll,No Twisting,Limit Bending,Lifting Restriction of 10 lbs,Gait Belt above Incisional Area M3 OT- IP Subjective and Pain Start: 12/08/23 09:51 Freq: Status: Active Protocol: Document 12/10/23 11:30 [facility] (Rec: 12/10/23 12:40 [facility] [id number]) OT- Subjective Occupational Therapy Visit Type Type Treatment Note Visit Start Time 10:51 Visit Stop Time 11:30 Occupational Therapy Visit Comments Patient Comments Pt agreed to shower. Patient/Caregiver Goals To get better and go home. OT Pain Assessment Pain When Pain Assessed During Mobility Pain Present Pain Present Pain Reported M4 OT- IP ADL's Start: 12/08/23 09:51 Freq: Status: Active Protocol: Document 12/10/23 11:30 [facility] (Rec: 12/10/23 12:40 [facility] [id number]) OT TWS-Xctk-Cxvancc General Evaluation Self-Feeding Ability Independent OT ADL-Grooming General Evaluation Grooming Ability Independent Comments OT Grooming Comments While standing with FWW OT ADL-Oral Care Comments Oral Care Comments Not performed. OT ADL-Dressing General Eval Lower Body Dressing Ability Maximum Assistance Areas Needing Assistance Underpants/Brief,Socks Comments OT Dressing Comments Pt able to use the deck officer to black/doff the brief over her feet . Pt needing assist for socks at this time. Pt will still benefit from a sock aid, deck officer, and shoe horn. OT ADL-Toileting General Evaluation Toileting Ability Minimal Assistance Comments OT Toileting Comments Pt will benefit from a BSC and toilet paper aid versus bidet . Pt able to reach a little better when standing to wipe. OT ADL-Bathing Bathing Type Bathing Type Shower General Evaluation Bathing Ability Moderate Assistance,Maximal Assistance Areas Needing Assistance Wash/Dry Back,Wash/Dry Lower Extremities Devices Bathing Equipment Hand Held Shower Sprayer, Shower Chair with Arms,Grab Bars Comments OT Bathing Comments Pt needing assist to wash the bottom of her feet, back, and for her hair. Pt is well aware to follow her back precautions during the shower. M5 OT- IP IADL's Start: 12/08/23 09:51 Freq: Status: Active Protocol: Document 12/08/23 09:51 [facility] (Rec: 12/08/23 10:09 [facility] [id number]) OT-Instrumental Activities of Daily Living Deficits IADL Deficits Identified Deficits Home Safety Awareness Awareness of Need for Assistance at Home Good Awareness Home Safety Comments Pt is a little groggy at this time and best to have at least supervision for her needs. Medication Management Medication Management Comments Best to have assist at this time. Money Management Money Management Comments Best to have assist. Meal Preparation Meal Preparation Caregiver Provides Assist Healthcare Financial Analyst Healthcare Financial Analyst Caregiver Provides Assist Driving Driving Concerns Identified Regarding Safety M6 OT- IP Functional Cognition Start: 12/08/23 09:51 Freq: Status: Active Protocol: Document 12/10/23 11:30 [facility] (Rec: 12/10/23 12:40 [facility] [id number]) Cognitive Factors Limiting Selfcare Function Cognitive Ability Level of Alertness Alert Patient Orientation Name,Place,Situation Attention Span Ability Capable of Focused Attention, Capable of Sustained Attention Ability to Follow Commands Able to Follow One Step Commands Safety Awareness Decreased Ability to Apply Precautions Cognitive Comments Cognitive Assessment Comments Pt doing better to follow her back precautions today and needing less cues to follow them during ADL and mobility needs. M7 OT- IP Mobility and Balance Start: 12/08/23 09:51 Freq: Status: Active Protocol: Document 12/10/23 11:30 [facility] (Rec: 12/10/23 12:40 [facility] [id number]) OT-Transfer Assessment Sit to and From Stand Sit to and from Stand Standby Assistance Transfers Transfer Ability Standby Assistance Technique Transfer Destination Chair,Shower Stall,Toilet Transfer Technique Stand Step Pivot Devices Transfer Assistive Devices Gait Belt,Front Wheeled Walker Comments Mobility Comments SBA with FWW. OT- Balance Assessment Sitting Balance and Reactions Static Sitting Balance Ability Normal Dynamic Sitting Balance Ability Good Standing Balance and Reactions Static Standing Balance Ability Good Dynamic Standing Balance Ability Good M8 OT- IP Objective Assessments Start: 12/08/23 09:51 Freq: Status: Active Protocol: Document 12/08/23 09:51 [facility] (Rec: 12/08/23 10:09 [facility] [id number]) OT Gross Range of Motion Upper Extremity Range of Motion ROM Impairments WFL for needs. OT Strength Comments Strength Comments WFL for needs. OT-Muscle Tone Assessment Muscle Tone WNL Yes M9 OT- IP Assessment and Plan Start: 12/08/23 09:51 Freq: Status: Active Protocol: Document 12/10/23 11:30 [facility] (Rec: 12/10/23 12:40 [facility] [id number]) OT Summary Assessment and Plan Potential Rehabilitation Potential Excellent Analytic Complexity at Evaluation Low Summary OT Impairments Pain,Balance,Functional Mobility,Dressing,Toileting, Bathing,Toilet Transfers, Shower Transfers Progress Towards Goals Progressing Toward Goals Assessment Summary Pt able to follow directions for shower today and doing better to with her back precautions. Pt going to skilled rehab today. Goals Grooming Goal Independent Dressing Goal Independent,Long Handled Shoe Horn,Cnc Machinist,Sock Aid Toileting Goal Independent Bathing Goal Independent Toilet Transfer Goal Independent Shower Transfer Goal Independent Patient/Caregiver Education Goal Caregiver Independent Assisting Patient Days to Meet Goals 10 Frequency of Treatment Frequency Of Treatment Once a Day Treatment Plan OT Treatment Plan ADL Training,Functional Mobility,Patient/Family Education,Discharge Planning Discharge Recommendations OT Discharge Recommendations SNF Rehab Home Equipment Needs LB dressing equipment, BSC Transportation Needs at Discharge Wheelchair/Cabulance
== END 2023-12-10 13:15 | DRG 455 ==
PROVIDERS: Admitting Provider Orthopaedic Surgery Orthopaedic Surgery of the Spine; Family Provider Student in an Organized Health Care Education/Training Program; PCP Student in an Organized Health Care Education/Training Program; Referring Provider Student in an Organized Health Care Education/Training Program; Visit Provider Orthopaedic Surgery Orthopaedic Surgery of the Spine
PROC: 0SG30AJ Fusion of Lumbosacral Joint with Interbody Fusion Device, Posterior Approach, Anterior Column, Open Approach (ICD-10-PCS; principal; 2023-12-07 13:30)
DX: M43.17 Spondylolisthesis, lumbosacral region (principal); M47.26 Other spondylosis with radiculopathy, lumbar region; M48.07 Spinal stenosis, lumbosacral region; M96.1 Postlaminectomy syndrome, not elsewhere classified; G89.18 Other acute postprocedural pain; M81.0 Age-related osteoporosis without current pathological fracture; I10 Essential (primary) hypertension; Z98.1 Arthrodesis status
CPT/HCPCS: 36415; 72100; 76000; 85014; 85018; 97116; 97161; 97165; 97530; 97535; C1713; C9290; J0171; J0330; J0690; J1100; J1170; J1885; J2405; J2704; J3010; J3410

== ENCOUNTER → 2023-12-10 22:11 | Outpatient (ROUT) | payer MEDICARE, BC, SELFPAY ==
[2023-12-07 11:53] VITALS: BMI 26.9
== END ==
PROVIDERS: Family Provider Student in an Organized Health Care Education/Training Program; PCP Student in an Organized Health Care Education/Training Program; Visit Provider Internal Medicine
DX: Z13.89 Encounter for screening for other disorder (principal)
CPT/HCPCS: 87086

== ENCOUNTER 2024-02-25 10:53 | Inpatient (IN) | payer MEDICARE, BC, SELFPAY ==
[2023-12-07 11:53] VITALS: BMI 26.9
[2024-02-25] VITALS (20 sets, daily range): BP systolic 149–213; BP diastolic 55–93; PULSE 50–74; RESP 13–26; TEMP 35–37.1; O2SAT 95–100; BMI 27.2
--- NOTE | 2024-02-25 10:59 | DI.CT.S_ITS ---
PROCEDURE: CT STROKE INDICATIONS: slurred speech TECHNIQUE: Noncontrast 4.5 mm thick angled axial sections acquired from the foramen magnum to the vertex, with coronal reformats. For radiation dose reduction, the following was used: automated exposure control, adjustment of mA and/or kV according to patient size. COMPARISON: None. FINDINGS: Image quality: Diagnostic. CSF spaces: Basal cisterns are patent. No extra-axial fluid collections. Ventricles are normal in size and shape. Brain: No midline shift. No intracranial masses or hemorrhage. Yanez-white matter interface is normal. Skull and face: Calvarium and visualized facial bones are intact, without suspicious lesions. Sinuses: Visualized sinuses and mastoids are clear. IMPRESSION: No acute intracranial pathology. Findings discussed with Dr. Layne at 11:05 a.m. On 02/25/2024. This study fulfills neurological imaging criteria for inclusion or exclusion of acute stroke therapies based on available published neurological imaging guidelines. Dictated by: Javan Keenan M.D. on 02/25/2024 at 11:04 Approved by: Javan Keenan M.D. on 02/25/2024 at 11:05
--- NOTE | 2024-02-25 10:59 | DI.CT.S_ITS ---
PROCEDURE: CT ANGIO HEAD AND NECK INDICATIONS: slurred speech TECHNIQUE: After the administration of intravenous contrast, 1 mm thick sections acquired from the aortic arch through the [place] [facility] [place]. 3-dimensional asctiou-nrfmyczqp-cytpncqhgv (MIP) and/or volume rendering reformats were acquired of the central intracranial vasculature and neck separately. For radiation dose reduction, the following was used: automated exposure control, adjustment of mA and/or kV according to patient size. COMPARISON: None. FINDINGS: Image quality: Diagnostic. BRAIN: CSF spaces: Ventricles are normal in size and shape. Basal cisterns are patent. No extra-axial fluid collections. Brain: No significant abnormality of the brain can be seen. Skull and face: Calvarium and facial bones appear intact, without suspicious lesions. Orbits appear normal. Sinuses: Sinuses and mastoids are clear. HEAD CT ANGIOGRAPHY: Anterior circulation: Intracranial internal carotid arteries are normal in size and flow. The flow within the paired anterior cerebral arteries is normal and symmetric. The flow within the middle cerebral arteries is normal and symmetric. The anterior communicating artery is seen. There is a 2 x 3 millimeter saccular aneurysm extending off the inferior margin of the left M1 segment (series 5, image 99 and series 4, image 116). Posterior circulation: Visualized portions of the vertebral arteries demonstrate normal caliber, and join to form a normal appearing basilar artery. Flow within the posterior cerebral arteries is normal and symmetric. No aneurysms are seen. NECK CT ANGIOGRAPHY: Carotid system: The great vessels demonstrate a conventional anatomy as they arise from the aortic arch. The origins of the common carotid arteries appear patent. The common carotid arteries demonstrate normal caliber and courses. The bifurcation regions are both widely patent. The internal carotid arteries demonstrate normal calibers and courses. Posterior circulation: The origins of the vertebral arteries both appear widely patent. The more superior extracranial portions of both vertebral arteries also demonstrate normal courses and calibers. They join to form a normal appearing basilar artery. Soft tissues: Visualized neck soft tissues demonstrate no suspicious abnormalities. Bones: No suspicious bony lesions. Visualized cervical spine appears normally aligned. IMPRESSION: No large vessel occlusion. 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 No evidence of rupture. Any quantitative measurements of stenosis were performed using NASCET criteria. Dictated by: Javan Keenan M.D. on 02/25/2024 at 11:18 Approved by: Javan Keenan M.D. on 02/25/2024 at 11:23
--- NOTE | 2024-02-25 11:02 | DI.RAD.S_ITS ---
PROCEDURE: XR CHEST 1V INDICATIONS: stroke TECHNIQUE: One view of the chest was acquired. COMPARISON: None. FINDINGS: Surgical changes and devices: None. Lungs and pleura: Lungs are clear. No pleural effusions or pneumothorax. Mediastinum: Mediastinal contours appear normal. Heart size is normal. Bones and chest wall: No suspicious bony lesions. Overlying soft tissues appear unremarkable. IMPRESSION: No acute cardiopulmonary abnormality is seen. Dictated by: Javan Keenan M.D. on 02/25/2024 at 11:15 Approved by: Javan Keenan M.D. on 02/25/2024 at 11:15
[2024-02-25 11:52] LABS: COVID19 -Nasal RAPID Negative (Negative)
[2024-02-25 11:52] LABS: Add Manual Diff / Slide Review NO; Basophils Absolute Auto 100 /uL (0-100); Basophils Percent Auto 1.9 % (0-2); Eosinophils Absolute Auto 0 /uL (0-450); Eosinophils Percent Auto 0.8 % (2-4); Hematocrit 35.4 % (36-46); Hemoglobin 11.9 g/dL (12.0-16.0); Lymphocytes Absolute Auto 2500 /uL (1100-4500); Lymphocytes Percent Auto 51.4 % (25-40); Mean Corpuscular HGB Conc 33.6 % (30-36); Mean Corpuscular Volume 89.3 fL (80-100); Monocytes Absolute Auto 400 /uL (0-900); Monocytes Percent Auto 9.3 % (3-14); Neutrophils Absolute Auto 1800 /uL (1500-7000); Neutrophils Percent Auto 36.6 % (50-75); Platelet Count 192 X10^3/uL (150-400); Red Blood Cell Count 3.96 X10^6/uL (4.0-5.2); Red Cell Distribution Width 13.9 % (11.6-14.8); White Blood Cell Count 4.8 X10^3/uL (4.5-11.0)
[2024-02-25 11:58] LABS: INR 0.9 (0.9-1.3); Prothrombin Time 10.7 SECONDS (9.4-12.5)
[2024-02-25 12:01] LABS: PTT Partial Thromboplastin Tim 22 SECONDS (25.1-36.5)
[2024-02-25 12:02] LABS: Alanine Aminotransferase 14 IU/L (<35); Albumin 3.9 g/dL (3.5-5.0); Albumin Globulin Ratio 1.6 (1.0-2.8); Alkaline Phosphatase 51 U/L (38-126); Aspartate Aminotransferase 35 IU/L (14-36); BUN Creatinine Ratio 19.2 (6-22); Bilirubin Total 0.5 mg/dL (0.2-1.3); Blood Urea Nitrogen 10 mg/dL (7-17); Calcium 8.5 mg/dL (8.4-10.2); Carbon Dioxide 24 mmol/L (22-32); Chloride 104 mmol/L (98-107); Creatine Kinase 57 U/L (30-135); Estimated Glomerular Filt Rate > 60 mL/min (>60); Ethanol (ETOH) < 10 mg/dL; Globulin 2.5 g/dL (1.7-4.1); Glucose 100 mg/dL (80-110); HEMOLYSIS 45 (0-50); Potassium 4.7 mmol/L (3.4-5.1); Sodium 133 mmol/L (137-145); Total Protein 6.4 g/dL (6.3-8.2)
--- NOTE | 2024-02-25 12:07 | ED.NEUROSD ---
HPI - Neuro Symptoms/Deficit General Chief Complaint: Neuro Symptoms/Deficit Stated Complaint: Code Stroke Time Seen by Provider: 02/25/24 10:59 Source: patient and EMS Mode of arrival: EMS History of Present Illness HPI Narrative: Patient is a 78-year-old female history of dementia presents today as a code stroke. Apparently caregiver arrived noticed some slurring of speech between 9:00 a.m. and 10:00 a.m.. EMS arrived and they did not appreciate any sort of deficit she has a negative fast. However upon standing she was unstable on her feet and also she was unable to write her name on their pad so she was brought in. She has not on any antiplatelet or anticoagulation medication. She has not had any fever or chills. She is awake alert and answering questions for me. Possibly mild right-sided facial droop I spoke with the son who is aware the patient is here also patient's caregiver and daughter are at bedside. On Anticoagulants: No Related Data Previous Rx's Medication Instructions Recorded acetaminophen 650 mg 650 mg PO BID pain #60 tabs 01/27/24 tablet,extended release (Pain Relief (acetaminophen)) alendronate 70 mg tablet 70 mg PO .once weekly/sundays #4 01/27/24 tabs cholecalciferol (vitamin D3) 50 50 mcg PO DAILY #30 caps 01/27/24 mcg (2,000 unit) capsule donepezil 10 mg tablet 10 mg PO QPM #30 tabs 01/27/24 gabapentin 300 mg capsule 300 mg PO BID #60 caps 01/27/24 lisinopril 20 mg tablet 20 mg PO DAILY for blood pressure 01/27/24 #30 tabs Allergies Allergy/AdvReac Type Severity Reaction Status Date / Time Sulfa (Sulfonamide Allergy Intermediate rash Verified 12/07/23 12:27 Antibiotics) Review of Systems Hematologic/Lymphatic On Anticoagulants: No Patient History Medical History History of COVID-19 (2019) Depression Spinal stenosis HTN (hypertension) Macular degeneration Dementia Rash (11/2023) Facet arthropathy, lumbar Lumbosacral radiculopathy Snoring Flexor hallucis longus tendonitis Hyponatremia Osteoporosis Internal hemorrhoids Surgical History Hx of bilateral cataract extraction Hx of dilation and curettage History of back surgery Social History household members: none Smoking Status: Never smoker alcohol intake: current Smoking Status: Never smoker alcohol intake frequency: holidays/special occasions only Substance Use Type: does not use Exam Initial Vital Signs Initial Vital Signs: Vital Signs Temperature 98.3 F 02/25/24 10:55 Pulse Rate 52 L 02/25/24 10:55 Respiratory Rate 19 02/25/24 10:55 Blood Pressure 192/93 H 02/25/24 10:55 Pulse Oximetry 100 02/25/24 10:55 Oxygen Delivery Method Room Air, Nasal Cannula 02/25/24 10:55 Scores NIH Stroke Scale Level of Conciousness: Alert, keenly responsive Ask month/age: Answers both questions correctly. Open/close eyes, close hand: Performs both tasks correctly Best gaze horizontal: Normal Visual morrison: No visual loss Facial palsy: Minor paralysis, flattened nasolabial fold, asymmetry on smiling Left arm drift: No drift for full 10 sec Right arm drift: No drift for full 10 sec Left leg drift: No drift for full 5 sec Right leg drift: No drift for full 5 sec Limb ataxia: Absent Sensory on face/arms/legs: Normal, no sensory loss Best language: No aphasia, normal Dysarthria: Normal Extinction or inattention: No abnormality Total NIH Stroke scale score: 1 Course Orders Ordered: ED Orders 02/25/24 10:[address] angio head and neck Stat 02/25/24 11:02 XR chest 1V Stat EKG-12 Lead Stat 02/25/24 11:17 Comprehensive Metabolic Panel Stat Ethanol (ETOH) Stat PTT Partial Thromboplastin Ki Stat Prothrombin Time INR Stat Troponin & CK Cardiac Panel Stat 02/25/24 11:30 COVID19 -Nasal RAPID Stat 02/25/24 11:44 Complete Blood Count AUTO DIFF Stat 02/25/24 11:59 Urinalysis and Microscopic Stat Urine Drug Screen, Rapid Stat Acetaminophen (Acetaminophen 325 Mg Tablet) 650 mg PO Q6H PRN PRN Reason: Fever/Mild Pain (1-3) Aspirin (Aspirin Ec 81 Mg Tablet) 81 mg PO DAILY RUDY Atorvastatin Calcium (Atorvastatin 20 Mg Tablet) 80 mg PO BEDTIME RUDY Clopidogrel Bisulfate (Clopidogrel 75 Mg Tablet) 75 mg PO DAILY RUDY Stop: 03/18/24 08:59 Enoxaparin Sodium (Enoxaparin 40 Mg/0.4 Ml Syringe) 40 mg SUBCUT DAILY RUDY Hydralazine HCl (Hydralazine 20 Mg/Ml Vial) 5 mg IV Q6HR PRN PRN Reason: Hypertension Last Admin: 02/25/24 18:00 Dose: 5 mg Documented By: ANISHA Naloxone HCl (Naloxone 0.4 Mg/Ml Vial) 0.2 mg IV Q2MIN PRN PRN Reason: Opiate Reversal Ondansetron HCl (Ondansetron 4 Mg/2 Ml Inj) 4 mg IV Q8HR PRN PRN Reason: Nausea And Vomiting Discontinued Medications Aspirin (Aspirin 81 Mg Chew Tab) 324 mg PO NOW ONE Stop: 02/25/24 13:08 Last Admin: 02/25/24 13:46 Dose: 324 mg Documented By: JACKSON Vital Signs Vital signs: Vital Signs - 8 hr 02/25/24 11:08 02/25/24 11:11 02/25/24 11:11 Pulse Rate 74 56 L Respiratory Rate 13 19 Blood Pressure 192/93 H Pulse Oximetry 99 Oxygen Delivery Method Room Air 02/25/24 11:30 02/25/24 11:30 02/25/24 12:07 Pulse Rate 54 L 52 L Respiratory Rate 16 26 H Blood Pressure 200/85 H Pulse Oximetry 99 Oxygen Delivery Method 02/25/24 12:10 02/25/24 12:10 02/25/24 12:30 Pulse Rate 51 L Respiratory Rate 18 Blood Pressure 189/83 H 181/83 H Pulse Oximetry 100 Oxygen Delivery Method 02/25/24 12:30 02/25/24 13:00 02/25/24 13:00 Pulse Rate 53 L 53 L Respiratory Rate 18 Blood Pressure 207/86 H Pulse Oximetry 99 99 Oxygen Delivery Method MDM - Neuro Symptoms/Deficit Lab Data 02/25/24 11:44 02/25/24 11:17 Labs: Lab Results 02/25/24 02/25/24 02/25/24 Range/Units 11:17 11:30 11:44 WBC 4.8 (4.5-11.0) X10^3/uL RBC 3.96 L (4.0-5.2) X10^6/uL Hgb 11.9 L (12.0-16.0) g/dL Hct 35.4 L (36-46) % MCV 89.3 (80-100) fL MCH 30.0 (26-34) PG MCHC 33.6 (30-36) % RDW 13.9 (11.6-14.8) % Plt Count 192 (150-400) X10^3/uL Neut % (Auto) 36.6 L (50-75) % Lymph % (Auto) 51.4 H (25-40) % [place] % (Auto) 9.3 (3-14) % Eos % (Auto) 0.8 L (2-4) % Baso % (Auto) 1.9 (0-2) % Neut # (Auto) 1800 (7637-4036) /uL Lymph # (Auto) 2500 (6260-2498) /uL [place] # (Auto) 400 (0-900) /uL Eos # (Auto) 0 (0-450) /uL Baso # (Auto) 100 (0-100) /uL PT 10.7 (9.4-12.5) SECONDS INR 0.9 (0.9-1.3) APTT 22 L (25.1-36.5) SECONDS Sodium 133 L (137-145) mmol/L Potassium 4.7 (3.4-5.1) mmol/L Chloride 104 (98-107) mmol/L Carbon Dioxide 24 (22-32) mmol/L BUN 10 (7-17) mg/dL Creatinine 0.52 (0.52-1.04) mg/dL Estimated GFR > 60 (>60) mL/min BUN/Creatinine Ratio 19.2 (6-22) Glucose 100 (80-110) mg/dL Calcium 8.5 (8.4-10.2) mg/dL Total Bilirubin 0.5 (0.2-1.3) mg/dL AST 35 (14-36) IU/L ALT 14 (<35) IU/L Alkaline Phosphatase 51 (38-126) U/L Total Creatine Kinase 57 (30-135) U/L Troponin I < 0.012 (0.01-0.034) ng/mL Total Protein 6.4 (6.3-8.2) g/dL Albumin 3.9 (3.5-5.0) g/dL Globulin 2.5 (1.7-4.1) g/dL Albumin/Globulin Ratio 1.6 (1.0-2.8) Urine Color Urine Appearance Urine pH (4.5-8.0) Ur Specific Coleman (1.000-1.035) Urine Protein (Negative) Urine Glucose (UA) (Negative) g/dL Urine Ketones (NEGATIVE) Urine Occult Blood (Negative) Urine Nitrate (Negative) Urine Bilirubin (NEGATIVE) Urine Urobilinogen (0.2) E.U./dL Ur Leukocyte Esterase (NEGATIVE) Urine RBC (0-5/HPF) Urine WBC (0-5/HPF) Ur Squamous Epith Cells (0-5/HPF) Urine Bacteria (None) Ur Culture Indicated? Vol Urine Centrifuged U Opiates 300ng/mL cut (Negative) Ur Oxycodone Screen (Negative) Urine Methadone Screen (Negative) Ur Barbiturates Screen (Negative) U Tricyclic Antidepress (Negative) Ur Phencyclidine Scrn (Negative) Ur Amphetamines Screen (Negative) U Methamphetamines Scrn (Negative) Ur MDMA Scrn (Ecstasy) (Negative) U Benzodiazepines Scrn (Negative) Urine Cocaine Screen (Negative) U Marijuana (THC) Screen (Negative) Urine Specific Coleman (Normal) Ethyl Alcohol < 10 ( - 10) mg/dL Ur Creatinine (Normal) SARS-CoV-2 (PCR) Negative (Negative) 02/25/24 02/25/24 Range/Units 11:59 11:59 WBC (4.5-11.0) X10^3/uL RBC (4.0-5.2) X10^6/uL Hgb (12.0-16.0) g/dL Hct (36-46) % MCV (80-100) fL MCH (26-34) PG MCHC (30-36) % RDW (11.6-14.8) % Plt Count (150-400) X10^3/uL Neut % (Auto) (50-75) % Lymph % (Auto) (25-40) % [place] % (Auto) (3-14) % Eos % (Auto) (2-4) % Baso % (Auto) (0-2) % Neut # (Auto) (4267-8921) /uL Lymph # (Auto) (3353-7849) /uL [place] # (Auto) (0-900) /uL Eos # (Auto) (0-450) /uL Baso # (Auto) (0-100) /uL PT (9.4-12.5) SECONDS INR (0.9-1.3) APTT (25.1-36.5) SECONDS Sodium (137-145) mmol/L Potassium (3.4-5.1) mmol/L Chloride (98-107) mmol/L Carbon Dioxide (22-32) mmol/L BUN (7-17) mg/dL Creatinine (0.52-1.04) mg/dL Estimated GFR (>60) mL/min BUN/Creatinine Ratio (6-22) Glucose (80-110) mg/dL Calcium (8.4-10.2) mg/dL Total Bilirubin (0.2-1.3) mg/dL AST (14-36) IU/L ALT (<35) IU/L Alkaline Phosphatase (38-126) U/L Total Creatine Kinase (30-135) U/L Troponin I (0.01-0.034) ng/mL Total Protein (6.3-8.2) g/dL Albumin (3.5-5.0) g/dL Globulin (1.7-4.1) g/dL Albumin/Globulin Ratio (1.0-2.8) Urine Color Yellow Urine Appearance Clear Urine pH 6.5 Normal (4.5-8.0) Ur Specific [place] <=1.005 (1.000-1.035) Urine Protein Negative (Negative) Urine Glucose (UA) Negative (Negative) g/dL Urine Ketones Negative (NEGATIVE) Urine Occult Blood Negative (Negative) Urine Nitrate Negative (Negative) Urine Bilirubin Negative (NEGATIVE) Urine Urobilinogen 0.2 (0.2) E.U./dL Ur Leukocyte Esterase Negative (NEGATIVE) Urine RBC None seen (0-5/HPF) Urine WBC None seen (0-5/HPF) Ur Squamous Epith Cells None seen (0-5/HPF) Urine Bacteria None seen (None) Ur Culture Indicated? Cult not indicated Vol Urine Centrifuged 10ml (spun) U Opiates 300ng/mL cut Negative (Negative) Ur Oxycodone Screen Negative (Negative) Urine Methadone Screen Negative (Negative) Ur Barbiturates Screen Negative (Negative) U Tricyclic Antidepress Negative (Negative) Ur Phencyclidine Scrn Negative (Negative) Ur Amphetamines Screen Negative (Negative) U Methamphetamines Scrn Negative (Negative) Ur MDMA Scrn (Ecstasy) Negative (Negative) U Benzodiazepines Scrn Negative (Negative) Urine Cocaine Screen Negative (Negative) U Marijuana (THC) Screen Negative (Negative) Urine Specific [place] Normal (Normal) Ethyl Alcohol ( - 10) mg/dL Ur Creatinine Normal (Normal) SARS-CoV-2 (PCR) (Negative) Point of Care Testing Glucose POC 87 Urine Dip Bedside Urine Glucose Negative Bedside Urine Bilirubin - Negative Bedside Urine Ketone - Negative Urine Specific [place] 1.005 Bedside Urine Occult Blood - Negative Bedside Urine pH 7.0 Bedside Urine Protein - Negative Bedside Urine Urobilinogen - Negative Bedside Urine Nitrite - Negative Bedside Urine Leukocytes - Negative Esterase Imaging Data CT scan - head: Radiologist's Impression: PROCEDURE: CT STROKE INDICATIONS: slurred speech TECHNIQUE: Noncontrast 4.5 mm thick angled axial sections acquired from the foramen magnum to the vertex, with coronal reformats. For radiation dose reduction, the following was used: automated exposure control, adjustment of mA and/or kV according to patient size. COMPARISON: None. FINDINGS: Image quality: Diagnostic. CSF spaces: Basal cisterns are patent. No extra-axial fluid collections. Ventricles are normal in size and shape. Brain: No midline shift. No intracranial masses or hemorrhage. Yanez-white matter interface is normal. Skull and face: Calvarium and visualized facial bones are intact, without suspicious lesions. Sinuses: Visualized sinuses and mastoids are clear. IMPRESSION: No acute intracranial pathology. Findings discussed with Dr. Layne at 11:05 a.m. On 02/25/2024. This study fulfills neurological imaging criteria for inclusion or exclusion of acute stroke therapies based on available published neurological imaging guidelines. Dictated by: Javan Keenan M.D. on 02/25/2024 at 11:04 CTA - brain/neck: Radiologist's Impression: PROCEDURE: CT ANGIO HEAD AND NECK INDICATIONS: slurred speech TECHNIQUE: After the administration of intravenous contrast, 1 mm thick sections acquired from the aortic arch through the [place] [facility] [place]. 3-dimensional sipasgw-ixwloefjn-vpigmdkeur (MIP) and/or volume rendering reformats were acquired of the central intracranial vasculature and neck separately. For radiation dose reduction, the following was used: automated exposure control, adjustment of mA and/or kV according to patient size. COMPARISON: None. FINDINGS: Image quality: Diagnostic. BRAIN: CSF spaces: Ventricles are normal in size and shape. Basal cisterns are patent. No extra-axial fluid collections. Brain: No significant abnormality of the brain can be seen. Skull and face: Calvarium and facial bones appear intact, without suspicious lesions. Orbits appear normal. Sinuses: Sinuses and mastoids are clear. HEAD CT ANGIOGRAPHY: Anterior circulation: Intracranial internal carotid arteries are normal in size and flow. The flow within the paired anterior cerebral arteries is normal and symmetric. The flow within the middle cerebral arteries is normal and symmetric. The anterior communicating artery is seen. There is a 2 x 3 millimeter saccular aneurysm extending off the inferior margin of the left M1 segment (series 5, image 99 and series 4, image 116). Posterior circulation: Visualized portions of the vertebral arteries demonstrate normal caliber, and join to form a normal appearing basilar artery. Flow within the posterior cerebral arteries is normal and symmetric. No aneurysms are seen. NECK CT ANGIOGRAPHY: Carotid system: The great vessels demonstrate a conventional anatomy as they arise from the aortic arch. The origins of the common carotid arteries appear patent. The common carotid arteries demonstrate normal caliber and courses. The bifurcation regions are both widely patent. The internal carotid arteries demonstrate normal calibers and courses. Posterior circulation: The origins of the vertebral arteries both appear widely patent. The more superior extracranial portions of both vertebral arteries also demonstrate normal courses and calibers. They join to form a normal appearing basilar artery. Soft tissues: Visualized neck soft tissues demonstrate no suspicious abnormalities. Bones: No suspicious bony lesions. Visualized cervical spine appears normally aligned. IMPRESSION: No large vessel occlusion. 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 No evidence of rupture. Any quantitative measurements of stenosis were performed using NASCET criteria. Dictated by: Javan Keenan M.D. on 02/25/2024 at 11:18 Chest x-ray: Radiologist's Impression: PROCEDURE: XR CHEST 1V INDICATIONS: stroke TECHNIQUE: One view of the chest was acquired. COMPARISON: None. FINDINGS: Surgical changes and devices: None. Lungs and pleura: Lungs are clear. No pleural effusions or pneumothorax. Mediastinum: Mediastinal contours appear normal. Heart size is normal. Bones and chest wall: No suspicious bony lesions. Overlying soft tissues appear unremarkable. IMPRESSION: No acute cardiopulmonary abnormality is seen. Dictated by: Javan Keenan M.D. on 02/25/2024 at 11:15 ECG Data Attestation: I personally reviewed and interpreted this ECG as follows: Prior ECG tracings: available for review Interpretation: Normal sinus rhythm rate 51 IN interval 166 QRS 80 QTC 381 T-wave inversion noted in lead 3 only similar to previous EKGs in 2022 no new changes MDM Narrative Medical decision making narrative: Patient 78-year-old female history of mild dementia presents today concern for stroke. She is noted to be mildly confused. On exam her symptoms actually are improving but she does have persistent right-sided facial droop giving her an NIH stroke scale of 1. Blood work has been reviewed: No significant leukocytosis anemia electrolyte abnormality or JAYASHREE troponin is negative Imaging has been reviewed she is found to have a 3 x 2 mm cerebral aneurysm. She is asymptomatic and this is likely an incidental finding. She has no obvious evidence of rupture hemorrhage. There is no indication for acute intervention but will definitely need outpatient monitoring. No cause of stroke mimics including hypoglycemia hyponatremia or electrolyte abnormality Family is at bedside reports that she has a little bit off definitely states that the right-sided facial droop is new. Concern for acute ischemic CVA. Dr. Torres accepts patient Discharge Plan Departure Patient Disposition: Admitted As Inpatient Clinical Impression: CVA (cerebral vascular accident) Admit Date/Time: 02/25/24 13:29 Admit Provider: Jose Torres
[2024-02-25 12:08] LABS: Ur Creatinine Normal (Normal); Ur Specific Gravity Normal (Normal); Urine Amphetamines Negative (Negative); Urine Barbiturates Negative (Negative); Urine Benzodiazepines Negative (Negative); Urine Cocaine Negative (Negative); Urine MDMA Negative (Negative); Urine Methadone Negative (Negative); Urine Methamphetamines Negative (Negative); Urine Opiates Negative (Negative); Urine Oxycodone Negative (Negative); Urine Phencyclidine Negative (Negative); Urine THC Negative (Negative); Urine Tricyclic Antidepressant Negative (Negative); Urine pH Normal (Normal)
[2024-02-25 12:13] LABS: Appearance Urine UA CLEAR; Bilirubin Urine UA NEGATIVE (NEGATIVE); Color Urine UA YELLOW; Glucose Urine UA NEGATIVE (Negative); Ketones Urine UA NEGATIVE (NEGATIVE); Leukocyte Esterase Urine UA NEGATIVE (NEGATIVE); Nitrite Urine UA NEGATIVE (Negative); Occult Blood Urine UA NEGATIVE (Negative); Protein Urine UA NEGATIVE (Negative); Specific Gravity Urine UA <=1.005 (1.000-1.035); Urobilinogen Urine UA 0.2 E.U./dL (0.2)
[2024-02-25 12:13] LABS: Troponin I < 0.012 ng/mL (0.01-0.034)
[2024-02-25 12:14] LABS: pH Urine UA 6.5 (4.5-8.0)
[2024-02-25 12:16] LABS: Bacteria Urine None Seen; Culture Indicated Urine Cult Not Indicated; RBC Urine None Seen (0-5/HPF); Squamous Epithelial Cell Urine None Seen (0-5/HPF); Urine Volume 10mL (spun); WBC Urine None Seen (0-5/HPF)
--- NOTE | 2024-02-25 13:41 | DI.MRI.S_ITS ---
PROCEDURE: MR HEAD/BRAIN WO CON INDICATIONS: slurred speech, CVA TECHNIQUE: Noncontrast axial T1 spin echo, axial T2 fast spin echo, sagittal and axial FLAIR, coronal T2 fast spin echo, axial gradient echo, axial diffusion and ADC through the brain. COMPARISON: [facility], CT, CT ANGIO HEAD AND NECK, 02/25/2024, 11:02. [facility], MR, MR HEAD/BRAIN WO CON, 04/22/2023, 17:06. FINDINGS: Image quality: Excellent. CSF Spaces: Basal cisterns are patent. No extra-axial fluid collections. Ventricles are normal in size and shape. Brain: There is mild restricted diffusion in the left basal ganglia measuring 1.25 cm. No intracranial masses or hemorrhage. Brainstem appears normal. Normal intravascular flow voids are present. Moderate underlying atrophy and multifocal white matter chronic ischemic change present. Skull and face: Calvarium has normal marrow signal. Orbits appear normal. Bilateral intraocular lens replacements noted. Sinuses: Sinuses and mastoids are clear. IMPRESSION: Subacute left basal ganglia infarct. No mass effect or midline shift. Underlying moderate atrophy and white matter chronic ischemic change Approved by: Yosi Bridges M.D. on 02/25/2024 at 14:30
[2024-02-25] MEDS: ASPIRIN 81 MG CHEW TAB 324 MG PO (13:46)
--- NOTE | 2024-02-25 13:52 | PC.NURSE ---
Pt and family report pt took her scheduled bp meds this morning; and is not due for another dose until this evening.
--- NOTE | 2024-02-25 14:55 | DI.ECHO.S_ITS ---
[facility] : : [address] : : [place] : : [id number] : : Phone: [phone] Echocardiogram Report + + :Name: SABRINA HARDY Study Date: 02/25/2024 Height: 63 in : :[facility] ReadingLocation: Weight: 153 lb : : Gender: Female BSA: 1.7 m2 : :: 1945 Age: 78 yrs BP: 194/78 mmHg: :Reason For Study: CVA : :Ordering Physician: CARMEN, : :MIGUEL BASILIO Performed By: Marlee Freeman : :Referring: MIGUEL MORALES : + + Interpretation Summary The ejection fraction is estimated to be 60-65%. Diastolic parameters suggest probable normal left ventricular diastolic function and normal filling pressures. The right ventricle is normal in size and function. There is no Doppler evidence for an interatrial shunt. There is mild mitral regurgitation. Procedure: A two-dimensional transthoracic echocardiogram with color flow and Doppler was performed. The study quality was technically adequate. There is no prior echocardiogram noted for this patient. The patient was in sinus bradycardia with heart rates between 51-65 bpm during the exam. Left Ventricle: Proximal septal thickening is noted. The left ventricle is normal in size. The ejection fraction is estimated to be 60-65%. There are no obvious focal wall motion abnormalities noted but poor endocardial definition reduces the sensitivity for the detection of such. Diastolic parameters suggest probable normal left ventricular diastolic function and normal filling pressures. Right Ventricle: The right ventricle is normal in size and function. Atria: The left atrial size is normal. Right atrial size is normal. There is no Doppler evidence for an interatrial shunt. Mitral Valve: The mitral valve is normal in structure and function. There is mild mitral annular calcification. There is mild mitral regurgitation. Aortic Valve: The aortic valve is trileaflet. The aortic valve opens well. There is no aortic valve stenosis. There is no hemodynamically significant valvular aortic stenosis. There is trace aortic regurgitation. Tricuspid Valve: The tricuspid valve is normal in structure and function. There is mild tricuspid regurgitation. Pulmonary artery pressures cannot be estimated because of the lack of a measurable TR jet velocity. Pulmonic Valve: The pulmonic valve leaflets are thin and pliable; valve motion is normal. There is trace pulmonic regurgitation. Great Vessels: The aortic root is normal size. The dimensions of the ascending aorta are normal. The IVC is dilated (diameter is greater than 2.1 cm) yet it collapses greater than 50% with a sniff. This suggests a right atrial pressure of 8 mm Hg. Pericardium/ Pleura There is no pericardial effusion. There is no pleural effusion. MMode/2D Measurements & Calculations LVIDd: 5.0 cm LVOT diam: 2.0 cm LVIDs: 3.2 cm Ao root diam: 2.7 cm FS: 37.0 % asc Aorta Diam: 3.0 cm IVSd: 1.0 cm Ao Arch Diam (Prox Trans): 2.2 cm LVPWd: 1.0 cm LV tavares. diameter/BSA (cm/m^2): 2.9 LV sys. diameter/BSA (cm/m^2): 1.8 LA A2 area: 22.0 cm2 RA long axis: 4.5 cm LA A4 area: 14.9 cm2 RA area: 14.4 cm2 LA length (vol): 5.0 cm RA vol: 39.1 ml LA vol: 55.5 ml RA : 22.7 ml/m2 LA vol index: 32.2 ml/m2 IVC diam: 2.2 cm RVD1 (basal): 3.4 cm RVD2 (mid): 2.5 cm TAPSE: 2.1 cm Doppler Measurements & Calculations Ao V2 max: 187.0 cm/sec LVOT Max Tano: 112.4 cm/sec Ao V2 mean: 137.4 cm/sec LV V1 max P.1 mmHg Ao max P.0 mmHg LV V1 VTI: 25.6 cm Ao mean P.1 mmHg OLU(I,D): 1.7 cm2 Ao V2 VTI: 47.1 cm OLU(V,D): 1.9 cm2 sev ratio: 0.54 OLU indexed to BSA (cm^2/m^2): 0.97 MV E max tano: 99.3 cm/sec PA V2 max: 104.8 cm/sec MV A max tano: 87.8 cm/sec PA V2 mean: 79.7 cm/sec MV E/A: 1.1 PA mean P.7 mmHg Med Peak E' Tano: 7.4 cm/sec PA pr(Accel): 20.8 mmHg E/E' med: 13.5 Lat Peak E' Tano: 10.4 cm/sec E/E' lat: 9.6 E/e' average: 11.5 MV dec time: 0.20 sec [facility].1 ml Reading Physician:PM
--- NOTE | 2024-02-25 17:04 | OT.IP.EVAL ---
Past Medical History (Last Updated 12/03/23 @ 09:18 by Annel Schmidt RN) Dementia Depression Facet arthropathy, lumbar Flexor hallucis longus tendonitis History of COVID-19 (2019) HTN (hypertension) Hyponatremia Internal hemorrhoids Lumbosacral radiculopathy Macular degeneration Osteoporosis Rash (11/2023) Snoring Spinal stenosis Surgical History (Last Updated 12/03/23 @ 09:18 by Annel Schmidt RN) History of back surgery Hx of bilateral cataract extraction Hx of dilation and curettage Occupational Therapy Inpatient Evaluation/Re-Eval M1 PT/OT-IP Prior Functional Status Start: 02/25/24 17:14 Freq: NEEDED Status: Active Protocol: Document 02/25/24 17:14 [facility] (Rec: 02/25/24 17:41 [facility] [id number]) Medical Review Prior Functional Status Mobility and Gait Pt states did not use a device to walk with. Activities of Daily Living and IADL's Pt states was completely independent with all her ADL need and had a caregiver to assist for IADL needs (transportation, shopping, and cleaning ) and there to keep her company. Prior Functional Level (Other details) Prior to this hospitalization, pt's daughter planning on her mother moving to assisted living. Social History Household Members none Living Arrangements House Number of Stairs To Enter/Railing? 1 platform step to enter the house. Home Environment Walk in Shower,Tub/Shower Home Equipment Four Wheel Walker,Straight Cane,Shower Seat without Backrest,Hand Held Shower M2 OT-IP Current Condition Start: 02/25/24 17:14 Freq: Status: Active Protocol: Document 02/25/24 17:14 [facility] (Rec: 02/25/24 17:41 [facility] [id number]) Occupational Therapy Current Condition Current Condition Evaluation Date 02/25/24 Treatment Diagnosis CVA Diagnosis Onset Date 02/25/24 Post Operative Precautions Lumbar Precautions Log Roll,No Twisting,Limit Bending,Lifting Restriction of 10 lbs,Gait Belt above Incisional Area Other Precautions Pt states still has been following her back precautions as just had back surgery 12/26 M3 OT- IP Subjective and Pain Start: 02/25/24 17:14 Freq: Status: Active Protocol: Document 02/25/24 17:14 [facility] (Rec: 02/25/24 17:41 [facility] [id number]) OT- Subjective Occupational Therapy Visit Type Type Initial Evaluation Visit Start Time 15:55 Visit Stop Time 17:06 Occupational Therapy Visit Comments Patient Comments Pt agreed to do OT eval. Pt's daughter present in the room. OT Pain Assessment Pain When Pain Assessed At Rest Pain Present Pain Present Denied Pain M4 OT- IP ADL's Start: 02/25/24 17:14 Freq: Status: Active Protocol: Document 02/25/24 17:14 [facility] (Rec: 02/25/24 17:41 [facility] [id number]) OT LWV-Mzog-Szorhnj Comments OT Self-Feeding Comments Not at meal time. Pt will need to have assist to cut her food and use of larger utensil would be best. OT ADL-Grooming Comments OT Grooming Comments Pt able to wash her hands at the sink after set-up. OT ADL-Oral Care Comments Oral Care Comments Not performed. OT ADL-Dressing General Eval Lower Body Dressing Ability Minimal Assistance Comments OT Dressing Comments Pt able to black/doff her socks while seated and use of left hand more than her right. Pt is right hand dominant. Pt states at times stand to get dressed. Santos for brief management. Having to point out to pt to be sure to get her right heel into her shoe, as it was not completely all the way on. OT ADL-Toileting General Evaluation Toileting Ability Contact Guard Assistance Areas Needing Assistance Manage Clothing Comments OT Toileting Comments Assist to help pull down the brief on the right side. OT ADL-Bathing Comments OT Bathing Comments Not performed. Pt will benefit from a shower chair and assist. M5 OT- IP IADL's Start: 02/25/24 17:14 Freq: Status: Active Protocol: Document 02/25/24 17:14 [facility] (Rec: 02/25/24 17:41 [facility] [id number]) OT-Instrumental Activities of Daily Living Deficits IADL Deficits Identified Deficits Home Safety Awareness Awareness of Need for Assistance at Home Decreased Awareness Ability to Problem Solve Emergency Able to Problem Solve Situations Medication Management Medication Management Comments Pt uses blister packs for medications at home. Money Management Money Management Caregiver Provides Assistance [employer] Sales Engineer [employer] Sales Engineer Caregiver Provides Assist Driving Driving Comments Pt states that she can drive but that her family does not want her to drive. M6 OT- IP Functional Cognition Start: 02/25/24 17:14 Freq: Status: Active Protocol: Document 02/25/24 17:14 [facility] (Rec: 02/25/24 17:41 [facility] [id number]) Cognitive Factors Limiting Selfcare Function Cognitive Ability Level of Alertness Alert Patient Orientation Name,Age,Year,Place,Situation Attention Span Ability Capable of Focused Attention, Capable of Sustained Attention Ability to Follow Commands Able to Follow One Step Commands with Increased Time, Able to Follow One Step Commands with Repetition Memory Description Short Term Impaired,Working Impaired Safety Awareness Underestimates Need for Assistance Executive Function Ability Unable to Remember Details Cognitive Tests SLUMS Pt scored 17/30 which implies dementia. Pt not able to subtract 100-23, able to recall 14 animal in one minute , able to recall 3/5 words after time passed, not able to draw the numbers on the clock or hour hands after time passed, able to answer 2/4 questions right after paragraph read. Cognitive Comments Cognitive Assessment Comments Pt needing increased time to comprehend question, slurred speech and having difficulty to get her words out at times, especailly when pt getting frustrated. Pt was able to answer all home safety questions accurately except that she would dial 411 in case of an emergency. Pt well aware now that she will not be driving. Questionable if pt is a bit hard of hearing and questions having to be repeated or just having difficulty with comprehension. OT- Vision and Hearing OT- Hearing Assessment OT- Hearing Assessment Hearing Impaired OT- Vision Assessment Visual Acuity Glasses All The Time,Glasses For Reading Visual Spacial Neglect Right Vision Assessment Comments TO test vision tomorrow. M7 OT- IP Mobility and Balance Start: 02/25/24 17:14 Freq: Status: Active Protocol: Document 02/25/24 17:14 [facility] (Rec: 02/25/24 17:41 [facility] [id number]) OT- Bed Mobility Assessment Supine to Sit Supine to Sit Assist Standby Assistance Sit to Supine Sit to Supine Assist Standby Assistance OT-Transfer Assessment Sit to and From Stand Sit to and from Stand Contact Guard Assistance, Minimal Assistance Transfers Transfer Ability Contact Guard Assistance, Minimal Assistance Technique Transfer Destination Bed,Toilet Transfer Technique Stand Step Pivot Devices Transfer Assistive Devices None,Gait Belt,Front Wheeled Walker Comments Mobility Comments Pt without a device tends to lean to the right and at times slight loss of balance and needing OT to assist. Pt will be much safer to use a FWW at this time. Pt needing SANTOS without her shoes on and CGA with shoes on for her balance. OT- Balance Assessment Sitting Balance and Reactions Static Sitting Balance Ability Good Dynamic Sitting Balance Ability Good Standing Balance and Reactions Static Standing Balance Ability Fair Dynamic Standing Balance Ability Poor M8 OT- IP Objective Assessments Start: 02/25/24 17:14 Freq: Status: Active Protocol: Document 02/25/24 17:14 [facility] (Rec: 02/25/24 17:41 [facility] [id number]) OT Gross Range of Motion Upper Extremity Range of Motion Assessment Within Functional Limits OT Strength Comments Strength Comments NT at shoulder due to recent back sx, right hand steel erector slightly weaker than left side .Pt is right hand dominant. OT- Coordination Assessment Upper Extremity Finger to Nose Test Right UE Impaired Finger Tapping Test Right UE Impaired Comments Coordination Comments Pt having trouble with FMS, coordination and strength with right hand. Pt not able to write at this time. OT Sensation Assessment Comments Summary Comments Intact for light touch. M9 OT- IP Assessment and Plan Start: 02/25/24 17:14 Freq: Status: Active Protocol: Document 02/25/24 17:14 [facility] (Rec: 02/25/24 17:41 [facility] [id number]) OT Summary Assessment and Plan Potential Rehabilitation Potential Good Analytic Complexity at Evaluation Moderate Summary OT Impairments Strength,Balance,Coordination, Functional Cognition, Functional Mobility,Self- Feeding,Grooming,Dressing, Toileting,Bathing,Toilet Transfers,Shower Transfers, Activity Tolerance Progress Towards Goals Progressing Toward Goals Assessment Summary Pt MOD complexity and main barriers are decreased dynamic balance, decreased smoothing- coordination on right hand, having difficulty with problem solving and memory. Pt scored 17/30 on the SLUMS which implies dementia, however pt also had a CVA which could also be affecting her cognition. Pt is very determined and motivated to get better. Pt would benefit from acute rehab. Pt's daughter prior to CVA was in the process of moving pt to an assisted living facility due to decline in cognition needs. Goals Self-Feeding Goal Standby Assistance Grooming Goal Standby Assistance Dressing Goal Standby Assistance Toileting Goal Standby Assistance Bathing Goal Standby Assistance Toilet Transfer Goal Standby Assistance Shower Transfer Goal Standby Assistance OT-Other Goals Goals based on incorporation of her right hand for all ADl and mobility needs. Days to Meet Goals 15 Frequency of Treatment Frequency Of Treatment Once a Day Treatment Plan OT Treatment Plan ADL Training,Functional Cognition Training,Functional Mobility,Neuromuscular Re- education,Patient/Family Education,Discharge Planning Discharge Recommendations OT Discharge Recommendations Acute Rehab Transportation Needs at Discharge Private Vehicle
--- NOTE | 2024-02-25 17:48 | P.HP_ITS ---
History of Present Illness History of Present Illness Date Patient Seen: 02/25/24 Time Patient Seen: 17:48 Chief complaint: Code Stroke Narrative: 78 F with PMH of HTN, cognitive impairment who presented after noticing this morning with her color coater that she was having difficulty speaking and finding words. This started around 9-10 AM. She denied any numbness, tingling or numbness at the time that she noticed. In the ER she was hypertensive, but had only NIH of 1 at that time. Stroke service was not called. She was given full dose aspirin and admitted for presumed TIA vs stroke. Upon my evaluation she had difficulty coordinating with her R hand, which was weak especially given she is normally R handed. Speech remained about the same and unchanged. MR done shortly after admission showed a subacute L infarct. [facility] Medical History History of COVID-19 (2019) Depression Spinal stenosis HTN (hypertension) Macular degeneration Dementia Rash (11/2023) Facet arthropathy, lumbar Lumbosacral radiculopathy Snoring Flexor hallucis longus tendonitis Hyponatremia Osteoporosis Internal hemorrhoids Surgical History Hx of bilateral cataract extraction Hx of dilation and curettage History of back surgery Social History household members: none Smoking Status: Never smoker alcohol intake: current Meds Home Medications and Allergies Home Medications Medication Instructions Recorded Confirmed Type acetaminophen 650 mg 650 mg PO BID pain #60 tabs 01/27/24 02/25/24 Rx tablet,extended release (Pain Relief (acetaminophen)) alendronate 70 mg tablet 70 mg PO .once weekly/sundays #4 01/27/24 02/25/24 Rx tabs cholecalciferol (vitamin D3) 50 50 mcg PO DAILY #30 caps 01/27/24 02/25/24 Rx mcg (2,000 unit) capsule donepezil 10 mg tablet 10 mg PO QPM #30 tabs 01/27/24 02/25/24 Rx gabapentin 300 mg capsule 300 mg PO BID #60 caps 01/27/24 02/25/24 Rx lisinopril 20 mg tablet 20 mg PO DAILY for blood pressure 01/27/24 02/25/24 Rx #30 tabs Allergies Allergy/AdvReac Type Severity Reaction Status Date / Time Sulfa (Sulfonamide Allergy Intermediate rash Verified 12/07/23 12:27 Antibiotics) Review of Systems Review of Systems Narrative: All other systems reviewed with the patient and are negative unless otherwise stated. Exam Vital Signs (past 8 hours): - 02/25/24 10:55 02/25/24 11:08 02/25/24 11:11 Temperature 98.3 F Pulse Rate 52 L 74 Respiratory Rate 19 13 Blood Pressure 192/93 H 192/93 H Pulse Oximetry 100 Oxygen Delivery Method Room Air Nasal Cannula Oxygen Flow Rate 02/25/24 11:11 02/25/24 11:30 02/25/24 11:30 Temperature Pulse Rate 56 L 54 L Respiratory Rate 19 16 Blood Pressure 200/85 H Pulse Oximetry 99 99 Oxygen Delivery Method Room Air Oxygen Flow Rate 02/25/24 12:07 02/25/24 12:10 02/25/24 12:10 Temperature Pulse Rate 52 L 51 L Respiratory Rate 26 H 18 Blood Pressure 189/83 H Pulse Oximetry 100 Oxygen Delivery Method Oxygen Flow Rate 02/25/24 12:30 02/25/24 12:30 02/25/24 13:00 Temperature Pulse Rate 53 L Respiratory Rate Blood Pressure 181/83 H 207/86 H Pulse Oximetry 99 Oxygen Delivery Method Oxygen Flow Rate 02/25/24 13:00 02/25/24 13:30 02/25/24 13:34 Temperature Pulse Rate 53 L 54 L Respiratory Rate 18 18 Blood Pressure Pulse Oximetry 99 99 Oxygen Delivery Method Room Air Oxygen Flow Rate 02/25/24 13:43 02/25/24 13:43 02/25/24 14:00 Temperature Pulse Rate 56 L 50 L Respiratory Rate 15 13 Blood Pressure 210/92 H Pulse Oximetry 96 99 Oxygen Delivery Method Oxygen Flow Rate 02/25/24 14:01 02/25/24 14:01 02/25/24 14:37 Temperature 98.3 F Pulse Rate 51 L Respiratory Rate Blood Pressure 197/88 H Pulse Oximetry 100 Oxygen Delivery Method Oxygen Flow Rate 02/25/24 14:55 Temperature Pulse Rate Respiratory Rate Blood Pressure Pulse Oximetry 95 Oxygen Delivery Method Room Air Oxygen Flow Rate 0 Oxygen Delivery Method Room Air Oxygen Flow Rate 0 Narrative Exam Narrative: General:? Patient is well developed and well nourished, in no distress at this time. HEENT:? Normocephalic, atraumatic, extraocular muscles intact, oral pharynx is clear and mucous membranes are moist. Neck: supple and symmetric, trachea is midline, no cervical adenopathy. Negative for JVD Chest:? Normal AP diameter and contour without kyphoscoliosis, no tachypnea, equal chest rise bilaterally. Lungs:? CTA b/l no wheezing rhonchi or rales. Cardio:?RRR no m/r/g. Abdomen: S NT ND. Musculoskeletal:? Muscle strength and tone are equal within normal limits, no deformity. Extremities: No edema or joint effusions. No cyanosis or clubbing. Skin:? Pale,? Warm to touch,dry and intact without rashes, ulcerations or petechiae.? Neuro:? Alert and orientated x3,?possible mild L facial droop, improved with smile. R hand notably weak, no sensory deficits per patient to light touch. Finger to nose slow and not accurate. rapid alternating movements are not smooth nor coordinated. Speech is clear but patient appears effortful with her speech and is slower and less accurate per daughter. Psych:? Patient has a well-kept appearance, appropriate affect, mental status attitude thought context and judgment are appropriate for age. Objective Labs 02/25/24 11:44 02/25/24 11:17 Labs: Laboratory Results - last 24 hr 02/25/24 02/25/24 02/25/24 11:17 11:30 11:44 WBC 4.8 RBC 3.96 L Hgb 11.9 L Hct 35.4 L MCV 89.3 MCH 30.0 MCHC 33.6 RDW 13.9 Plt Count 192 Neut % (Auto) 36.6 L Lymph % (Auto) 51.4 H [place] % (Auto) 9.3 Eos % (Auto) 0.8 L Baso % (Auto) 1.9 Neut # (Auto) 1800 Lymph # (Auto) 2500 [place] # (Auto) 400 Eos # (Auto) 0 Baso # (Auto) 100 PT 10.7 INR 0.9 APTT 22 L Sodium 133 L Potassium 4.7 Chloride 104 Carbon Dioxide 24 BUN 10 Creatinine 0.52 Estimated GFR > 60 BUN/Creatinine Ratio 19.2 Glucose 100 Calcium 8.5 Total Bilirubin 0.5 AST 35 ALT 14 Alkaline Phosphatase 51 Total Creatine Kinase 57 Troponin I < 0.012 Total Protein 6.4 Albumin 3.9 Globulin 2.5 Albumin/Globulin Ratio 1.6 Urine Color Urine Appearance Urine pH Ur Specific [place] Urine Protein Urine Glucose (UA) Urine Ketones Urine Occult Blood Urine Nitrate Urine Bilirubin Urine Urobilinogen Ur Leukocyte Esterase Urine RBC Urine WBC Ur Squamous Epith Cells Urine Bacteria Ur Culture Indicated? Vol Urine Centrifuged U Opiates 300ng/mL cut Ur Oxycodone Screen Urine Methadone Screen Ur Barbiturates Screen U Tricyclic Antidepress Ur Phencyclidine Scrn Ur Amphetamines Screen U Methamphetamines Scrn Ur MDMA Scrn (Ecstasy) U Benzodiazepines Scrn Urine Cocaine Screen U Marijuana (THC) Screen Urine Specific [place] Ethyl Alcohol < 10 Ur Creatinine SARS-CoV-2 (PCR) Negative 02/25/24 02/25/24 11:59 11:59 WBC RBC Hgb Hct MCV MCH MCHC RDW Plt Count Neut % (Auto) Lymph % (Auto) [place] % (Auto) Eos % (Auto) Baso % (Auto) Neut # (Auto) Lymph # (Auto) [place] # (Auto) Eos # (Auto) Baso # (Auto) PT INR APTT Sodium Potassium Chloride Carbon Dioxide BUN Creatinine Estimated GFR BUN/Creatinine Ratio Glucose Calcium Total Bilirubin AST ALT Alkaline Phosphatase Total Creatine Kinase Troponin I Total Protein Albumin Globulin Albumin/Globulin Ratio Urine Color Yellow Urine Appearance Clear Urine pH 6.5 Normal Ur Specific [place] <=1.005 Urine Protein Negative Urine Glucose (UA) Negative Urine Ketones Negative Urine Occult Blood Negative Urine Nitrate Negative Urine Bilirubin Negative Urine Urobilinogen 0.2 Ur Leukocyte Esterase Negative Urine RBC None seen Urine WBC None seen Ur Squamous Epith Cells None seen Urine Bacteria None seen Ur Culture Indicated? Cult not indicated Vol Urine Centrifuged 10ml (spun) U Opiates 300ng/mL cut Negative Ur Oxycodone Screen Negative Urine Methadone Screen Negative Ur Barbiturates Screen Negative U Tricyclic Antidepress Negative Ur Phencyclidine Scrn Negative Ur Amphetamines Screen Negative U Methamphetamines Scrn Negative Ur MDMA Scrn (Ecstasy) Negative U Benzodiazepines Scrn Negative Urine Cocaine Screen Negative U Marijuana (THC) Screen Negative Urine Specific [place] Normal Ethyl Alcohol Ur Creatinine Normal SARS-CoV-2 (PCR) Assessment & Plan Assessment & Plan narrative: 1. Left basal ganglia CVA - NIH <5 on my eval (4). Start asa an plavix for secondary prevention. Start atorvastatin 80 mg. MRI showed subacute infarct. Very small few mm aneurysm on CT angio, as noted below repeat CT head if any changes in status. - had slight worsening on hospital floor, very small aneurysm, will check CTH without to r/o hemorrhage again - PT/OT if above exam is unremarkable. CHIEF SAFETY OFFICER eval as well. - continue home antihypertensive, hydralazine prn. 2. Hypertensive urgency - hydralazine prn, continue home lisinopril - allow somewhat permissive HTN in setting of CVA, hydralazine for SBP >190 ordered 3. Cognitive impairment / dementia - continue home donepezil 4. Mild hyponatremia -Na 133, will repeat BMP in the morning. No overt symptoms, unknown chronicity. Code: Full, surrogate is patient's daughter and POA DVT: Lovenox daily I have utilized all available immediate resources to obtain, update, or review the patient's current medications. Dispo: patient admitted under inpatient status. Unclear if will be able to discharge home or need for SNF/acute rehab, will have PT/OT and speech evaluations. Additional history obtained via discussions with the ER provider. These discussions contributed to the creation of the above assessment and plan. I have reviewed patient's presenting documentation, labs, and imaging personally. Scores NIHSS Level of Conciousness: Alert, keenly responsive Ask month/age: Answers both questions correctly. Open/close eyes, close hand: Performs both tasks correctly Best gaze horizontal: Normal Visual morrison: No visual loss Facial palsy: Minor paralysis, flattened nasolabial fold, asymmetry on smiling Left arm drift: No drift for full 10 sec Right arm drift: No drift for full 10 sec Left leg drift: No drift for full 5 sec Right leg drift: No drift for full 5 sec Limb ataxia: Present in one limb Sensory on face/arms/legs: Normal, no sensory loss Best language: Mild to moderate, slurs some words Dysarthria: Mild to mod,some slurring Extinction or inattention: No abnormality Total NIH Stroke scale score: 4 Quality VTE Deep Vein Thrombosis/Pulmonary Embolism Present on Admission: No
--- NOTE | 2024-02-25 17:49 | DI.CT.S_ITS ---
PROCEDURE: CT HEAD/BRAIN WO CON INDICATIONS: Slight worsening R weakness, aneurysm on CT r/o hemorrhage TECHNIQUE: Noncontrast 4.5 mm thick angled axial sections acquired from the foramen magnum to the vertex, with coronal and sagittal reformats. For radiation dose reduction, the following was used: automated exposure control, adjustment of mA and/or kV according to patient size. COMPARISON: [facility], CT, CT STROKE, 02/25/2024, 10:58. FINDINGS: Image quality: Diagnostic. CSF spaces: Basal cisterns are patent. No extra-axial fluid collections. The ventricles are symmetric in size and shape. Brain: No intracranial bleeds or masses. There is cerebral volume loss for age, with resultant ventricular and sulcal prominence. There are periventricular and deep white matter chronic small vessel ischemic changes. There is intracranial internal carotid artery atherosclerosis. Skull and face: Calvarium and visualized facial bones appear intact, without suspicious lesions. Sinuses: Visualized sinuses and mastoids are clear. IMPRESSION: No acute intracranial pathology. No significant changes from previous study. Dictated by: Bentley Bennett M.D. on 02/25/2024 at 18:48 Approved by: Bentley Bennett M.D. on 02/25/2024 at 18:49
[2024-02-25] MEDS: HYDRALAZINE 20 MG/ML VIAL 5 MG IV (18:00)
[2024-02-25] MEDS: ATORVASTATIN 20 MG TABLET 80 MG PO (20:12)
[2024-02-25] MEDS: MELATONIN 3 MG TABLET 6 MG PO (22:42)
[2024-02-26] VITALS (13 sets, daily range): BP systolic 149–175; BP diastolic 66–87; PULSE 59–74; RESP 17–20; TEMP 36.6–37.9; O2SAT 92–100
[2024-02-26] MEDS: ASPIRIN EC 81 MG TABLET PO (08:51)
[2024-02-26] MEDS: ENOXAPARIN 40 MG/0.4 ML SYRINGE SUBCUT (08:51)
[2024-02-26] MEDS: CLOPIDOGREL 75 MG TABLET PO (08:51)
--- NOTE | 2024-02-26 13:06 | DI.RAD.S_ITS ---
PROCEDURE: FL BARIUM SWALLOW W SPEECH INDICATIONS: swallow difficulties COMPARISON: None. TECHNIQUE: Examination was conducted in conjunction with speech pathology per standard protocol. In the lateral projection, filming was performed of the patient swallowing. AP projection filming may also be performed with patient swallowing. COMPARISON: FINDINGS/IMPRESSION: No ailyn aspiration. Please see speech pathology note for full details. Dictated by: Nando Cross M.D. on 02/26/2024 at 16:42 Approved by: Nando Cross M.D. on 02/26/2024 at 16:43
--- NOTE | 2024-02-26 15:00 | PT.IIE ---
Current Diagnoses Cerebral infarction, unspecified (02/25/24) Surgical History (Last Reviewed 02/25/24 @ 18:51 by Jose Torres DO) History of back surgery Hx of bilateral cataract extraction Hx of dilation and curettage Medical History (Last Reviewed 02/25/24 @ 18:51 by Jose Torres DO) Dementia Depression Facet arthropathy, lumbar Flexor hallucis longus tendonitis History of COVID-19 (2019) HTN (hypertension) Hyponatremia Internal hemorrhoids Lumbosacral radiculopathy Macular degeneration Osteoporosis Rash (11/2023) Snoring Spinal stenosis Physical Therapy Inpatient Evaluation/Re-Eval M1 PT/OT-IP Prior Functional Status Start: 02/26/24 17:10 Freq: NEEDED Status: Active Protocol: Document 02/26/24 15:00 AB (Rec: 02/26/24 17:41 AB [id number]) Medical Review Prior Functional Status Medical History Reviewed Yes Communication slurred speech; slow to respond to questions Mobility and Gait pt's daughter in room and provided info: stated that pt was modified independent with all mobilities and ambulation without AD Activities of Daily Living and IADL's per OT note: Pt states was completely indepenent with all her ADL need and had a caregiver to assist for ADL needs and there to keep her company. Social History Household Members none Number of Floors (Floors) One Floor Number of Stairs To Enter/Railing? 2 steps to enter with R rail ascending Home Environment Standard Height Toilet,Walk in Shower,Tub/Shower Home Equipment Four Wheel Walker,Shower Seat with Backrest,Hand Held Shower ,Grab Bars In Shower Additional Social History Comment pt has a caregiver that comes in to assist with housekeeping , medications and doctor's appointments: M, T, TH from 9am-4pm M2 PT-IP Current Condition Start: 02/26/24 17:10 Freq: NEEDED Status: Active Protocol: Document 02/26/24 15:00 AB (Rec: 02/26/24 17:41 AB [id number]) Physical Therapy Current Condition Current Condition Evaluation Date 02/26/24 Treatment Diagnosis L CVA; difficulty in walking Onset Date 02/25/24 M3 PT-IP Subjective Start: 02/26/24 17:10 Freq: NEEDED Status: Active Protocol: Document 05/24/24 15:00 AB (Rec: 02/26/24 17:41 AB [id number]) Subjective Physical Therapy Visit Type Type Initial Evaluation Visit Start Time 15:00 Visit Stop Time 15:40 Number of EXTENSION EDGER Visits 0 Physical Therapy Visit Comments Patient Comments agreeable to do PT M4 PT-IP Mobility and Gait Start: 02/26/24 17:10 Freq: NEEDED Status: Active Protocol: Document 02/26/24 15:00 AB (Rec: 02/26/24 17:41 [id number]) PT-Bed Mobility Assessment Supine to Sit Supine to Sit Maximum Assistance,1 Person Assistance,2 Person Assistance Sit to Supine Sit to Supine Maximum Assistance,2 Person Assistance PT-Transfer Assessment Sit to and From Stand Sit to and from Stand Maximum Assistance,2 Person Assistance,Use of Upper Extremities Equipment Transfer Assistive Device Gait Belt,Front Wheeled Walker Orthotic/Prosthetic Devices or Brace: No Comments Mobility Comments pt supine in bed. pt's daughter in room and provided pt's PLOF and home set up. pt is very sleepy and daughter stated that she is tired but agreed to do PT. BP in supine : 167/84. pt completed supine to sit max A x 1-2 and max cues with HOB elevated. pt able to sit on EOB with initial mod to max A. repostioned pt and cued for COG and body position and was able to sit CGA afterwards. pt completed sit to stand from EOB max A x 2 and max cues. max A x 2 for standing balance : pt use FWW just with LUE. RUE support. will use hemiwalker/other appopriate AD tomorrow. pt sat back on EOB . pt wanting to just go back to bed. agreed to get up again and take steps to HOB. completed sit to stand max A x 2 and max cues and able to take side steps max A x 2 and max cues x 2 steps with PT stabilizing RLE to prevent from buckling. completed sit to supine max A x 2 and max cues. positioned pt in bed. pt able to bridge using RLE for positioning. call light and table placed within reach. Gait Assessment Comments Gait Comments able to take 2 side steps towards HOB max A x 2 and max cues using one side of FWW PT-Balance Assessment Sitting Balance and Reactions Static Sitting Balance Ability Fair Dynamic Sitting Balance Ability Poor Standing Balance and Reactions Static Standing Balance Ability Poor Dynamic Standing Balance Ability Poor Device Used FWW M5 PT-IP Objective Assessments Start: 02/26/24 17:10 Freq: NEEDED Status: Active Protocol: Document 02/26/24 15:00 AB (Rec: 02/26/24 17:41 AB [id number]) Orientation Orientation/Cognition Level of Alertness Alert Language Function Ability Hard of Hearing Safety Awareness Decreased Safety Awareness Comments slow to respond to questions Gross Range of Motion Lower Extremity ROM Assessment Within Functional Limits Strength Lower Extremity Strength Assessment Right Impaired Hip 2-/5 Knee 2-/5 Ankle 0/5 Sensation Assessment Sensation Light Touch Intact Muscle Tone Muscle Tone WNL No Muscle Tone Location Right Lower Extremity Type of Tone Hypotonicity Severity of Tone Severe M6 PT-IP Treatment Start: 02/26/24 17:10 Freq: NEEDED Status: Active Protocol: Document 02/26/24 15:00 AB (Rec: 02/26/24 17:41 AB [id number]) Physical Therapy Treatment Education Education Provided Safety M7 PT-IP Assessment and Plan Start: 02/26/24 17:10 Freq: NEEDED Status: Active Protocol: Document 02/26/24 15:00 AB (Rec: 02/26/24 17:41 AB [id number]) PT Summary Assessment and Plan Potential Rehabilitation Potential Fair Status of Condition at Evaluation Evolving Summary Impairments Pain,ROM,Strength,Balance, Coordination,Sensation,Tone, Cognition,Bed Mobility, Transfers,Gait,Activity Tolerance Assessment Summary pt is a 78 y/o F who presented to the ED for slurred speech. Pt found to have L basal ganglia infarct. pt requiring max A x 2 for bed mobility and sit to stand. will continue to assess progress. d/c plan: acute rehab vs SNF Goals Bed Mobility Goal Moderate Assistance Transfer Goal Moderate Assistance Gait Goal Moderate Assistance,Joshua Walker Gait Distance 25 Other Goals improve bed mobility, transfers, ambulation SBA using LRAD 100 ft SBA Days to Meet Goals 10 Frequency of Treatment Frequency Of Treatment Once a Day Treatment Plan Physical Therapy Treatment Plan Bed Mobility Training,Transfer Training,Gait Training, Therapeutic Exercise,Balance Retraining,Discharge Planning, Hot or Cold Pack,Neuromuscular Re-ed,Coordination Retraining ,Manual Therapy Precautions Other Precautions falls Recommendations To Nursing Amount of Assist Needed Mechanical Lift Discharge Recommendations PT Discharge Recommendations SNF Rehab,Acute Rehab,SNF vs Acute Rehab Transportation Needs at Discharge Wheelchair/Cabulance,Stretcher /Ambulance
--- NOTE | 2024-02-26 15:05 | CM.DANOTE ---
Initial DCP Assessment Note Pt is a 78 yo female, resident of [place], presents with stroke like sx, imaging confirms CVA. Therapies recommending SNF. PCP: Florinda Urbano Payer: [facility]/ [employer] Reviewed chart,met w/patient's daughter while patient sleeping. Daughter Yanet reports she has DPOA and will bring in the paperwork. Patient has a son that lives in [place]. Daughter reports that patient has been living alone in [place], private residence, has a caregiver from [facility] Home that works 9-4 three days per week. Patient and family had been working on patient's move into [facility] in [place] when this happened. Daughter requests referral to [facility]. Upon discharge from SNF, patient can move in to her [place], according to daughter. Becky [facility], kindly agreed to send this referral to Deana at [facility] who has since accepted patient for admission Thursday. Transport TBD. Hospital exempt PASRR completed which will need provider signature. Plan: Discharge to [facility] SNF, transport TBD, expected Thursday. gavin Leblanc, available via [facility]'s admission cell P [phone]. Following closely for coordination. MERCEDEZ Denis Discharge Planning/Care Management CM Discharge Assessment Start: 02/26/24 15:03 Freq: Status: Active Protocol: Document 02/26/24 15:03 REID (Rec: 02/26/24 15:05 REID [id number]) Discharge Planning Assessment Assigned [employer] Operator MERCEDEZ Peña DPOA/Assigned Designee Name romero Paez Contact Information [phone] Advance Directives? No History Provided By Family Member,Medical Record Prior Living Arrangements House Household Members none Type of transporation used prior to Relies on Others admit Independent with ADL's Yes Is patient alert and oriented? No Needs Assistance With Bathing,Meal Prep,Managing Medications,Home Chores / Shopping Patient/Family Preference Alf Facility Barriers to Discharge No Discharge Plan Alf Facility Transportation Arrangement Facility Referrals Initiated Alf If patient plan is SNF: Has PASSR been Yes completed? Inpatient Status as of 02/25/24 Comment Hospital exempt PASRR, will plan to have provider sign.
--- NOTE | 2024-02-26 15:31 | SLP.IPNOTE ---
LUNCHEONETTE OPERATOR recommendations as of 149902/26/24: 1. Thin liquids in small sips (not serial sips as this demonstrated increased risk of laryngeal penetration on MBS) 2. Puree solids 3. Oral care before and after meals 4. Upright position for meals 5. One bite at a time 6. Standby assistance/supervision to assist with maintaining a slow feeding rate (approx 1 bite every 20-30 seconds)
[2024-02-26] MEDS: ACETAMINOPHEN 325 MG TABLET 650 MG PO (15:36)
--- NOTE | 2024-02-26 16:37 | ST.IPIE ---
Visit Care Team Role Provider Type Florinda Urbano MD Primary Care Provider Physician Specialty: Family Practice Obstetrics Address: [address] [place] [address], [address] Email: [email or web address] Julián Francis MD Family Provider Non-Staff Specialty: Internal Medicine Address: [address] [place] [address], [address], [address] Email: Danika Layne DO Emergency Provider Physician Referring Provider Specialty: Emergency Medicine Address: [address] [place] [address], [address] Email: [email or web address] Jose Torres DO Admit Provider Physician Attending Provider Specialty: Internal Medicine Address: [address] [place] [address], [address] Email: [email or web address] Current Diagnoses Cerebral infarction, unspecified (02/25/24) Past Medical History (Last Reviewed 02/25/24 @ 18:51 by Jose Torres DO) Dementia (Medical) Short term memory issues Depression (Medical) Facet arthropathy, lumbar (Medical) Flexor hallucis longus tendonitis (Medical) History of COVID-19 (Medical 2019) HTN (hypertension) (Medical) Hyponatremia (Medical) Internal hemorrhoids (Medical) Lumbosacral radiculopathy (Medical) Macular degeneration (Medical) Osteoporosis (Medical) Rash (Medical 11/2023) Various locations on body Snoring (Medical) Spinal stenosis (Medical) ST IP Initial Evaluation Report WAX MACHINE OPERATOR Adult Cognitive Linguistic Eval Start: 02/26/24 15:59 Freq: Status: Active Protocol: Document 02/26/24 16:00 CG (Rec: 02/26/24 16:37 CG [id number]) Adult Cognitive Linguistic Evaluation Session Time Visit Start Time 12:00 Visit Stop Time 12:30 Total Visit Minutes 30 Visit Information Visit Number [address] Torres Reason for Referral slurred speech, pocketing food Setting Assessment Location Acute Care Visit Type Note Type Initial evaluation Next Note Type Next Note Type Treatment Note Patient Information Identification Type Name Patient History Per H&P: 78 F with PMH of HTN , cognitive impairment who presented after noticing this morning with her maintenance planning clerk that she was having difficulty speaking and finding words. This started around 9-10 AM. She denied any numbness, tingling or numbness at the time that she noticed. In the ER she was hypertensive, but had only NIH of 1 at that time . Stroke service was not called. She was given full dose aspirin and admitted for presumed TIA vs stroke. Upon my evaluation she had difficulty coordinating with her R hand, which was weak especially given she is normally R handed. Speech remained about the same and unchanged. MR done shortly after admission showed a subacute L infarct. Per nursing report, since admission the pt's right sided weakness, speech and language deficits, and dysphagia symptoms have progressed and intensified. Nursing reports that the pt is pocketing solid food and that she bit a large part of the inside of her right cheek. Pt continues to have right sided facial weakness. Subjective Patient Report Pt was seated partially upright in bed upon ST entry to the room with her daughter, Melo, present at bedside . Melo is also her mother's DPOA. Pt was awake and alert, but presented as weak, with very weak vocal quality. Moderate R sided facial droop observed. Pt c/o having difficulty with getting food stuck in her mouth. Did not c/o difficulty with liquids. Additionally, pt c/o difficulty with getting words out and words sounding slurred. She stated this started yesterday and that she did not initially notice it, but her caregiver pointed it out and she was taken to the hospital. Pt was oriented to person, place, purpose. Location Other Mental Status Alert,Responsive,Cooperative Informal Assessment Receptive Language Normal Yes Expressive Language Normal No Expressive Language Impairment(s) Confrontation naming, Expression of complex thoughts /ideas Pragmatic Language Normal Yes Speech Normal No Speech Impairment(s) Imprecise articulation Cognition Normal No: Recent SLUMS score 17/30 Formal Assessment Standardized Test/Screener Type Quick Aphasia Battery (QAB) Administration Complete Results Word [id number] Sentence [id number] Word finding4.75 Grammatical construction4.00 Speech motor programming2.50 Repetition9.17 Reading9.17 QAB overall6.91 According to the authors of the QAB, QAB overall scores of 5.00?7.49 are indicative of moderate aphasia. Findings/Results Language Function Moderately impaired Cognitive Communication Deficits Self-awareness of Cognitive- Predictive awareness (able to Communication Deficits predict problem; impact of impairments) Prognosis Prognosis Fair Based on Family support Plan of Care Speech-Language Treatment Yes Patient/Caregiver Education Described results of evaluation,Patient expressed understanding of evaluation, Family/caregivers expressed agreement with goals and treatment plan Short Term Goals Pt will complete oral motor exercises with 80% accuracy in order to rehabilitate R sided facial musculature and increase speech intelligibility. Discharge Recommendations assisted facility, Inpatient rehab facility WAX MACHINE OPERATOR Clinical Swallow Evaluation Start: 02/26/24 15:59 Freq: Status: Active Protocol: Document 02/26/24 16:00 CG (Rec: 02/26/24 16:37 CG [id number]) Clinical Swallow Evaluation Session Time Visit Start Time 12:30 Visit Stop Time 13:00 Total Visit Minutes 30 Reported by Patient/Caregiver Other Symptoms Drooling,Other Comment Pocketing of foods Current Diet Regular (IDDSI 7) Baseline Feeding Method Needs some assistance The IDDSI Framework Protocol: IDDSI.1 Objective Assessment Mental Status Alert,Responsive,Cooperative Oral Integrity Oral residue,Sores/Lesions Dentition Within normal limits Lip Function Moderate impairment Observation of Lips at Rest Right sided weakness/Drooping Pucker Right sided weakness/drooping Lip Retraction Right sided weakness/Drooping Tongue Function Moderate impairment Observations of Tongue at Rest Within normal limits Tongue Protrusion Deviates to the right Tongue Lateralization Reduced range of motion, Reduced strength, Incoordination Comment Oral motor examination was significant for the following: -R sided weakness (lingual, labial) -Suspected R sided numbness based on large R sided lesion inside cheek -Weak, quiet vocal quality -Slurred speech, phonemic paraphasias -Significant oral residue present in various pockets of oral mucosa Food and Liquid Trials Position During Assessment Slightly reclined,In bed Liquids Trialed Thin (IDDSI 0) Solid Trials Purred (IDDSI 4),Soft & Bite- sized (IDDSI 6) Administration Type Tea spoon,Needs some assistance Oral Impairment Severely impaired Oral Phase Comments Water via straw sip: -mildly impaired labial seal around straw -bolus hold appears adequate -suspect mildly delayed/ discoordinated A-P lingual transport -suspect mildly delayed pharyngeal swallow initiation -mild R sided anterior bolus loss Smothie via straw sip (IDDSI 2 ): -mildly impaired labial seal around straw -bolus hold appears adequate -suspect mildly delayed pharyngeal swallow initiation -suspect mildly delayed/ discoordinated A-P lingual transport -mild R sided anterior bolus loss Ice cream via tsp (IDDSI 2-3): -mildly impaired labial seal around straw -bolus hold appears adequate -suspect mildly delayed pharyngeal swallow initiation -suspect mildly delayed/ discoordinated A-P lingual transport -mild R sided anterior bolus loss Bites of cooked vegetables from chicken noodle soup ( IDDSI 5): -discoordinated mastication -prolongued mastication time -oral residue after the swallow, unable to be cleared with cued lingual sweep Bites of chicken breast from chicken noodle soup (IDDSI 6): -discoordinated mastication -prolongued mastication time -oral residue after the swallow, unable to be cleared with cued lingual sweep Pharyngeal Impairment Within functional limits Pharyngeal Phase Comments Water via straw sip: -suspect mildly delayed pharyngeal swallow initiation -no overt s/sx aspiration/ penetration -silent aspiration cannot be ruled out without an instrumental assessment Smothie via straw sip (IDDSI 2 ): -suspect mildly delayed pharyngeal swallow initiation -no overt s/sx aspiration/ penetration -silent aspiration cannot be ruled out without an instrumental assessment Ice cream via tsp (IDDSI 2-3): -no overt s/sx aspiration/ penetration -silent aspiration cannot be ruled out without an instrumental assessment Bites of cooked vegetables from chicken noodle soup ( IDDSI 5): -no overt s/sx aspiration/ penetration; however, suspect that only a minimal amount of bolus was successfully transported to the pharyngeal space from the oral cavity -silent aspiration cannot be ruled out without an instrumental assessment Bites of chicken breast from chicken noodle soup (IDDSI 6): -no overt s/sx aspiration/ penetration; however, suspect that only a minimal amount of bolus was successfully transported to the pharyngeal space from the oral cavity -silent aspiration cannot be ruled out without an instrumental assessment The IDDSI Framework Protocol: IDDSI.1 Findings Swallowing Function Oral phase dysphagia Severity of Swallow Impairment Moderately-severely impaired Contributing Factors to Swallow Impaired oral-pharyngeal Impairment transport Prognosis Fair Impact on Safety and Functioning Risk for aspiration,Risk for inadequate nutrition/hydration Recommendations Instrumental Assessment Yes Swallowing Treatment Yes Recommended Solids Pureed (IDDSI 4) Recommended Liquids Thin (IDDSI 0) Other Recommendations -Inpatient MBS stat to rule out silent aspiration based on significant R sided weakness, acute neurological dx, and weak vocal quality -Strict oral care due to aspiration risk Safety Precautions/Swallowing Supervision needed for all Recommendations meals,Small bites and sips when eating,Slow rate; swallow between bites,Set-up assistance,1 to 1 feeding assistance,Strict oral care after intake Medication Recommendations Crushed in Carrier Discharge Recommendations assisted facility Education Patient/Caregiver Education Described results of evaluation,Patient expressed understanding of evaluation, Patient expressed agreement with goals & treatment plans, Patient expressed understanding of safety precautions,Patient expressed understanding of feeding recommendations,Family/ caregivers expressed understanding of safety precautions,Family/caregivers expressed understanding of feeding recommendations Goals Short-term Goals 1. Pt will safely and efficiently tolerate current diet of puree solids (IDDSI 4) and thin liquids without s/sx dysphagia in order to meet her nutrition and hydration needs. 2. Pt will complete MBSS assessment to rule out silent aspiration given risk factors. 3. Pt's diet will be upgraded as tolerated. Long-term Goals Pt will safely and efficiently tolerate least restrictive diet in order to meet her nutrition/hydration needs.
--- NOTE | 2024-02-26 16:51 | P.PN_ITS ---
Subjective Subjective Interval history: 78 F admitted with a L basal ganglia stroke. Today she had minimal movement of her R hand. Yesterday, repeat head CT showed no hemorrhagic conversion. Given her last known normal was at 9 hours prior to worsening, along with small aneurysm noted on CTA, and she was markedly hypertensive tPA was not considered due to markedly increased risks at that time for hemorrhage. She was given asa and plavix, but plavix stopped as now NIH is >5. She was seen by speech therapy today and tolerated a diet and thin liquids with small sips. Exam Vital Signs (past 8 hours): - 02/26/24 10:00 02/26/24 11:45 02/26/24 14:00 Temperature 99.1 F Pulse Rate 59 L Respiratory Rate 18 Blood Pressure 175/73 H Pulse Oximetry 97 98 98 Oxygen Delivery Method Room Air Room Air Oxygen Flow Rate 0 0 0 02/26/24 15:00 02/26/24 15:36 Temperature 100.2 F H 100.2 F H Pulse Rate 64 Respiratory Rate 17 Blood Pressure 167/84 H Pulse Oximetry 100 Oxygen Delivery Method Oxygen Flow Rate 0 Oxygen Delivery Method Room Air Oxygen Flow Rate 0 Narrative Exam Narrative: General:? Patient is well developed and well nourished, in no distress at this time. HEENT:? Normocephalic, atraumatic, extraocular muscles intact, oral pharynx is clear and mucous membranes are moist. Neck: supple and symmetric, trachea is midline, no cervical adenopathy. Chest:? Normal AP diameter and contour without kyphoscoliosis, no tachypnea, equal chest rise bilaterally. Lungs:? CTA b/l no wheezing rhonchi or rales. Cardio:?RRR no m/r/g. Abdomen: S NT ND. Musculoskeletal:? Muscle strength and tone are equal within normal limits, no deformity. Extremities: No edema or joint effusions. No cyanosis or clubbing. Skin:? Pale,? Warm to touch,dry and intact without rashes, ulcerations or petechiae.? Neuro:? Alert and orientated x3,?R facial droop, worse R arm and leg weakness. Speech is more slurred today as well. Psych:? Patient has a well-kept appearance, appropriate affect, mental status attitude thought context and judgment are appropriate for age. Objective Labs 02/25/24 11:44 02/25/24 11:17 PFSH Medical History History of COVID-19 (2019) Depression Spinal stenosis HTN (hypertension) Macular degeneration Dementia Rash (11/2023) Facet arthropathy, lumbar Lumbosacral radiculopathy Snoring Flexor hallucis longus tendonitis Hyponatremia Osteoporosis Internal hemorrhoids Surgical History Hx of bilateral cataract extraction Hx of dilation and curettage History of back surgery Social History household members: none Smoking Status: Never smoker alcohol intake: current Assessment & Plan Assessment & Plan narrative: 1. Left basal ganglia CVA - NIH <5 on my eval (4) on presentation. Had worsening overnight / progression of stroke with now more elevated NIH. This started >9 hours after initial symptoms, along with hypertension and small aneurysm noted on CT angio tPA not considered due to elevated risks of hemorrhage. NIH now >5, will stop plavix and continue asa and statin only. - repeat CT head showed no hemorrhagic conversion. - continue PT/OT and RENEWABLE ENERGY DIVISION MANAGER therapies. Barium swallow today without aspiration with small sips as directed by speech therapy. - continue home antihypertensive, hydralazine prn. - continue tele - echo unremarkable. 2. Hypertensive urgency - hydralazine prn, continue home lisinopril - allow somewhat permissive HTN in setting of CVA, hydralazine for SBP >190 ordered 3. Cognitive impairment / dementia - continue home donepezil 4. Mild hyponatremia -Na 133, will repeat BMP in the morning. No overt symptoms, unknown chronicity. Code: Full, surrogate is patient's daughter and POA DVT: Lovenox daily I have utilized all available immediate resources to obtain, update, or review the patient's current medications. Dispo: patient admitted under inpatient status. Unclear if will be able to discharge home or need for SNF/acute rehab, will have PT/OT and speech evaluations. Additional history obtained via discussions with the speech therapist, case management provider. These discussions contributed to the creation of the above assessment and plan. I have reviewed patient's presenting documentation, labs, and imaging personally. Quality VTE Deep Vein Thrombosis/Pulmonary Embolism Present on Admission: No
--- NOTE | 2024-02-26 17:00 | ST.SWALLOW ---
Visit Care Team Role Provider Type Florinda Urbano MD Primary Care Provider Physician Specialty: Family Practice Obstetrics Address: [address] [place] [address], [address] Email: [email or web address] Julián Francis MD Family Provider Non-Staff Specialty: Internal Medicine Address: [address] [place] [address], [address], [place], [address] Email: Danika Layne DO Emergency Provider Physician Referring Provider Specialty: Emergency Medicine Address: [address] [place] [address], [address] Email: [email or web address] DO Admit Provider Physician Attending Provider Specialty: Internal Medicine Address: [address] [place] [address] Email: [email or web address] Modified Barium Swallow Study SCHOOL OPERATIONS MANAGER Modified Barium Swallow Study Start: 02/26/24 15:59 Freq: Status: Active Protocol: Document 02/26/24 16:39 CG (Rec: 02/26/24 17:00 CG [id number]) Modified Barium Swallow Study Total Time Visit Start Time 14:45 Visit Stop Time 15:00 Total Visit Minutes [address] Torres Reason for Referral slurred speech, pocketing food Patient Information Patient History Per H&P: 78 F with PMH of HTN , cognitive impairment who presented after noticing this morning with her make up worker that she was having difficulty speaking and finding words. This started around 9-10 AM. She denied any numbness, tingling or numbness at the time that she noticed. In the ER she was hypertensive, but had only NIH of 1 at that time . Stroke service was not called. She was given full dose aspirin and admitted for presumed TIA vs stroke. Upon my evaluation she had difficulty coordinating with her R hand, which was weak especially given she is normally R handed. Speech remained about the same and unchanged. MR done shortly after admission showed a subacute L infarct. Per nursing report, since admission the pt's right sided weakness, speech and language deficits, and dysphagia symptoms have progressed and intensified. Nursing reports that the pt is pocketing solid food and that she bit a large part of the inside of her right cheek. Pt continues to have right sided facial weakness. Lateral View Textures Administered Trials Presented Thin Liquid via Spoon (IDDSI 0 ),Thin Liquid via Cup (IDDSI 0 ),Mildly Thick Liquid via Spoon (IDDSI 2),Puree (IDDSI 4 ) Barium Tablet No The IDDSI Framework Protocol: IDDSI.1 Oral Impairment Source: The Modified Barium Swallow Impairment Profile (MBSImP??) Lip Closure Escape beyond mid-chin Tongue Control During Bolus Hold Posterior escape of less than half of bolus Bolus Transport/Lingual Motion Slowed tongue motion Oral Residue Residue collection on oral structures Location Floor of mouth,Tongue,Lateral sulci Initiation of Pharyngeal Swallow Bolus head at pyriforms Pharyngeal Impairment Source: The Modified Barium Swallow Impairment Profile (MBSImP??) Soft Palate Elevation No bolus between soft palate & pharyngeal wall Laryngeal Elevation Part.sup.move.thyroid cart/ part.approx.arytenoids to epiglot.petiole Anterior Hyoid Excursion Partial anterior movement Epiglottic Movement Complete inversion Laryngeal Vestibular Closure Incomplete; narrow column air/ contrast in laryngeal vestibule Pharyngeal Stripping Wave Present - diminished Pharyngoesophageal Segment Opening Partial distention/partial duration; partial obstruction of flow Tongue Base Retraction Narrow column of contrast/air betwn tongue base & post. pharyngeal wall Pharyngeal Residue Collection of residue within/ on pharyngeal structures Location Tongue base A/P View The IDDSI Framework Protocol: IDDSI.1 Clinical Impressions Dysphagia Type Oral, very mild pharyngeal Findings -mild penetration on serial swallows of thin liquids -no aspiration observed across proferred consistencies (thin , nectar (IDDSI 2), pudding ( IDDSI 4)) -anterior bolus loss -moderate oral dysphagia Rehabilitation Potential Good Patient Appropriate for Therapy Yes Recommendations Diet Liquids Order Thin (IDDSI 0) Diet Order Pureed (IDDSI 4) Medication Recommendation Crushed in Carrier
--- NOTE | 2024-02-26 17:18 | OT.IP.TRT ---
Current Diagnoses Cerebral infarction, unspecified (02/25/24) Occupational Therapy Treatment Note M2 OT-IP Current Condition Start: 02/25/24 17:14 Freq: Status: Active Protocol: Document 02/25/24 17:14 [facility] (Rec: 02/25/24 17:41 [facility] [id number]) Occupational Therapy Current Condition Current Condition Evaluation Date 02/25/24 Treatment Diagnosis CVA Diagnosis Onset Date 02/25/24 Post Operative Precautions Lumbar Precautions Log Roll,No Twisting,Limit Bending,Lifting Restriction of 10 lbs,Gait Belt above Incisional Area Other Precautions Pt states still has been following her back precautions as just had back surgery 12/26 M3 OT- IP Subjective and Pain Start: 02/25/24 17:14 Freq: Status: Active Protocol: Document 02/26/24 17:22 [facility] (Rec: 02/26/24 17:29 [facility] [id number]) OT- Subjective Occupational Therapy Visit Type Type Treatment Note Visit Start Time 17:10 Visit Stop Time 17:18 Occupational Therapy Visit Comments Patient Comments Able to see pt to reassess for RUE function as nursing states in the evening pt had a change. Patient/Caregiver Goals TO get better. OT Pain Assessment Pain When Pain Assessed At Rest Pain Present Pain Present Denied Pain M4 OT- IP ADL's Start: 02/25/24 17:14 Freq: Status: Active Protocol: Document 02/25/24 17:14 [facility] (Rec: 02/25/24 17:41 [facility] [id number]) OT DLZ-[id number]-Xyiilhe Comments OT Self-Feeding Comments Not at meal time. Pt will need to have assist to cut her food and use of larger utensil would be best. OT ADL-Grooming Comments OT Grooming Comments Pt able to wash her hands at the sink after set-up. OT ADL-Oral Care Comments Oral Care Comments Not performed. OT ADL-Dressing General Eval Lower Body Dressing Ability Minimal Assistance Comments OT Dressing Comments Pt able to black/doff her socks while seated and use of left hand more than her right. Pt is right hand dominant. Pt states at times stand to get dressed. Santos for brief management. Having to point out to pt to be sure to get her right heel into her shoe, as it was not completely all the way on. OT ADL-Toileting General Evaluation Toileting Ability Contact Guard Assistance Areas Needing Assistance Manage Clothing Comments OT Toileting Comments Assist to help pull down the brief on the right side. OT ADL-Bathing Comments OT Bathing Comments Not performed. Pt will benefit from a shower chair and assist. M5 OT- IP IADL's Start: 02/25/24 17:14 Freq: Status: Active Protocol: Document 02/25/24 17:14 [facility] (Rec: 02/25/24 17:41 [facility] [id number]) OT-Instrumental Activities of Daily Living Deficits IADL Deficits Identified Deficits Home Safety Awareness Awareness of Need for Assistance at Home Decreased Awareness Ability to Problem Solve Emergency Able to Problem Solve Situations Medication Management Medication Management Comments Pt uses blister packs for medications at home. Money Management Money Management Caregiver Provides Assistance Fret Saw Operator Fret Saw Operator Caregiver Provides Assist Driving Driving Comments Pt states that she can drive but that her family does not want her to drive. M9 OT- IP Assessment and Plan Start: 02/25/24 17:14 Freq: Status: Active Protocol: Document 02/26/24 17:22 [facility] (Rec: 02/26/24 17:29 [facility] [id number]) OT Summary Assessment and Plan Potential Rehabilitation Potential Good Analytic Complexity at Evaluation Moderate Summary OT Impairments Strength,Balance,Coordination, Functional Cognition, Functional Mobility,Self- Feeding,Grooming,Dressing, Toileting,Bathing,Toilet Transfers,Shower Transfers, Activity Tolerance Progress Towards Goals Slow Progress due to Medical Issues Assessment Summary Pt now having only 2-/5 at right shoulder and then trace at right elbow extension. Yesterday pt able to pt had all AROM and mainly just coordination and weakness in her right hand. Pt intact for her vision. At this time pt will benefit from skilled rehab versus acute rehab. Goals Self-Feeding Goal Standby Assistance Grooming Goal Minimal Assistance Dressing Goal Moderate Assistance Toileting Goal Minimal Assistance Bathing Goal Moderate Assistance Toilet Transfer Goal Minimal Assistance Shower Transfer Goal Moderate Assistance OT-Other Goals Goals based on incorporation of her right hand for all ADl and mobility needs. Days to Meet Goals 30 Frequency of Treatment Frequency Of Treatment Once a Day Treatment Plan OT Treatment Plan ADL Training,Functional Cognition Training,Functional Mobility,Neuromuscular Re- education,Patient/Family Education,Discharge Planning Discharge Recommendations OT Discharge Recommendations SNF vs Acute Rehab Transportation Needs at Discharge Wheelchair/Cabulance,Stretcher /Ambulance
[2024-02-26] MEDS: lisinopriL 20 MG TABLET PO (18:03)
[2024-02-26] MEDS: DONEPEZIL 5 MG TABLET 10 MG PO (18:03)
[2024-02-26] MEDS: GABAPENTIN 300 MG CAPSULE PO (21:24)
[2024-02-26] MEDS: ATORVASTATIN 20 MG TABLET 80 MG PO (21:24)
[2024-02-26] MEDS: MELATONIN 3 MG TABLET 6 MG PO (21:24)
[2024-02-27] VITALS (14 sets, daily range): BP systolic 110–166; BP diastolic 52–98; PULSE 51–85; RESP 17–23; TEMP 36.4–37.6; O2SAT 94–99
[2024-02-27 05:10] LABS: Add Manual Diff / Slide Review NO; Basophils Absolute Auto 100 /uL (0-100); Eosinophils Absolute Auto 0 /uL (0-450); Eosinophils Percent Auto 0.6 % (2-4); Hematocrit 36.4 % (36-46); Hemoglobin 12.4 g/dL (12.0-16.0); Lymphocytes Absolute Auto 2500 /uL (1100-4500); Lymphocytes Percent Auto 34.6 % (25-40); Mean Corpuscular HGB Conc 34.2 % (30-36); Mean Corpuscular Hemoglobin 29.9 PG (26-34); Mean Corpuscular Volume 87.4 fL (80-100); Monocytes Absolute Auto 700 /uL (0-900); Monocytes Percent Auto 9.1 % (3-14); Neutrophils Absolute Auto 4000 /uL (1500-7000); Neutrophils Percent Auto 54.7 % (50-75); Platelet Count 228 X10^3/uL (150-400); Red Blood Cell Count 4.16 X10^6/uL (4.0-5.2); Red Cell Distribution Width 13.7 % (11.6-14.8); White Blood Cell Count 7.3 X10^3/uL (4.5-11.0)
[2024-02-27 05:14] LABS: Hemoglobin A1C% w Est Avg Glu 5.9 % (4.0-6.0)
[2024-02-27 05:22] LABS: BUN Creatinine Ratio 18.2 (6-22); Blood Urea Nitrogen 8 mg/dL (7-17); Calcium 8.6 mg/dL (8.4-10.2); Carbon Dioxide 24 mmol/L (22-32); Chloride 98 mmol/L (98-107); Cholesterol 232 mg/dL (140-199); Estimated Glomerular Filt Rate > 60 mL/min (>60); Glucose 105 mg/dL (80-110); HEMOLYSIS < 15 (0-50); Potassium 4.2 mmol/L (3.4-5.1); Sodium 126 mmol/L (137-145); Triglycerides 99 mg/dL (35-150)
[2024-02-27 05:30] LABS: HDL Cholesterol 128 mg/dL (40-60); LDL Cholesterol Calculated 84 mg/dL (<100)
[2024-02-27 05:49] LABS: TSH w/ Reflex to FT4 2.39 uIU/mL (0.47-4.68)
[2024-02-27] MEDS: ACETAMINOPHEN 325 MG TABLET 650 MG PO (06:48)
[2024-02-27] MEDS: lisinopriL 20 MG TABLET PO (08:30)
[2024-02-27] MEDS: GABAPENTIN 300 MG CAPSULE PO ×2 (08:31→21:01)
[2024-02-27] MEDS: ASPIRIN EC 81 MG TABLET PO (08:31)
[2024-02-27] MEDS: ENOXAPARIN 40 MG/0.4 ML SYRINGE SUBCUT (08:31)
[2024-02-27] MEDS: CHOLECALCIFEROL (VITAMIN D3) 1,000 UNIT TABLET 2000 UNIT PO (08:31)
--- NOTE | 2024-02-27 08:33 | P.PN_ITS ---
Subjective Subjective Interval history: Deep right hemiparesis. No improvement. Denies CUMMINGS, wants a stool medicine. Some LBP. Exam Vital Signs (past 8 hours): - 02/27/24 02:00 02/27/24 03:10 02/27/24 06:00 Temperature 99.7 F H Pulse Rate 73 Respiratory Rate 20 Blood Pressure 142/64 H Pulse Oximetry 94 95 95 Oxygen Delivery Method Room Air Room Air Oxygen Flow Rate 0 02/27/24 08:30 Temperature Pulse Rate 85 Respiratory Rate Blood Pressure 161/98 H Pulse Oximetry Oxygen Delivery Method Oxygen Flow Rate Oxygen Delivery Method Room Air Oxygen Flow Rate 0 Narrative Exam Narrative: NAD, alert and oriented. Slurred speech. Lungs are clear, normal rate and effort. Heart is regular, no murmur gallop or rub. Abdomen is soft, non distended. Extremities are free of edema. Dense right hemiparesis and right facial droop Objective Labs 02/27/24 04:45 02/27/24 04:45 Labs: Laboratory Results - last 24 hr 02/27/24 04:45 WBC 7.3 D RBC 4.16 Hgb 12.4 Hct 36.4 MCV 87.4 MCH 29.9 MCHC 34.2 RDW 13.7 Plt Count 228 Neut % (Auto) 54.7 Lymph % (Auto) 34.6 [place] % (Auto) 9.1 Eos % (Auto) 0.6 L Baso % (Auto) 1.0 Neut # (Auto) 4000 Lymph # (Auto) 2500 [place] # (Auto) 700 Eos # (Auto) 0 Baso # (Auto) 100 Sodium 126 L Potassium 4.2 Chloride 98 Carbon Dioxide 24 BUN 8 Creatinine 0.44 L Estimated GFR > 60 BUN/Creatinine Ratio 18.2 Glucose 105 Hemoglobin A1c 5.9 Calcium 8.6 Triglycerides 99 Cholesterol 232 H LDL Cholesterol, Calc 84 HDL Cholesterol 128 H TSH 2.39 PFSH Medical History History of COVID-19 (2019) Depression Spinal stenosis HTN (hypertension) Macular degeneration Dementia Rash (11/2023) Facet arthropathy, lumbar Lumbosacral radiculopathy Snoring Flexor hallucis longus tendonitis Hyponatremia Osteoporosis Internal hemorrhoids Surgical History Hx of bilateral cataract extraction Hx of dilation and curettage History of back surgery Social History household members: none Smoking Status: Never smoker alcohol intake: current Assessment & Plan Assessment & Plan narrative: 1. Left basal ganglia CVA, present on admission and active. - NIH <5 on my eval (4) on presentation. Had worsening overnight / progression of stroke with now more elevated NIH. This started >9 hours after initial symptoms, along with hypertension and small aneurysm noted on CT angio tPA not considered due to elevated risks of hemorrhage. NIH now >5, will stop plavix and continue asa and statin only. - repeat CT head showed no hemorrhagic conversion. - continue PT/OT and CLASS C DRIVER therapies. Barium swallow today without aspiration with small sips as directed by speech therapy. - continue home antihypertensive, hydralazine prn. - continue tele - echo unremarkable. - will need SNF 2. Hypertensive urgency, present on admission and improved. - hydralazine prn, continue home lisinopril - allow somewhat permissive HTN in setting of CVA, hydralazine for SBP >190 ordered 3. Cognitive impairment / dementia, present on admission and active. - continue home donepezil. 4. Mild hyponatremia, present on admission and active. -Na 133, will repeat BMP in the morning. No overt symptoms, unknown chronicity. Code: Full, surrogate is patient's daughter and POA DVT: Lovenox daily DISPO: SNF 1-2 days. Quality VTE Deep Vein Thrombosis/Pulmonary Embolism Present on Admission: No
[2024-02-27] MEDS: HYDROCODONE/ACET 10/325 TABLET 1 TAB PO ×4 (09:59→21:24)
--- NOTE | 2024-02-27 10:55 | PT.IPTN ---
Current Diagnoses Cerebral infarction, unspecified (02/25/24) Physical Therapy Treatment Note M2 PT-IP Current Condition Start: 02/26/24 17:10 Freq: NEEDED Status: Active Protocol: Document 02/26/24 15:00 [facility] (Rec: 02/26/24 17:41 [facility] [id number]) Physical Therapy Current Condition Current Condition Evaluation Date 02/26/24 Treatment Diagnosis L CVA; difficulty in walking Onset Date 02/25/24 M3 PT-IP Subjective Start: 02/26/24 17:10 Freq: NEEDED Status: Active Protocol: Document 02/27/24 10:55 [facility] (Rec: 02/27/24 12:36 [facility] [id number]) Subjective Physical Therapy Visit Type Type Treatment Note Visit Start Time 10:55 Visit Stop Time 11:45 Number of DISABILITIES SERVICES OFFICER Visits 0 Physical Therapy Visit Comments Patient Comments agreeable to do PT M4 PT-IP Mobility and Gait Start: 02/26/24 17:10 Freq: NEEDED Status: Active Protocol: Document 02/27/24 10:55 [facility] (Rec: 02/27/24 12:36 [facility] [id number]) PT-Bed Mobility Assessment Supine to Sit Supine to Sit Maximum Assistance,1 Person Assistance,2 Person Assistance ,Head of Bed Elevated,Bedrails Scooting Scooting to Edge of Bed Maximum Assistance PT-Transfer Assessment Sit to and From Stand Sit to and from Stand Maximum Assistance,2 Person Assistance,Use of Upper Extremities Equipment Transfer Assistive Device Front Wheeled Walker,Joshua Walker Orthotic/Prosthetic Devices or Brace: No Transfers Transfer Destination Chair Transfer Technique Squat Pivot Transfer Ability Level of Assist Maximum Assistance,1 Person Assistance,2 Person Assistance ,Use of Upper Extremities Comments Mobility Comments pt supine in bed and agreeable to do PT. completed R UE/LE PROM/ AAROM. completed supine to sit max A and max cues with HOB elevated. pt requiring mod to CGA with sitting balance on EOB and max cues. sitting balance/ tolerance activity on EOB conducted: increase COG and midling posture, RUE weight bearing on elbow and cued to recenter trunk; sitting balance with perturbations. educated pt regarding use of hemiwalker. sit <>stand x 3 sets requiring max A x 2 and max cues: pt unable to push down on hemiwalker for support and tends to just squeeze on walker. PT demonstrated and explained but pt continues not to be able to follow. pt required max A for standing balance and max A for stabilizing RLE. pt also has L knee buckling x 2 during standing. completed standing using FWW for support to assess if pt will be able to push on FWW for support pt continues to just hold on to FWW requiring max A x 2 for standing balance. pt completed partial stand pivot transfer max A x 1-2 and max cues. PT in front of pt to pivot and DISABILITIES SERVICES OFFICER behind pt to assist. positioned pt on the chair. call light and table placed in front of pt. M5 PT-IP Objective Assessments Start: 02/26/24 17:10 Freq: NEEDED Status: Active Protocol: Document 02/26/24 15:00 [facility] (Rec: 02/26/24 17:41 [facility] [id number]) Orientation Orientation/Cognition Level of Alertness Alert Language Function Ability Hard of Hearing Safety Awareness Decreased Safety Awareness Comments slow to respond to questions Gross Range of Motion Lower Extremity ROM Assessment Within Functional Limits Strength Lower Extremity Strength Assessment Right Impaired Hip 2-/5 Knee 2-/5 Ankle 0/5 Sensation Assessment Sensation Light Touch Intact Muscle Tone Muscle Tone WNL No Muscle Tone Location Right Lower Extremity Type of Tone Hypotonicity Severity of Tone Severe M6 PT-IP Treatment Start: 02/26/24 17:10 Freq: NEEDED Status: Active Protocol: Document 02/27/24 10:55 [facility] (Rec: 02/27/24 12:36 [facility] [id number]) Physical Therapy Treatment Exercises Exercises Ankle Pumps,Heel Slides,Elbow Flexion/Extension,Wrist ROM, Hand ROM Education Education Provided Safety M7 PT-IP Assessment and Plan Start: 02/26/24 17:10 Freq: NEEDED Status: Active Protocol: Document 02/27/24 10:55 [facility] (Rec: 02/27/24 12:36 AB [id number]) PT Summary Assessment and Plan Potential Rehabilitation Potential Fair Summary Impairments Pain,ROM,Strength,Balance, Coordination,Sensation,Tone, Cognition,Bed Mobility, Transfers,Gait,Activity Tolerance Progress Towards Goals Slow Progress - Other Assessment Summary pt continues to require max A x 2 for mobility and max cues with all tasks and max A x 2 for standing balance using hemiwalker/FWW with max cues. needs assist to stabilize RLE. pt will require SNF rehab to improve strength and mobility. Goals Bed Mobility Goal Moderate Assistance Transfer Goal Moderate Assistance Gait Goal Moderate Assistance,Joshua Walker Gait Distance 25 Other Goals improve bed mobility, transfers, ambulation SBA using LRAD 100 ft SBA Days to Meet Goals 10 Frequency of Treatment Frequency Of Treatment Once a Day Treatment Plan Physical Therapy Treatment Plan Bed Mobility Training,Transfer Training,Gait Training, Therapeutic Exercise,Balance Retraining,Discharge Planning, Hot or Cold Pack,Neuromuscular Re-ed,Coordination Retraining ,Manual Therapy Precautions Other Precautions falls Recommendations To Nursing Amount of Assist Needed Mechanical Lift Discharge Recommendations PT Discharge Recommendations SNF Rehab Transportation Needs at Discharge Wheelchair/Cabulance,Stretcher /Ambulance
[2024-02-27] MEDS: DOCUSATE 100 MG CAPSULE PO (12:55)
[2024-02-27] MEDS: DONEPEZIL 5 MG TABLET 10 MG PO (17:52)
[2024-02-27] MEDS: ATORVASTATIN 20 MG TABLET 80 MG PO (21:01)
[2024-02-27] MEDS: MELATONIN 3 MG TABLET 6 MG PO (21:01)
[2024-02-28] VITALS (7 sets, daily range): BP systolic 134–165; BP diastolic 68–80; PULSE 60–61; RESP 16–20; TEMP 36.2–37; O2SAT 96–97
[2024-02-28 05:35] LABS: Add Manual Diff / Slide Review NO; Basophils Absolute Auto 100 /uL (0-100); Eosinophils Absolute Auto 100 /uL (0-450); Eosinophils Percent Auto 1.4 % (2-4); Hematocrit 36.6 % (36-46); Hemoglobin 12.5 g/dL (12.0-16.0); Lymphocytes Absolute Auto 2700 /uL (1100-4500); Lymphocytes Percent Auto 40.7 % (25-40); Mean Corpuscular Hemoglobin 29.8 PG (26-34); Mean Corpuscular Volume 87.7 fL (80-100); Monocytes Absolute Auto 700 /uL (0-900); Monocytes Percent Auto 10.7 % (3-14); Neutrophils Absolute Auto 3100 /uL (1500-7000); Neutrophils Percent Auto 46.2 % (50-75); Platelet Count 217 X10^3/uL (150-400); Red Blood Cell Count 4.18 X10^6/uL (4.0-5.2); Red Cell Distribution Width 13.8 % (11.6-14.8); White Blood Cell Count 6.7 X10^3/uL (4.5-11.0)
[2024-02-28 05:42] LABS: BUN Creatinine Ratio 24.5 (6-22); Blood Urea Nitrogen 12 mg/dL (7-17); Calcium 8.4 mg/dL (8.4-10.2); Carbon Dioxide 24 mmol/L (22-32); Chloride 96 mmol/L (98-107); Estimated Glomerular Filt Rate > 60 mL/min (>60); Glucose 110 mg/dL (80-110); HEMOLYSIS < 15 (0-50); Potassium 4.3 mmol/L (3.4-5.1); Sodium 125 mmol/L (137-145)
--- NOTE | 2024-02-28 08:07 | PM.DS.1 ---
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 This started around 9-10 AM. She denied any numbness, tingling or numbness at the time that she noticed. In the ER she was hypertensive, but had only NIH of 1 at that time. Stroke service was not called. She was given full dose aspirin and admitted for presumed TIA vs stroke. Upon my evaluation she had difficulty coordinating with her R hand, which was weak especially given she is normally R handed. Speech remained about the same and unchanged. MR done shortly after admission showed a subacute L infarct. Discharge Providers Provider Date of admission: 02/25/24 13:29 Discharge Date: 02/28/24 Primary care physician: Florinda Urbano MD Consults: 02/25/24 14:55 Consult to Discharge Planning Routine Comment: Consult to Occupational Therapy Evaluate & Treat Comment: Physician Instructions: Evaluate and treat Consult to Physical Therapy Evaluate & Treat Comment: Physician Instructions: Evaluate and Treat Consult to Speech Therapy Evaluate & Treat Comment: Physician Instructions: Evaluate and treat Discharge provider: Ángel Kline MD Summary Hospital Course Discharge Diagnosis: 1. Left basal ganglia CVA, present on admission and active. 2. Hypertensive urgency, present on admission and improved. 3. Cognitive impairment / dementia, present on admission and active. 4. Mild hyponatremia, present on admission and active. Hospital Course: The patient is a 78-year-old female with history of hypertension and cognitive impairment who presented with right sided weakness and difficulty finding words. Her initial NIH was less than 5. She was started on dual antiplatelet therapy. She had an MRI revealing both a subacute infarct as well as a aneurysm. The patient did have worsening neurologic symptoms prompting a 2nd CT which was negative for bleed. The patient had mild hyponatremia as well. The physician elected to stop Plavix because of her aneurysm and worsening neurologic status. She developed a fairly dense right-sided hemiparesis with a facial droop which is fairly persistent throughout her hospitalization. Speech did evaluate her and she did all right with thin liquids in small sips. She was stable for discharge on February 27. We will resume dual antiplatelet therapy for 21 days and then monotherapy with aspirin thereafter. Status at Discharge Cognitive/behavioral status at discharge: at baseline, oriented Functional status at discharge: bed bound Overall status at discharge: patient is not back to baseline Time Spent with Patient Time spent: Greater than 30 minutes Exam Vital Signs (past 8 hours): - 02/28/24 02:00 02/28/24 03:00 02/28/24 06:00 Temperature 98.6 F Pulse Rate 60 Respiratory Rate 20 Blood Pressure 155/71 H Pulse Oximetry 97 96 96 Oxygen Delivery Method Room Air Room Air Oxygen Flow Rate 0 Oxygen Delivery Method Room Air Oxygen Flow Rate 0 Narrative Exam Narrative: NAD, alert and oriented. Fluent speech. Lungs are clear, normal rate and effort. Heart is regular, no murmur gallop or rub. Abdomen is soft, non distended. Extremities are free of edema. Dense right hemiparesis. Facial droop. Objective ECG Impression: NSR Imaging CT scan - head: Radiologist's impression: No large vessel occlusion. 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 No evidence of rupture. Any quantitative measurements of stenosis were performed using NASCET criteria. MRI - head: Radiologist's impression: Subacute left basal ganglia infarct. No mass effect or midline shift. Underlying moderate atrophy and white matter chronic ischemic change Chest x-ray: Radiologist's impression: No acute cardiopulmonary abnormality is seen. MBSS: Radiologist's impression: No ailyn aspiration. Please see speech pathology note for full details. Echo: Radiologist's impression: The ejection fraction is estimated to be 60-65%. Diastolic parameters suggest probable normal left ventricular diastolic function and normal filling pressures. The right ventricle is normal in size and function. There is no Doppler evidence for an interatrial shunt. There is mild mitral regurgitation. Labs 02/28/24 04:55 02/28/24 04:55 Labs: Laboratory Results - last 24 hr 02/28/24 04:55 WBC 6.7 RBC 4.18 Hgb 12.5 Hct 36.6 MCV 87.7 MCH 29.8 MCHC 34.0 RDW 13.8 Plt Count 217 Neut % (Auto) 46.2 L Lymph % (Auto) 40.7 H [place] % (Auto) 10.7 Eos % (Auto) 1.4 L Baso % (Auto) 1.0 Neut # (Auto) 3100 Lymph # (Auto) 2700 [place] # (Auto) 700 Eos # (Auto) 100 Baso # (Auto) 100 Sodium 125 L Potassium 4.3 Chloride 96 L Carbon Dioxide 24 BUN 12 Creatinine 0.49 L Estimated GFR > 60 BUN/Creatinine Ratio 24.5 H Glucose 110 Calcium 8.4 PFSH Medical History History of COVID-19 (2019) Depression Spinal stenosis HTN (hypertension) Macular degeneration Dementia Rash (11/2023) Facet arthropathy, lumbar Lumbosacral radiculopathy Snoring Flexor hallucis longus tendonitis Hyponatremia Osteoporosis Internal hemorrhoids Surgical History Hx of bilateral cataract extraction Hx of dilation and curettage History of back surgery Social History household members: none Smoking Status: Never smoker alcohol intake: current Discharge Assessment & Plan Assessment and Plan Assessment: 1. Left basal ganglia CVA, present on admission and active. 2. Hypertensive urgency, present on admission and improved. 3. Cognitive impairment / dementia, present on admission and active. 4. Mild hyponatremia, present on admission and active. Plan of Treatment: She is [facility]. Discharge Plan Discharge Plan Patient Disposition: SNF Transfer to: [facility] Discharge orders & Medications Prescriptions: New atorvastatin 20 mg Tablet 80 mg PO BEDTIME Qty: 120 1RF aspirin 81 mg Tablet,Delayed Release (Dr/Ec) 81 mg PO DAILY Qty: 30 1RF clopidogrel [Plavix] 75 mg tablet 75 mg PO DAILY Qty: 21 0RF Continued acetaminophen [Pain Relief (acetaminophen)] 650 mg tablet extended release 650 mg PO BID Qty: 60 2RF Rx Instructions: These are to bubble packed please alendronate 70 mg tablet 70 mg PO .once weekly/sundays Qty: 4 2RF Rx Instructions: These are to bubble packed please donepezil 10 mg tablet 10 mg PO QPM Qty: 30 2RF Rx Instructions: These are to bubble packed please gabapentin 300 mg capsule 300 mg PO BID Qty: 60 2RF Rx Instructions: These are to bubble packed please lisinopril 20 mg tablet 20 mg PO DAILY Qty: 30 2RF Rx Instructions: These are to bubble packed please cholecalciferol (vitamin D3) 50 mcg (2,000 unit) capsule 50 mcg PO DAILY Qty: 30 2RF Rx Instructions: These are to bubble packed please Follow up/Referrals: Florinda Urbano MD [Primary Care Provider] - Diet/Activity/Treatments Liquid consistency: [place] Consistency Food texture: Blenderized or pureed Diet comment: [facility] Rehab type: Physical therapy, Occupational therapy and Speech therapy Visit Report/Discharge Packet Instructions: DI for Stroke-Ischemic Stand Alone Forms: Patient Portal/API Discharge Data Primary Care Provider: Florinda Urbano Quality VTE Deep Vein Thrombosis/Pulmonary Embolism Present on Admission: No
[2024-02-28] MEDS: lisinopriL 20 MG TABLET PO (09:33)
[2024-02-28] MEDS: GABAPENTIN 300 MG CAPSULE PO (09:33)
[2024-02-28] MEDS: DOCUSATE 100 MG CAPSULE PO (09:33)
[2024-02-28] MEDS: CHOLECALCIFEROL (VITAMIN D3) 1,000 UNIT TABLET 2000 UNIT PO (09:33)
[2024-02-28] MEDS: ENOXAPARIN 40 MG/0.4 ML SYRINGE SUBCUT (09:33)
[2024-02-28] MEDS: ASPIRIN EC 81 MG TABLET PO (09:33)
--- NOTE | 2024-02-28 13:44 | PC.NURSE ---
IVs removed, patient bathed, and belongings packed report given to Thom with [facility]- no further questions. Report given to Lindsay and Estefany all questions answered.
--- NOTE | 2024-02-28 13:57 | CM.DPNOTE ---
DCP Note BUILDING INSULATION INSTALLER reviewed EMR. Per chart review, plan to dc to [facility] today via BLS. BUILDING INSULATION INSTALLER spoke with Judith at ambulance, confirmed transport scheduled for 1300. BUILDING INSULATION INSTALLER spoke with Deana at [facility], confirmed dc plan. BUILDING INSULATION INSTALLER faxed/emailed meds, PASRR, and dc sum. BUILDING INSULATION INSTALLER updated PRODUCTION DRILLING MACHINE OPERATOR/RN. Gave RN report number. BUILDING INSULATION INSTALLER placed transport form, med list, nad PASRR in chart. BUILDING INSULATION INSTALLER met with pt and dtr in room. Confirmed dc plan. BUILDING INSULATION INSTALLER answered questions ot best of ability. Pt and dtr reported verbal understanding that pt may receive a bill for BLS transport. Dtr plans to meet pt at [facility] for intake ppwk aorund 1430. Plan: pt to dc today to [facility] at 1300 via [facility]. CM team will continue to follow as needed. MERCEDE[facility] [employer]
== END 2024-02-28 13:45 | DRG 65 ==
LOC: ED 11:00 → AC 13:30
PROVIDERS: Admitting Provider Internal Medicine; Emergency Provider Emergency Medicine; Family Provider Student in an Organized Health Care Education/Training Program; PCP Student in an Organized Health Care Education/Training Program; Referring Provider Emergency Medicine; Visit Provider Internal Medicine
DX: I63.9 Cerebral infarction, unspecified (principal); E87.1 Hypo-osmolality and hyponatremia; G81.91 Hemiplegia, unspecified affecting right dominant side; R29.701 NIHSS score 1; I16.0 Hypertensive urgency; F03.90 Unspecified dementia, unspecified severity, without behavioral disturbance, psychotic disturbance, mood disturbance, and anxiety; R29.714 NIHSS score 14; I67.1 Cerebral aneurysm, nonruptured; R29.810 Facial weakness; M81.0 Age-related osteoporosis without current pathological fracture; I10 Essential (primary) hypertension
CPT/HCPCS: 36415; 70450; 70496; 70498; 70551; 71045; 74230; 80048; 80053; 80061; 80305; 80320; 81001; 81003; 82550; 82962; 83036; 84443; 84484; 85025; 85610; 85730; 87635; 92523; 92610; 92611; 93005; 93306; 97129; 97163; 97166; 97530; 97535; 99285; J0360; J1650

== ENCOUNTER → 2025-03-28 12:06 | Outpatient (CLI) | payer MEDICARE, BC, SELFPAY ==
[2024-02-25 14:40] VITALS: BMI 27.2
--- NOTE | 2025-03-28 12:08 | DI.MRI.S_ITS ---
PROCEDURE: MR HEAD/BRAIN WO CON INDICATIONS: Hx of Aneurysm, hx of stroke TECHNIQUE: Non-contrast axial T1 spin echo, axial T2 fast spin echo, sagittal and axial FLAIR, coronal T2 fast spin echo, axial gradient echo, axial diffusion and ADC through the brain. COMPARISON: [facility], MR, MR HEAD/BRAIN WO CON, 04/22/2023, 17:06. [facility], MR, MR HEAD/BRAIN WO CON, 02/25/2024, 14:08. [facility], CT, CT STROKE, 02/25/2024, 10:58. [facility], CT, CT HEAD/BRAIN WO CON, 02/25/2024, 18:25. FINDINGS: Image quality: Excellent. CSF spaces: Ventricles appear symmetric in size and shape. Basal cisterns are patent. No extra-axial fluid collections. Brain: There is a completed infarct seen within the deep white matter of the left frontal lobe. No intracranial mass effects. There is cerebral volume loss for age. A tiny focus of prior hemorrhage can be seen within the right occipital region, as on series 10, image 10, which is similar to the prior. There are periventricular and deep white matter chronic small vessel ischemic changes. Brainstem appears normal. Diffusion- weighted images show no acute infarct. No chronic ischemic insults. Normal intravascular flow voids are present. Skull and face: Calvarial bone marrow is normal in signal. Orbits are normal. Note is made of bilateral lens replacements. Sinuses: There is at least moderate right-sided mastoid air cell fluid, with minimal left mastoid air cell fluid. No significant paranasal sinus disease is seen. IMPRESSION: Completed infarction seen within the deep white matter of the left frontal lobe, which is consistent with expected evolution of the previously seen infarct at this site. Dictated by: Betito Winn M.D. on 03/28/2025 at 16:48 Approved by: Betito Winn M.D. on 03/28/2025 at 16:51
== END ==
PROVIDERS: PCP Student in an Organized Health Care Education/Training Program; Referring Provider Student in an Organized Health Care Education/Training Program; Visit Provider Student in an Organized Health Care Education/Training Program
DX: I63.9 Cerebral infarction, unspecified (principal); Z86.79 Personal history of other diseases of the circulatory system
CPT/HCPCS: 36415; 70551; 82565

== ENCOUNTER → 2025-03-28 12:57 | Outpatient (CLI) | payer MEDICARE, BC, SELFPAY ==
[2024-02-25 14:40] VITALS: BMI 27.2
[2025-03-28 13:23] LABS: Estimated Glomerular Filt Rate > 60 mL/min (>60)
== END ==
PROVIDERS: PCP Student in an Organized Health Care Education/Training Program; Referring Provider Student in an Organized Health Care Education/Training Program; Visit Provider Student in an Organized Health Care Education/Training Program
DX: Z86.79 Personal history of other diseases of the circulatory system (principal)
CPT/HCPCS: 36415; 82565

== ENCOUNTER → 2025-04-11 10:29 | Outpatient (CLI) | payer MEDICARE, BC, SELFPAY ==
[2024-02-25 14:40] VITALS: BMI 27.2
--- NOTE | 2025-04-11 10:30 | DI.CT.S_ITS ---
PROCEDURE: CT ANGIO HEAD AND NECK INDICATIONS: history of Aneurysm TECHNIQUE: After the administration of intravenous contrast, 1 mm thick sections acquired from the aortic arch through the [place]. 3-dimensional irajsha-hwcweaadr-nybsycrohw (MIP) and/or volume rendering reformats were acquired of the central intracranial vasculature and neck separately. For radiation dose reduction, the following was used: automated exposure control, adjustment of mA and/or kV according to patient size. COMPARISON: [facility], CT, CT ANGIO HEAD AND NECK, 02/25/2024, 11:02. FINDINGS: Image quality: Diagnostic. Cerebral CT Angiogram: Internal carotid arteries: No acute findings. Intracranial ICA are patent with no significant stenosis. No occlusion. Stable saccular aneurysm extending off the inferior margin of the left M1 segment measuring 3 x 4 mm (stable compared to prior exam when remeasured series 5, image 129). Anterior cerebral arteries: Unremarkable. No significant stenosis. No occlusion. No aneurysm. Middle cerebral arteries: Unremarkable. No significant stenosis. No occlusion. No aneurysm. Posterior cerebral arteries: Unremarkable. No significant stenosis. No occlusion. No aneurysm. Basilar artery: Unremarkable. No significant stenosis. No occlusion. No aneurysm. Vertebral arteries: Unremarkable as visualized. Dural venous sinuses: Unremarkable given phase of enhancement. Other: Area of encephalomalacia within the periventricular left posterior frontal lobe. Neck CT Angiogram: Internal carotid arteries: Unremarkable. No significant stenosis. No dissection or occlusion. Common carotid arteries: Unremarkable. No significant stenosis. No dissection or occlusion. External carotid arteries: Unremarkable. No occlusion. Vertebral arteries: Unremarkable. No significant stenosis. No dissection or occlusion. Aortic Arch and Mediastinum: Partially visualized aortic arch unremarkable without evidence of aneurysm. Origins of the great vessels unremarkable. Other: Arterial phase soft tissues of the neck and chest are unremarkable. IMPRESSION: Stable saccular aneurysm arising off the inferior aspect of the M1 segment of the left MCA. Otherwise, no significant intracranial arterial abnormalities. No significant abnormality is seen within the arteries of the neck. Area of encephalomalacia within the periventricular left posterior frontal lobe from recent infarct. Any quantitative measurements of stenosis were performed using NASCET criteria. Dictated by: Pato Encarnacion M.D. on 04/11/2025 at 14:24 Approved by: Pato Encarnacion M.D. on 04/11/2025 at 14:35
== END ==
PROVIDERS: PCP Student in an Organized Health Care Education/Training Program; Referring Provider Student in an Organized Health Care Education/Training Program; Visit Provider Student in an Organized Health Care Education/Training Program
DX: I67.1 Cerebral aneurysm, nonruptured (principal); G93.89 Other specified disorders of brain; Z86.79 Personal history of other diseases of the circulatory system
CPT/HCPCS: 70496; 70498; Q9967